=== PATIENT | female | born 1990 | race Caucasian/White ===

== ENCOUNTER → 2020-08-27 08:16 | Outpatient (BNVA) | payer MEDICAID, SELFPAY | PROVIDERS: PCP Registered Nurse; Visit Provider Physician Assistant | DX: Z76.89 Persons encountering health services in other specified circumstances (principal) ==

== ENCOUNTER → 2020-09-03 08:25 | Outpatient (BNVA) | payer MEDICAID, SELFPAY | PROVIDERS: PCP Registered Nurse; Visit Provider Dietitian, Registered | DX: Z76.89 Persons encountering health services in other specified circumstances (principal) ==

== ENCOUNTER → 2020-09-17 08:35 | Outpatient (BNVA) | payer MEDICAID, SELFPAY | PROVIDERS: PCP Registered Nurse; Visit Provider Dietitian, Registered | DX: Z76.89 Persons encountering health services in other specified circumstances (principal) ==

== ENCOUNTER 2021-01-22 17:53 | Emergency (ER) | payer MEDICAID, SELFPAY ==
[2021-01-22 18:37] VITALS: BP 103/79; PULSE 97; RESP 16; TEMP 37; O2SAT 100; BMI 45.4
[2021-01-22] MEDS: Ketorolac Tromethamine 60 MG/2 ML VIAL IM (20:17)
[2021-01-22] MEDS: Lidocaine 4 % Patch ADH..PATCH 1 PATCH TRANSDERMA (20:17)
[2021-01-22] MEDS: Cyclobenzaprine HCl 10 MG TABLET PO (20:17)
--- NOTE | 2021-01-22 21:04 | ED_ITS ---
HPI - Back Pain/Injury General Chief Complaint: Back Pain/Injury Stated Complaint: LOWER BACK PAIN Time Seen by Provider: 01/22/21 19:41 Source: patient Mode of arrival: ambulatory Limitations: no limitations History of Present Illness HPI Narrative: 22-year-old female with bloating past medical history including history of lower back pain states she stooped over to oyster picker some toys from the floor and could not get back up felt sore in the right lower back. States similar episodes in the past he is overweight. She denies any fever, abdominal pain, nausea, vomiting. No GI symptoms. States pain feels better with certain positions and hurts to move in certain positions and alleviated with certain positions. Denies any fall or any other injury. MD elicited complaint: back pain Pertinent past history: prior back pain Onset (ago): day(s) Severity: moderate Similar Symptoms Previously: Yes Quality: aching Location: lumbar spine Radiation: none Exacerbating factors: movement Relieving factors: immobilization Context: while lifting Associated symptoms: denies other symptoms Treatments prior to arrival: cold therapy and heat therapy Work related injury: No Related Data Previous Rx's Medication Instructions Recorded calcium citrate 250 mg 2 tab PO BID #120 tab 09/04/20 calcium-vitamin D3 5 mcg (200 unit) tablet cyclobenzaprine 10 mg PO TID PRN #20 tab 01/22/21 ibuprofen 800 mg PO Q8H PRN #30 tab 01/22/21 oxycodone 5 mg PO Q8H PRN 3 Days #10 tab 01/22/21 Allergies Allergy/AdvReac Type Severity Reaction Status Date / Time No Known Allergies Allergy Verified 01/22/21 18:41 Review of Systems Review of Systems: Constitutional: No Weight loss, No Fever, No Chills, No Night Sweats, No Fatigue, No Malaise ENT/Mouth: No Hearing loss, No Ear Pain, No Nasal Congestion, No Sinus Pain, No Hoarseness, No sore throat, No Rhinorrhea, No Swallowing Difficulty Eyes: No Eye Pain, No Swelling, No Redness, No Foreign Body, No Discharge, No Vision Changes Cardiovascular: No Chest Pain, No SOB, No Dyspnea on Exertion, No Orthopnea, No Edema, No Palpitations Respiratory: No Cough, No Sputum, No Wheezing, No Smoke Exposure, No Dyspnea Gastrointestinal: No Nausea, No Vomiting, No Diarrhea, No Constipation, No abdominal Pain, No Hematochezia, No Melena Genitourinary: no irregular bleeding, No Dysuria, No Urinary Frequency, No Hematuria, No Urinary Incontinence, No Urgency, No Flank Pain, No Urinary Flow Changes, No Hesitancy Musculoskeletal: No joint pain, No Myalgias, No Joint Swelling, as noted per HPI Skin: No Skin Lesions, No rash Neuro: No Weakness, No Numbness, No Paresthesias, No Loss of Consciousness, No Dizziness, No Headache Psych: No Social Issues Heme/Lymph: No Bruising, No Bleeding,No Lymphadenopathy Endocrine: No Polyuria, No Polydipsia, No Temperature Intolerance Yes all other systems are reviewed and are negative [facility] Past Medical History Medical History Intestinal malabsorption following gastrectomy Morbid obesity Surgical History History of sleeve gastrectomy Hx of section Hx of removal of cyst Family History Family History (Updated 08/23/20 @ 08:57 by Liv Mccall MA) Mother No problems noted. Father No problems noted. Brother No problems noted. Brother No problems noted. Son No problems noted. Daughter No problems noted. Social History Social History (Updated 08/23/20 @ 08:58 by Liv Mccall MA) Alcohol intake: never Smoking Status: Never smoker Smoked in Last 30 Days: No Use of substances other than those prescribed or required for medical reasons: No Any prior treatment program specific to substance use: No Advance Directives: No Patient : No Physical Exam Vital Signs: Vital Signs: Last Vital Signs Temp 98.6 F 01/22/21 18:37 Pulse 97 01/22/21 18:37 Resp 16 01/22/21 18:37 BP 103/79 01/22/21 18:37 Pulse Ox 100 01/22/21 18:37 Body Mass Index 45.4 Reviewed Const: General: cooperative and healthy appearing; No acute distress or intoxicated appearing Nutritional Appearance: average body habitus Orientation/consciousness: patient oriented x3 HENMT: Head: Yes normal to inspection Ears: hearing grossly normal bilaterally Eyes: General: appearance normal, both eyes and all related structures Visual Strickland: normal visual strickland by confrontation Neck: Neck: Yes normal visual inspection, No positive Brudzinski's sign, No positive Kernig's sign and No tender Thyroid: Thyroid normal Chest: Chest palpation & inspection: normal inspection of the chest Resp: Effort & Inspection: normal respiratory effort Auscultation: clear to auscultation bilaterally Cardio: Jugular venous distension: no JVD Rhythm: regular rhythm Heart sounds: S1 normal heart sound present and S2 normal heart sound present GI: Inspection: Yes normal to inspection Percussion: Yes normal to percussion Auscultation: normal bowel sounds : General: Yes no CVA tenderness Back/Spine/Pelvis: Back: no CVA tenderness Thoracic/Lumbar Spine: paraspinal muscle tenderness on the right (Over the paraspinous muscle region. No rash, step-off, radiation.) in the lower lumbar and No straight leg raise positive Skin: General skin exam: no rashes or lesions noted Neuro: General: patient oriented x3 Extrem: General: Yes normal to inspection Course Course Course Narrative: AP 30-year-old female presents with acute right lower back pain history obesity stooped over felt like pulling sensation the right lower back findings consistent with lumbar paraspinous muscle strain. Better after IM Toradol and lidocaine patch. No low back pain red flags. Ambulatory status with gait. No signs of GI symptoms. No loss of bowel or bladder control. No low back pain red flags. Will discharge home with close precaution return follow-up instructions. Stable for discharge. Reevaluation(s) Reevaluation #1: Mass pat reviewed without concerning pattern. On re-evaluation feels much better stable for discharge. Discharge Plan Discharge Clinical Impression: Strain of lumbar region Patient Disposition: Home, Self-Care Instructions: Low Back Strain (ED), Lower Back Exercises (ED) Additional Instructions: Warm compresses Gentle stretching Who precautions Take medication prescribed Do not drink alcohol or drive while taking the pain and muscle relaxants. Return to emergency room if any concerns or worsening symptoms Thank you Prescriptions: New cyclobenzaprine 10 mg tablet 10 mg PO TID PRN (Reason: muscle spasm) Qty: 20 RF: 0 ibuprofen 800 mg tablet 800 mg PO Q8H PRN (Reason: pain) Qty: 30 RF: 0 oxycodone 5 mg tablet 5 mg PO Q8H PRN (Reason: pain) 3 Days Qty: 10 RF: 0 No Action calcium citrate-vitamin D3 250 mg-5 mcg (200 unit) tablet 2 tab PO BID Qty: 120 RF: 11 Referrals: Physician,Unknown [Primary Care Provider] - 5 days
== END 2021-01-22 21:52 | disposition home or self-care (01) ==
PROVIDERS: Emergency Provider Internal Medicine
DX: S39.012A Strain of muscle, fascia and tendon of lower back, initial encounter (principal); X58.XXXA Exposure to other specified factors, initial encounter; Y93.9 Activity, unspecified; Y92.9 Unspecified place or not applicable; Y99.9 Unspecified external cause status
CPT/HCPCS: 96372; 99284; J1885

== ENCOUNTER 2021-12-03 15:45 | Outpatient (REF) | payer MEDICAID, SELFPAY ==
[2021-12-03 17:01] LABS: MANUAL DIFF FLAG NO
[2021-12-03 17:39] LABS: Basophils Percent Auto 0.5 % (0-2); Eosinophils Percent Auto 0.3 % (0-4); Hematocrit 38.6 % (37.0-47.0); Hemoglobin 12.4 g/dl (12.0-16.0); Imm Gran Abs Auto 0.02 X10*3/uL (0.00-0.03); Imm Gran Pct Auto 0.3 % (0.0-0.4); Lymphocytes Absolute Auto 2.2 X10*3/uL (1.2-4.9); Lymphocytes Percent Auto 34.9 % (20-40); Mean Corpuscular HGB Conc 32.1 g/dl (31.0-35.0); Mean Corpuscular Hemoglobin 27.9 pg (27.0-33.0); Mean Corpuscular Volume 86.9 fL (80.0-98.0); Monocytes Absolute Auto 0.3 X10*3/uL (0.1-1.2); Monocytes Percent Auto 4.9 % (2-11); Neutrophils Absolute Auto 3.7 x10*3/uL (2.0-8.3); Neutrophils Percent Auto 59.1 % (45-73); Platelet Count 342 X10*3/uL (160-400); Red Blood Count 4.44 X10*6/uL (4.20-5.50); Red Cell Distribution Width 13.3 % (11.0-16.0); White Blood Count 6.3 X10*3/uL (4.8-10.8)
[2021-12-03 17:48] LABS: Estimated Average Glucose 94 mg/dL; Hemoglobin A1c % 4.9 %
[2021-12-03 18:51] LABS: Anion Gap 14 (12-20); Blood Urea Nitrogen 9 mg/dL (9-16); C Reactive Protein 0.53 mg/dL (< or = 0.50); Calcium 9.6 mg/dL (8.4-10.2); Carbon Dioxide 22 mmol/L (22-29); Chloride 108 mmol/L (96-108); Cholesterol 155 mg/dL; Estimated Glomerular Filt Rate > 60; Glucose Random 78 mg/dL (60-115); HDL Cholesterol 43 mg/dL; Iron 30 mcg/dL (30-160); LDL Cholesterol Calculated 100 mg/dl; Potassium 4.1 mmol/L (3.3-5.1); Sodium 140 mmol/L (135-145); Triglycerides 64 mg/dL
[2021-12-03 18:56] LABS: Percent Iron Saturation 9 % (15-50); Total Iron Binding Capacity 334 mcg/dL (228-428); Unsaturated Iron Binding 304 ug/dL
[2021-12-03 19:09] LABS: Ferritin 21 ng/mL (10-122); Vitamin D 25-OH Total 18.9 ng/mL (>30)
[2021-12-03 19:20] LABS: Folate 9.9 ng/mL (> or = 4.0); Vitamin B12 245 pg/mL (200-900)
[2021-12-09 02:46] LABS: Zinc 61 mcg/dL (60-130)
[2021-12-11 18:37] LABS: Vitamin A 32 mcg/dL (38-98); Vitamin B1 10 nmol/L (8-30)
== END 2021-12-03 15:46 | disposition home or self-care (01) ==
LOC: HO.LAB 15:45
PROVIDERS: PCP Registered Nurse Community Health; Referring Provider Registered Nurse Community Health; Visit Provider Physician Assistant Surgical
DX: E66.01 Morbid (severe) obesity due to excess calories (principal)
CPT/HCPCS: 36415; 80048; 80061; 82306; 82607; 82728; 82746; 83036; 83540; 84425; 84443; 84590; 84630; 85025; 86140; 99212

== ENCOUNTER → 2022-01-20 15:28 | Outpatient (BNVA) | payer MEDICAID, SELFPAY | PROVIDERS: PCP Registered Nurse Community Health; Referring Provider Registered Nurse Community Health; Visit Provider Physician Assistant Surgical | DX: E66.01 Morbid (severe) obesity due to excess calories (principal); Z68.41 Body mass index [BMI] 40.0-44.9, adult; Z98.84 Bariatric surgery status | CPT/HCPCS: 99212 ==

== ENCOUNTER 2022-06-30 14:28 | Outpatient (REF) | payer MEDICAID, SELFPAY ==
[2022-06-30 14:59] LABS: HCG Quantitative < 2 mIU/mL
== END 2022-06-30 14:29 | disposition home or self-care (01) ==
LOC: HO.LAB 14:28
PROVIDERS: Visit Provider Registered Nurse
DX: Z00.00 Encounter for general adult medical examination without abnormal findings (principal)
CPT/HCPCS: 36415; 84702

== ENCOUNTER 2022-07-30 12:47 | Outpatient (REF) | payer MEDICAID, SELFPAY ==
--- NOTE | ~2022-07-30 | US_ITS ---
EXAMINATION: US PELVIS CLINICAL INFORMATION: Follow-up left ovarian cyst from 2018, irregular periods. COMPARISON: 12/24/2017 TECHNIQUE: Ultrasound of the pelvis is performed using both transabdominal and transvaginal transducers along with Doppler. Transvaginal imaging is performed due to inadequate visualization transabdominally. FINDINGS: The uterus is heterogeneous and measures 9.7 x 4.0 x 5.5 cm. No discrete fibroids identified. Endometrial thickness is 1.9 cm. Endometrium appears extremely heterogeneous. Moderate amount of free fluid in the pelvis. Nabothian cysts identified. Right ovary is unremarkable and measures 3.5 x 2.4 x 2.7 cm, volume 12.0 mL. Left ovary measures 3.0 x 2.5 x 3.5 cm, volume 13.2 mL. Left ovarian 1.7 x 1.7 x 1.6 cm complex cyst with thick irregular villalobos, possibly a corpus luteum. US/US pelvic and transvaginal IMPRESSION: 1. No discrete fibroids. 2. Extremely heterogeneous endometrium with thickness of 1.9 cm. Correlation with menstrual history recommended. 3. Moderate amount of free fluid in the pelvis. 4. Left ovarian 1.7 cm complex cyst with thick villalobos, possibly a corpus luteum.
== END 2022-07-30 12:48 | disposition home or self-care (01) ==
LOC: HO.HMGCX 12:47
PROVIDERS: PCP Registered Nurse Community Health; Visit Provider Advanced Practice Midwife
DX: N83.292 Other ovarian cyst, left side (principal); N92.0 Excessive and frequent menstruation with regular cycle
CPT/HCPCS: 76830; 76856

== ENCOUNTER 2022-09-27 20:11 | Outpatient (REF) | payer MEDICAID, SELFPAY ==
[2022-09-27 20:38] LABS: COVID-19 Test Negative (Negative); IDNOW Serial# 6674DD1D
== END 2022-09-27 20:12 | disposition home or self-care (01) ==
LOC: HO.LAB 20:11
PROVIDERS: Visit Provider Internal Medicine
DX: Z20.822 Contact with and (suspected) exposure to COVID-19 (principal)
CPT/HCPCS: 87635

== ENCOUNTER 2022-12-24 10:50 | Outpatient (REF) | payer MEDICAID, SELFPAY ==
[2022-12-24 11:29] LABS: MANUAL DIFF FLAG NO
[2022-12-24 11:31] LABS: Basophils Percent Auto 0.5 % (0-2); Eosinophils Percent Auto 0.6 % (0-4); Hematocrit 36.6 % (37.0-47.0); Hemoglobin 11.8 g/dl (12.0-16.0); Imm Gran Abs Auto 0.03 X10*3/uL (0.00-0.03); Imm Gran Pct Auto 0.5 % (0.0-0.4); Lymphocytes Absolute Auto 2.3 X10*3/uL (1.2-4.9); Lymphocytes Percent Auto 35.7 % (20-40); Mean Corpuscular HGB Conc 32.2 g/dl (31.0-35.0); Mean Corpuscular Hemoglobin 26.1 pg (27.0-33.0); Mean Platelet Volume 9.9 fL (9.4-12.3); Monocytes Absolute Auto 0.4 X10*3/uL (0.1-1.2); Monocytes Percent Auto 6.2 % (2-11); Neutrophils Absolute Auto 3.7 x10*3/uL (2.0-8.3); Neutrophils Percent Auto 56.5 % (45-73); Platelet Count 361 X10*3/uL (160-400); Red Blood Count 4.52 X10*6/uL (4.20-5.50); Red Cell Distribution Width 13.3 % (11.0-16.0); White Blood Count 6.5 X10*3/uL (4.8-10.8)
[2022-12-24 11:55] LABS: Iron 55 mcg/dL (30-160); Percent Iron Saturation 18 % (15-50); Total Iron Binding Capacity 312 mcg/dL (228-428); Unsaturated Iron Binding 257 ug/dL
[2022-12-24 12:13] LABS: Ferritin 12 ng/mL (10-122); Vitamin D 25-OH Total 13.4 ng/mL (>30)
== END 2022-12-24 10:51 | disposition home or self-care (01) ==
LOC: HO.LAB 10:50
PROVIDERS: PCP Registered Nurse; Visit Provider Registered Nurse
DX: R53.83 Other fatigue (principal)
CPT/HCPCS: 36415; 82306; 82728; 83540; 84443; 85025

== ENCOUNTER 2023-03-22 19:10 | Emergency (ER) | payer MEDICAID, SELFPAY ==
[2023-03-22 19:24] VITALS: BP 137/82; PULSE 82; RESP 16; TEMP 37.2; O2SAT 100; BMI 46.3
--- NOTE | 2023-03-22 19:28 | ED.GENADULT ---
HPI - General Adult General Chief complaint: General Medical Stated complaint: bump on back of head Time Seen by Provider: 03/23/23 00:56 Source: patient, RN notes reviewed and old records reviewed Mode of arrival: ambulatory Limitations: no limitations History of Present Illness HPI narrative: 32-year-old female presents for evaluation of a rash on her right forearm She also complains of a bump behind her right ear in the back of her head Patient reports that she frequently goes to the park. About 1 week ago she noticed a small red rash on her right forearm/wrist while washing hands. She states that it has been getting progressively more red over last few days She reports over last 2 days she noticed a small bump behind her right ear Denies any fevers or chills No other complaints or concerns Related Data Previous Rx's Medication Instructions Recorded doxycycline hyclate 100 mg tablet 100 mg PO BID #20 tabs 03/23/23 Allergies Allergy/AdvReac Type Severity Reaction Status Date / Time No Known Allergies Allergy Verified 12/03/21 15:57 Review of Systems Constitutional: Constitutional: Denies chills, Denies fever(s) and Reports headache(s) ENT: Reports headache(s) Integumentary/Breasts: Skin/Breast: Reports erythema and Reports rash Neurologic: Reports headache(s) Hematologic/Lymphatic: Hematologic/Lymphatic: Reports lymphadenopathy PMFSH Past Medical History Medical History Intestinal malabsorption following gastrectomy Morbid obesity Surgical History History of sleeve gastrectomy Hx of section Hx of removal of cyst Family History Family History Mother No problems noted. Father No problems noted. Brother No problems noted. Brother No problems noted. Son No problems noted. Daughter No problems noted. Social History Social History Alcohol intake: current Alcohol intake frequency: holidays/special occasions only Patient Tobacco Use Status: Current someday Tobacco user Smoked in Last 30 Days: No e-Cigarette/Vaping Use: Currently Using Use of substances other than those prescribed or required for medical reasons: No Advance Directives: No Advance Directives Information Provided: Yes Physical Exam ED Vital Signs: Vital Signs - 24 hr 03/22/23 19:24 03/22/23 23:51 Temperature 99.0 F 97.8 F Pulse Rate 82 74 Respiratory Rate 16 16 Blood Pressure 137/82 118/72 Pulse Oximetry 100 100 Oxygen Delivery Method Room Air Room Air BMI result Body Mass Index 46.3 Const Other: Enlarged right posterior auricular lymphadenopathy no overlying skin changes HENMT Ears: external ears normal, TM's normal bilaterally and TM normal on the right Skin Other: Small round erythematous rash that does have a slight target appearance Course Course Course Narrative: RME: 32 yold female presents to the ED for right arm bug bite with small erythema itchiness. Secondary complaint is painful lump on right side of occipial/neck. no posterior cervical spine tenderness. Medical Decision Making Medical Decision Making MDM Narrative: Patient has a small area of erythema that is likely of infectious in etiology possibly from a bug bite. It does have a slight target appearance raising concern for Lyme disease. Will send a Lyme titer and the patient be discharged with doxycycline b.i.d. times 10 days. A Lyme test was ordered. The patient has no evidence of otitis media, otitis externa or mastoiditis Differential Diagnosis Cellulitis Lymphadenopathy Lyme disease Otitis media Otitis externa Lab Data Labs: Lab Results 03/22/23 Range/Units 23:56 Urine Test NEGATIVE (NEGATIVE) Discharge Plan Discharge Clinical Impression: Cellulitis Patient Disposition: Home, Self-Care Instructions: Cellulitis (ED) Additional Instructions: You appear to have an early cellulitis. It is not entirely clear if it is actually Lyme disease or not. And Lyme disease test was ordered but will not result today. Take doxycycline twice daily for 10 days. Return for new or worsening symptoms Prescriptions: New doxycycline hyclate 100 mg tablet 100 mg PO BID Qty: 20 0RF
[2023-03-22 23:51] VITALS: BP 118/72; PULSE 74; RESP 16; TEMP 36.6; O2SAT 100
--- NOTE | 2023-03-22 23:58 | MHC.EDTECH ---
THIS PCT ASSUMED CARE OF PT AT 2315 ,VITALS SIGN TAKEN ,PT URINE SAMPLE COLLECTED AND SENT TO LAB .
[2023-03-23 01:25] VITALS: BP 126/74; PULSE 72; RESP 16; TEMP 37.1; O2SAT 97
== END 2023-03-23 01:26 | disposition home or self-care (01) ==
PROVIDERS: Emergency Provider Emergency Medicine
DX: L03.113 Cellulitis of right upper limb (principal); R21 Rash and other nonspecific skin eruption; R22.1 Localized swelling, mass and lump, neck
CPT/HCPCS: 36415; 81025; 86617; 86618; 99283; 99284

== ENCOUNTER 2023-04-09 12:17 | Outpatient (REF) | payer MEDICAID, SELFPAY ==
[2023-04-09 13:55] LABS: MANUAL DIFF FLAG NO
[2023-04-09 14:03] LABS: Basophils Percent Auto 0.3 % (0-2); Eosinophils Percent Auto 0.2 % (0-4); Hematocrit 37.6 % (37.0-47.0); Imm Gran Abs Auto 0.02 X10*3/uL (0.00-0.03); Imm Gran Pct Auto 0.3 % (0.0-0.4); Lymphocytes Absolute Auto 1.9 X10*3/uL (1.2-4.9); Lymphocytes Percent Auto 31.4 % (20-40); Mean Corpuscular HGB Conc 31.9 g/dl (31.0-35.0); Mean Corpuscular Hemoglobin 26.6 pg (27.0-33.0); Mean Corpuscular Volume 83.4 fL (80.0-98.0); Mean Platelet Volume 10.8 fL (9.4-12.3); Monocytes Absolute Auto 0.5 X10*3/uL (0.1-1.2); Monocytes Percent Auto 7.5 % (2-11); Neutrophils Absolute Auto 3.7 x10*3/uL (2.0-8.3); Neutrophils Percent Auto 60.3 % (45-73); Platelet Count 332 X10*3/uL (160-400); Red Blood Count 4.51 X10*6/uL (4.20-5.50); Red Cell Distribution Width 13.4 % (11.0-16.0); White Blood Count 6.1 X10*3/uL (4.8-10.8)
[2023-04-09 14:53] LABS: Iron 58 mcg/dL (30-160); Percent Iron Saturation 19 % (15-50); Total Iron Binding Capacity 308 mcg/dL (228-428); Unsaturated Iron Binding 250 ug/dL
[2023-04-09 14:54] LABS: Ferritin 19 ng/mL (10-122)
== END 2023-04-09 12:18 | disposition home or self-care (01) ==
LOC: HO.LAB 12:17
PROVIDERS: Visit Provider Registered Nurse
DX: E61.1 Iron deficiency (principal)
CPT/HCPCS: 36415; 82728; 83540; 85025

== ENCOUNTER 2023-08-08 15:10 | Emergency (ER) | payer OTHER, SELFPAY ==
--- NOTE | ~2023-08-08 | XR_ITS ---
EXAMINATION: XR LUMBOSACRAL SPINE CLINICAL INFORMATION: Back pain COMPARISON: None available. TECHNIQUE: Three views of the lumbosacral spine. FINDINGS: The vertebral bodies and posterior elements are normal. The disc spaces are preserved and the vertebral alignment is normal. The paraspinal soft tissues are normal. XR/XR lumbar spine 2-3V IMPRESSION: No significant osseous changes to explain patient's pain symptoms.
[2023-08-08 15:50] VITALS: BP 146/81; PULSE 100; RESP 18; TEMP 36.7; O2SAT 98; BMI 45.2
--- NOTE | 2023-08-08 15:56 | ED.GENADULT ---
HPI - General Adult General Chief complaint: Back Pain/Injury Stated complaint: R lower back pain Time Seen by Provider: 08/08/23 19:43 Source: patient Mode of arrival: ambulatory Limitations: no limitations History of Present Illness HPI narrative: 33 yold female presents to the ED for chronic low back pain exacerbation since this morning. patient states pain is worse on movement. patient denies any urinary/bowel incontinience, abdominal pain, nausea, vomitting, dysuira, hematuira, numbness/tingling of lower extremiteis, or any recent trauam. Related Data Previous Rx's Medication Instructions Recorded doxycycline hyclate 100 mg tablet 100 mg PO BID #20 tabs 03/23/23 cyclobenzaprine 10 mg tablet 10 mg PO TID PRN muscle spasm 5 08/08/23 days #15 tabs ketorolac 10 mg tablet 10 mg PO QID PRN pain 5 days #20 08/08/23 tabs Allergies Allergy/AdvReac Type Severity Reaction Status Date / Time No Known Allergies Allergy Verified 08/08/23 15:50 Review of Systems Review of Systems: low back pain worse no movement. Yes all other systems are reviewed and are negative [facility] Past Medical History Medical History Intestinal malabsorption following gastrectomy Morbid obesity Surgical History History of sleeve gastrectomy Hx of section Hx of removal of cyst Family History Family History Mother No problems noted. Father No problems noted. Brother No problems noted. Brother No problems noted. Son No problems noted. Daughter No problems noted. Social History Social History Alcohol intake: current Alcohol intake frequency: holidays/special occasions only Patient Tobacco Use Status: Current someday Tobacco user e-Cigarette/Vaping Use: Currently Using Advance Directives: No Advance Directives Information Provided: No Physical Exam ED Vital Signs: Vital Signs - 24 hr 08/08/23 15:50 Temperature 98.0 F Pulse Rate 100 Respiratory Rate 18 Blood Pressure 146/81 H Pulse Oximetry 98 Oxygen Delivery Method Room Air BMI result Body Mass Index 45.2 Const General: cooperative, healthy appearing, comfortable, no acute distress, well developed, alert and awake Orientation/consciousness: oriented to person, oriented to place, oriented to time and patient oriented x3 HENVA Head: Yes normal to inspection, Yes No palpable skull fracture present, Yes normocephalic and Yes atraumatic Ears: hearing grossly normal bilaterally, external ears normal, TM's normal bilaterally, TM normal on the right, TM normal on the left and EAC's normal Throat: Yes posterior oropharynx normal, Yes tonsils normal and Yes uvula midline Eyes General: appearance normal, both eyes and all related structures Neck Neck: Yes normal visual inspection, Yes full ROM, Yes no lymphadenopathy, Yes no meningeal signs, Yes trachea midline, Yes supple, No anterior neck swelling and No tender Chest Chest palpation & inspection: normal inspection of the chest and normal palpation of entire chest wall Resp Effort & Inspection: normal respiratory effort and able to speak in complete sentences Auscultation: clear to auscultation bilaterally Cardio Jugular venous distension: no JVD Heart sounds: S1 normal heart sound present and S2 normal heart sound present GI Inspection: Yes normal to inspection Palpation (GI): Soft to palpation, not firm, nontender, no guarding and not rigid General: Yes no CVA tenderness Back/Spine/Pelvis Back: no CVA tenderness and back tenderness (lumbar spine tenderness) Skin General skin exam: no rashes or lesions noted, elasticity normal and turgor normal Neuro General: oriented to person, oriented to place, oriented to time, patient oriented x3, gait normal, tone normal, moves all extremities, Normal light touch and pain sensation, no meningeal signs and no focal motor deficits Extrem General: Yes normal to inspection, Yes full ROM and Yes capillary refill normal Psych Appearance: grossly normal, well kempt and not disheveled Course Course Course Narrative: RME: 33 yold female presents to the ED for lower back that is worse movement. Patient states no symptoms or abdominal pain. xray and UA uCG ordered Medications Administered Discontinued Medications Generic Name Dose Route Start Last Admin Trade Name Freq PRN Reason Stop Dose Admin Cyclobenzaprine HCl 10 mg 08/08/23 19:50 08/08/23 20:12 Cyclobenzaprine Hcl 10 Mg Tablet PO 08/08/23 19:51 10 mg ONCE ONE Administration Ketorolac Tromethamine 30 mg 08/08/23 19:50 08/08/23 20:12 Ketorolac Tromethamine 30 Mg/Ml Vial IM 08/08/23 19:51 30 mg ONCE ONE Administration Medical Decision Making Medical Decision Making [facility] Narrative: 33 yold female presents to the ED chronic low back pain exacerbation that is worse on movement and radating down legs. patient deniesny any urinary/owel incontinecen, IV drug use, pmh of HIV/HEpatitis, recent trauma, abdoominal pain, nuasea, vomitting, dysuria, hematuria, flank pain, or weakness in extremiteis, UA and xray normal. Sciatica diagnosis. not suspecting caudina equina or epidural absscess. Differential Diagnosis Differential Diagnoses: The differential diagnosis associated with the presentation includes (uti, spine fracture, kidney stones, pyelonephritis, lumbar radicoplathy, scaiatica) Admission/Observation Consideration of admission/observation: Escalation of care including admission/observation considered Lab Data Labs: Lab Results 08/08/23 Range/Units 16:25 Urine Color Yellow Urine Appearance Clear Urine pH 6.0 (5.0-9.0) Ur Specific [place] 1.020 (1.005-1.025) Urine Protein Negative (Neg-Trace) mg/dL Urine Glucose (UA) Negative (Negative) mg/dL Urine Ketones Negative (Negative) mg/dL Urine Blood Negative (Negative) Urine Nitrite Negative (Negative) Ur Leukocyte Esterase Trace H (Negative) Urine RBC 0-2 (0-2) /HPF Urine WBC 0-5 (0-5) /HPF Ur Squamous Epith Cells 11-20 (0-2) /HPF Urine Bacteria 4+ (None Seen) Hyaline Casts 0-2 (0-2) /LPF Urine Test NEGATIVE (NEGATIVE) Independent Interpretation I performed an independent interpretation of an: Plain X-Ray Radiology Impression Discussion of test interpretation with radiology: I have reviewed the radiologist's reading. External Record Review External record reviewed: Other (Prior ED visit) Prescription Management I considered prescription management with: Pain Medication Discharge Plan Discharge Clinical Impression: Sciatica Patient Disposition: Home, Self-Care Instructions: Sciatica (ED), Acute Low Back Pain (ED) Additional Instructions: Return to the ED for any worsening back pain, urinary/bowel incontinence, abdominal pain, nausea, vomiting, flank pain, fever, chills, numbness/tingling/paralysis of lower extremities, or any other concerning symptoms. Pleaes follow up with PCP Prescriptions: New cyclobenzaprine 10 mg tablet 10 mg PO TID PRN (Reason: muscle spasm) 5 Days Qty: 15 0RF Rx Instructions: side effect is drowsiness. Do not take not at work or while driving. ketorolac 10 mg tablet 10 mg PO QID PRN (Reason: pain) 5 Days Qty: 20 0RF Rx Instructions: received toradol 30mg IM at home No Action doxycycline hyclate 100 mg tablet 100 mg PO BID Qty: 20 0RF Stand Alone Forms: Work/School Release Interventions: ED Discharge Assessment Last Done: 08/08/23 21:32 Discharge Date/Time: 08/08/23 21:33 Print Language: Kyrgyz
[2023-08-08 16:49] LABS: Appearance Urine Clear; Color Urine Yellow; Glucose Urine UA Negative (Negative); Leukocyte Esterase Urine Trace (Negative); Nitrite Urine Negative (Negative); UMIC TRIGGER UACC YES; Urine Blood Negative (Negative); Urine Ketones Negative (Negative); Urine Protein Negative (Neg-Trace)
[2023-08-08 16:51] LABS: Bacteria Urine 4+ (None Seen); Hyaline Casts Urine 0-2 /LPF (0-2); RBC Urine 0-2 /HPF (0-2); WBC Urine 0-5 /HPF (0-5)
[2023-08-08 16:54] LABS: UPreg QC Valid YES; Urine Pregnancy NEGATIVE (NEGATIVE)
[2023-08-08] MEDS: Cyclobenzaprine HCl 10 MG TABLET PO (20:12)
[2023-08-08] MEDS: Ketorolac Tromethamine 30 MG/ML VIAL IM (20:12)
== END 2023-08-08 21:33 | disposition home or self-care (01) ==
PROVIDERS: Physician Assistant; Emergency Provider Student in an Organized Health Care Education/Training Program
DX: M54.41 Lumbago with sciatica, right side (principal); M79.605 Pain in left leg; M79.604 Pain in right leg; F17.200 Nicotine dependence, unspecified, uncomplicated; Z71.6 Tobacco abuse counseling; Z79.899 Other long term (current) drug therapy
CPT/HCPCS: 72100; 81001; 81025; 96372; 99283; 99284; J1885

== ENCOUNTER 2023-08-11 15:16 | Outpatient (REF) | payer OTHER, SELFPAY ==
[2023-08-11 17:44] LABS: Anion Gap 9 (12-20); Blood Urea Nitrogen 12 mg/dL (9-16); Calcium 8.8 mg/dL (8.4-10.2); Carbon Dioxide 26 mmol/L (22-29); Chloride 107 mmol/L (96-108); Estimated Glomerular Filt Rate > 60; Glucose Random 82 mg/dL (60-115); Sodium 138 mmol/L (135-145)
== END 2023-08-11 15:17 | disposition home or self-care (01) ==
LOC: HO.CHCLDS 15:16
PROVIDERS: Visit Provider Internal Medicine
DX: M54.50 Low back pain, unspecified (principal); M54.2 Cervicalgia; G89.29 Other chronic pain
CPT/HCPCS: 36415; 80048

== ENCOUNTER 2023-10-07 14:00 | Outpatient (RCR) | payer OTHER, SELFPAY | END 2023-10-19 11:00 | disposition home or self-care (01) | LOC: HO.PT 14:00 | PROVIDERS: PCP Registered Nurse; Visit Provider Internal Medicine | DX: G89.29 Other chronic pain (principal); M54.50 Low back pain, unspecified | CPT/HCPCS: 97110; 97112; 97161 ==

== ENCOUNTER 2024-01-06 08:41 | Outpatient (REF) | payer OTHER, SELFPAY ==
[2024-01-06 10:02] LABS: MANUAL DIFF FLAG NO
[2024-01-06 10:07] LABS: Basophils Percent Auto 0.6 % (0-2); Eosinophils Percent Auto 0.3 % (0-4); Hematocrit 39.5 % (37.0-47.0); Hemoglobin 12.8 g/dl (12.0-16.0); Imm Gran Abs Auto 0.03 X10*3/uL (0.00-0.03); Imm Gran Pct Auto 0.4 % (0.0-0.4); Lymphocytes Absolute Auto 2.1 X10*3/uL (1.2-4.9); Lymphocytes Percent Auto 30.6 % (20-40); Mean Corpuscular HGB Conc 32.4 g/dl (31.0-35.0); Mean Corpuscular Hemoglobin 26.8 pg (27.0-33.0); Mean Corpuscular Volume 82.8 fL (80.0-98.0); Mean Platelet Volume 10.5 fL (9.4-12.3); Monocytes Absolute Auto 0.5 X10*3/uL (0.1-1.2); Monocytes Percent Auto 6.8 % (2-11); Neutrophils Absolute Auto 4.3 x10*3/uL (2.0-8.3); Neutrophils Percent Auto 61.3 % (45-73); Platelet Count 395 X10*3/uL (160-400); Red Blood Count 4.77 X10*6/uL (4.20-5.50); Red Cell Distribution Width 13.2 % (11.0-16.0); White Blood Count 6.9 X10*3/uL (4.8-10.8)
[2024-01-06 10:11] LABS: Appearance Urine Clear; Color Urine Dark Yellow; Glucose Urine UA Negative (Negative); Leukocyte Esterase Urine Negative (Negative); Nitrite Urine Negative (Negative); PH 5.5 (5.0-9.0); Specific Gravity - Urine 1.025 (1.005-1.025); Urine Blood Negative (Negative); Urine Ketones Trace mg/dL (Negative); Urine Protein Negative (Neg-Trace)
[2024-01-06 10:14] LABS: Bacteria Urine Trace (None Seen); Hyaline Casts Urine 0-2 /LPF (0-2); RBC Urine 0-2 /HPF (0-2); Squamous Epithelial Cell Urine 0-2 /HPF (0-2); WBC Urine 0-5 /HPF (0-5)
[2024-01-06 10:31] LABS: Iron 35 mcg/dL (30-160); Percent Iron Saturation 10 % (15-50); Total Iron Binding Capacity 359 mcg/dL (228-428); Unsaturated Iron Binding 324 ug/dL
[2024-01-06 10:45] LABS: Ferritin 10 ng/mL (10-122); Vitamin D 25-OH Total 16.1 ng/mL (>30)
[2024-01-06 17:54] LABS: Folate 6.8 ng/mL (> or = 4.0); Vitamin B12 279 pg/mL (200-900)
== END 2024-01-06 08:42 | disposition home or self-care (01) ==
LOC: HO.LAB 08:41
PROVIDERS: PCP Registered Nurse; Visit Provider Registered Nurse
DX: E61.1 Iron deficiency (principal); E55.9 Vitamin D deficiency, unspecified; R10.9 Unspecified abdominal pain; Z98.84 Bariatric surgery status
CPT/HCPCS: 36415; 81001; 82306; 82607; 82728; 82746; 83540; 85025

== ENCOUNTER 2024-01-12 18:18 | Outpatient (REF) | payer OTHER, SELFPAY | END 2024-01-12 18:19 | disposition home or self-care (01) | LOC: HO.HHCLNP 18:18 | PROVIDERS: Visit Provider Registered Nurse | DX: K13.70 Unspecified lesions of oral mucosa (principal) | CPT/HCPCS: 87255 ==

== ENCOUNTER 2024-07-12 09:56 | Outpatient (REF) | payer OTHER, SELFPAY ==
[2024-07-12 10:50] LABS: MANUAL DIFF FLAG NO
[2024-07-12 11:03] LABS: Basophils Percent Auto 0.5 % (0-2); Eosinophils Percent Auto 0.3 % (0-4); Hematocrit 37.9 % (37.0-47.0); Hemoglobin 12.6 g/dl (12.0-16.0); Imm Gran Abs Auto 0.02 X10*3/uL (0.00-0.03); Imm Gran Pct Auto 0.3 % (0.0-0.4); Lymphocytes Percent Auto 33.8 % (20-40); Mean Corpuscular HGB Conc 33.2 g/dl (31.0-35.0); Mean Corpuscular Hemoglobin 27.9 pg (27.0-33.0); Mean Platelet Volume 10.9 fL (9.4-12.3); Monocytes Absolute Auto 0.3 X10*3/uL (0.1-1.2); Monocytes Percent Auto 5.8 % (2-11); Neutrophils Absolute Auto 3.5 x10*3/uL (2.0-8.3); Neutrophils Percent Auto 59.3 % (45-73); Platelet Count 314 X10*3/uL (160-400); Red Blood Count 4.51 X10*6/uL (4.20-5.50); Red Cell Distribution Width 13.1 % (11.0-16.0); White Blood Count 5.9 X10*3/uL (4.8-10.8)
[2024-07-12 11:59] LABS: Iron 62 mcg/dL (30-160); Percent Iron Saturation 20 % (15-50); Total Iron Binding Capacity 309 mcg/dL (228-428); Unsaturated Iron Binding 247 ug/dL
[2024-07-12 12:14] LABS: Folate 10.4 ng/mL (> or = 4.0); Vitamin B12 194 pg/mL (200-900)
[2024-07-12 12:16] LABS: Ferritin 15 ng/mL (10-122); Vitamin D 25-OH Total 25.8 ng/mL (>30)
== END 2024-07-12 09:57 | disposition home or self-care (01) ==
LOC: HO.LAB 09:56
PROVIDERS: PCP Registered Nurse; Visit Provider Registered Nurse
DX: E55.9 Vitamin D deficiency, unspecified (principal); E61.1 Iron deficiency; R53.83 Other fatigue
CPT/HCPCS: 36415; 82306; 82607; 82728; 82746; 83540; 83735; 85025

== ENCOUNTER 2024-10-18 16:45 | Outpatient (REF) | payer OTHER, SELFPAY ==
--- OUTSIDE RECORDS SUMMARY | 2024-10-18 17:54 | XMS_ITS | Clinical Summary ---
Author Organization [employer] Address [address] [facility] [address] [place] [address] Care Team Providers Care Director Of Business Development Name Role Phone Fely Bey IZZY Primary Care Provider [phone] Allergies No known active allergies Medications cholecalciferol (Vitamin D3) 25 MCG (1000 UT) tabletIndication s:Vitamin D insufficiency Take 1 tablet (25 mcg) by mouth Once daily. 90 tablet 3 024 Active cyanocobalamin (Vitamin B-12) 1000 MCG tabletIndication s:Vitamin B12 deficiency Take 1 tablet (1,000 mcg) by mouth Once per day. 90 tablet 1 024 2024 Active Chelsea 30 MG tablet TAKE 1 TABLET SOON POSSIBLE WITHIN 5 DAYS AFTER UNPROTECTED SEX OR IF YOU HAD A CONTROL FAILURE. MAY BE TAKEN WITH OR WITHOUT FOOD. 1 tablet 3 025 Active D-MANNOSE PO Take by mouth. Over the counter supplement: O-POSITIVE. Contains Vit C, D-mannose, and Cranberry extract Active celecoxib (CeleBREX) 200 MG capsuleIndicatio ns:Left lower quadrant abdominal pain Take 1 capsule (200 mg) by mouth 2 times daily. 20 capsule 025 2024 Active Semaglutide-Weig ht Management (Wegovy) 1.7 MG/0.75ML solution auto-injectorInd ications:Class 3 severe obesity without serious comorbidity with body mass index (BMI) of 40.0 to 44.9 in adult, unspecified obesity type (CMS/HCC) Inject 1.7 mg subcutaneously weekly 3 mL 3 025 Active fluconazole (Diflucan) 150 MG tabletIndication s:Vaginal itching Take 1 tablet (150 mg) by mouth 1 (one) time for 1 dose. Repeat in 72 hours if symptoms persist. 2 tablet 025 2024 Active etonogestrel-eth inyl estradiol (Nuvaring) 0.12-0.015 MG/24HR vaginal ring Insert 1 Ring into the vagina. 022 2024 Discontinued(T herapy completed) Chelsea 30 MG tablet TAKE 1 TABLET SOON POSSIBLE WITHIN 5 DAYS AFTER UNPROTECTED SEX OR IF YOU HAD A CONTROL FAILURE. MAY BE TAKEN WITH OR WITHOUT FOOD. 022 2024 Discontinued(R eorder (will not trigger notification to Pharmacy)) ferrous gluconate (Fergon) 324 (38 Fe) MG tablet Take 1 pill every Wednesday, Wednesday, and Wednesday. Take with a full glass of water or Vit C containing juice, and ideally 1 hour before a meal or 2 hours after a meal 36 tablet 023 2024 Discontinued(T herapy completed) Multiple Vitamin (multivitamin) tablet Take 1 tablet by mouth at bedtime. Separate from Iron tablets by at least 2 hours. 90 tablet 3 023 2024 Discontinued(T herapy completed) ulipristal (Chelsea) 30 mg tablet Take one tablet by mouth up to five days after sex. Do not use more than once per menstrual cycle. If repeat dose is needed in same cycle, please contact prescriber. 1 tablet 11 024 2024 Discontinued(T herapy completed) Semaglutide-Weig ht Management (Wegovy) 1.7 MG/0.75ML solution auto-injectorInd ications:Class 3 severe obesity without serious comorbidity with body mass index (BMI) of 40.0 to 44.9 in adult, unspecified obesity type (CMS/HCC) Inject 1.7 mg subcutaneously weekly 3 mL 3 024 2024 Discontinued(R eorder (will not trigger notification to Pharmacy)) celecoxib (CeleBREX) 200 MG capsuleIndicatio ns:Left lower quadrant abdominal pain Take 1 capsule (200 mg) by mouth 2 times daily. 20 capsule 025 2024 Discontinued(R eorder (will not trigger notification to Pharmacy)) Active Problems Problem Noted Date Diagnosed Date Chest wall pain 10/02/2024 Left upper quadrant abdominal pain 10/02/2024 Left lower quadrant abdominal pain 10/02/2024 Joint pain in both hands 09/27/2024 Assessment & Plan (09/27/2024 3:43 PM EST): -Plan: labs for eval of autoimmune cause of symptoms -XR pending -F/up pending results, sooner as needed Healthcare maintenance 09/26/2024 Overview (09/26/2024): Pap: NILM, HPV neg Sep 2020 Assessment & Plan (09/27/2024 3:46 PM EST): -Cardiopulmonary exam WNL -Encouraged healthy lifestyle habits including routine physical exercise and diet rich in fruits and vegetables Vitamin D insufficiency 01/13/2024 Overview (09/27/2024): Lab Results Component Value Date [id number] 25.8 (L) 07/12/2024 [id number] 16.1 (L) 01/06/2024 [id number] 13.4 12/24/2022 Continues with Vit D 1000 units daily Iron deficiency 01/13/2024 Overview (01/13/2024): Hx of iron deficiency with intermittent anemia dating back to at least 2012, possibly earlier H/H improves s/p tx with iron supplements, however trend shows decline when off supplementation. Unclear origin of iron deficiency Assessment & Plan (01/13/2024 5:29 PM EDT): Discussed results and previous trends with pt. Plan for iron supplementation and repeat labs in 3-6 months. Discussed consideration of Heme/Onc referral to further eval possible origin of intermittent LEIDY. ED/urgent care precautions. Hx of gastric sleeve. Obesity 01/16/2014 Assessment & Plan (09/27/2024 3:37 PM EST): Lab Results Component Value Date TSH 1.50 12/24/2022 -Nutrition goal: transition from soda to carbonated water - Semaglutide start: March 2024 - Has lost 32 lbs (12% initial body weight) over the past 6 months. Good therapeutic response - Continues with semaglutide 1.7mg weekly Assessment & Plan (07/12/2024 9:44 AM EDT): Lab Results Component Value Date TSH 1.50 12/24/2022 -Nutrition goal: transition from soda to carbonated water -Exercise goal: improve desire/energy to exercise, will check labs to r/o deficiency - Semaglutide start: March 2024 - Approx 3 months w/ medication, 6.4% weight loss from initial BW. Good therapeutic response. -Shared decision making to increase to semaglutide 1.7mg weekly, will let us know if experiences SE and would like to return to 1mg dose. Med counseling reviewed. Assessment & Plan (04/24/2024 9:00 AM EDT): Lab Results Component Value Date TSH 1.50 12/24/2022 -Done well on first month of medication, has lost 5 lbs. Will plan to increase dose to 0.5mg subcutaneous weekly. Plan to increase to 1 mg subcutaneous weekly in May unless she calls in reporting symptoms. -Encouraged healthy nutrition and physical activity Assessment & Plan (03/15/2024 11:09 AM EDT): -Discussed lifestyle interventions and multitude of factors (genetic, environmental, hormonal) that contribute to weight. Lab Results Component Value Date TSH 1.50 12/24/2022 -Encouraged to continue with healthy nutrition and physical activity -Discussed consideration of pharmacologic therapy, shared decision making to proceed with PA for Wegovy. Reviewed med use, safety, and SE. -Plan to follow up for teaching pending approval of medication Assessment & Plan (01/06/2023 11:11 PM EDT): -Discussed lifestyle interventions and multitude of factors (genetic, environmental, hormonal) that contribute to weight. More important is healthy behavioral habits. Encounters Date Type Department Care Team Description 10/18/2024 1:00 PM EST Office Visit [address] [address] Fely Bey FNP Urinary symptom or sign (Primary Dx); Genital lesion, female; Vaginal itching 10/18/2024 Orders Only [facility] [address] [place] [address] Fely Bey FNP 10/18/2024 Travel 10/18/[address] [address] Columba Valencia [place] Chart Prep 10/13/2024 Refill [facility] [address], [place] [phone] Fely Bey FNP Vitamin B12 deficiency 10/11/2024 Orders Only [facility] [address] [place] [address] Fely Bey SUPERVISORY LIFEGUARD Class 3 severe obesity without serious comorbidity with body mass index (BMI) of 40.0 to 44.9 in adult, unspecified obesity type (CMS/HCC) 10/05/2024 Refill [facility] [address] [place] [id number] Fely Bey FNP Class 3 severe obesity without serious comorbidity with body mass index (BMI) of 40.0 to 44.9 in adult, unspecified obesity type (CMS/HCC) 10/02/2024 5:20 PM EST Office Visit [facility] [address] [place] [phone] Jessica Hathaway MD Left upper quadrant abdominal pain (Primary Dx); Left lower quadrant abdominal pain 10/02/2024 Travel 09/27/2024 9:15 AM EST Office Visit [address] [address] Fely Bey FNP Class 3 severe obesity due to excess calories without serious comorbidity with body mass index (BMI) of 45.0 to 49.9 in adult (CMS/HCC) (Primary Dx); Vitamin D insufficiency; Healthcare maintenance; Joint pain in both hands; Dietary counseling; Exercise counseling 09/27/2024 Travel 09/21/2024 Telephone [facility] [address] [place] [address] Columba Valencia [place] Chart Prep 09/15/2024 Patient Outreach [facility] [address] [place] [address] Fely Bey FNP Pre-visit Planning (SDOH screening was completed on 04/24/2024) 08/10/2024 Refill [facility] [address] [place], [place] [phone] Fely Bey FNP Class 3 severe obesity due to excess calories without serious comorbidity with body mass index (BMI) of 45.0 to 49.9 in adult ([facility]) 07/31/2024 Orders Only [facility] [address] [place] [address] Fely Bey FNP 07/31/2024 Orders Only [facility] [address] [place] [address] Fely Bey FNP 07/20/2024 Telephone [facility] [address] [place] [address] Fely Bey FNP November 07/20/2024 Travel from Last 3 Months Immunizations Name Administration Dates Next Due HPV, Quadrivalent 09/23/2009,07/18/2008,06/28/20 07 Hep A, Adult 05/04/2019,04/07/2017 Hep B, Adolescent or Pediatric 04/20/1997,1996,06/21/1995 Hep B, adult 04/07/2017 Hib (HbOC) 07/21/1993,199 3,1992,06/20 IPV 09/20/1996,199 4,1992,06/20 Influenza Injectable Quadriv alant Preservative Free IIV4 MDCK 06/28/2018 Influenza injectable quadriv alent preservative free 10/24/2013 Influenza, IIV3, injectable 08/14/2014, 0 Influenza, Split (incl. becca fied surface antigen) 10/31/2012 MMR 09/20/1996,07/21/1993 Meningococcal MCV4P ACYW-135 05/04/2019,06/28/20 07 TD (adult), 2 Lf tetanus tox oid, preservative free, adsorbed 07/08/2004 Tdap 10/31/2012 Family History Medical History Relation Name Comments Hyperlipidemia Father Cancer Maternal Grandfather Anxiety disorder Mother Depression Mother white coat hypertension Mother HIV Paternal Grandmother Relation Name Status Comments Father Maternal Grandfather Mother Paternal Grandmother Social History Tobacco Use Types Packs/Day Years Used Date Smoking Tobacco: Unknown Smokeless Tobacco: Never Tobacco Cessation:Counseling Given: Not Answered Alcohol Use Standard Drinks/Week Comments Yes 0 (1 standard drink = 0.6 oz pur e alcohol) Sometimes Depression Answer Date Recorded Patient Health Questionnaire-9 Score 5 09/27/2024 Patient Health Questionnaire-9 Score 5 09/27/2024 Last PHQ-9: Questionnaire Data Not on file 0 09/27/2024 Housing Stability Answer Date Recorded What is your housing situation today? I have felicia cyr 03/15/[address] you li ve. Do you have problems with any of the following? None of the above 03/15/2024 Food Insecurity Answer Date Recorded Within the past 12 months, y ou worried that your food would run out before you got money to buy more: Never True 04/24/2024 Within the past 12 months,th e food you bought just didn't last and you didn't have enough money to get more: Never True 01/2024 Transportation Answer Date Recorded In the past 12 months, has l ack of transportation kept you from medical appts, meetings, work or from getting things needed for daily living? No 03/15/2024 Utilities Answer Date Recorded In the past 12 months, has t he electric, gas, oil or water company threatened to shut off services in your home? No 03/15/2024 Depression Answer Date Recorded Patient Health Questionnaire-2 Score 2 09/27/2024 Internet Access Answer Date Recorded Internet Access Q1 Yes 05/20/2024 Internet Access Q2 Not on file 05/20/2024 Comments Unknown Sex and Gender Information Value Date Recorded Sex Assigned at Female 07/20/2022 10:15 AM EDT Legal Sex Female 10:15 AM EDT Gender Identity Female 07/20/2022 10:15 AM EDT Sexual Orientation Choose not to disclose 2021 10:15 AM EDT Last Filed Vital Signs Vital Sign Reading Time Taken Comments Blood Pressure 112/76 10/18/2024 1:12 PM EST Pulse 80 10/18/2024 1:12 PM EST Temperature 36 ??C (96.8 ??F) 10/18/2024 1:12 PM EST Respiratory Rate 17 10/18/2024 1:12 PM EST Oxygen Saturation 97% 10/18/2024 1:12 PM EST Inhaled Oxygen Concentration - - Weight 104 kg (229 lb 8 oz) 10/18/2024 1:[address] Height 161 cm (5' 3.39 ) 10/18/2024 1:12 PM EST Body Mass Index 40.16 10/18/2024 1:12 PM EST Plan of Treatment Health Maintenance Due Date Last Done Comments Pap Smear 09/24/2023 09/24/2020 DTaP/Tdap/Td Vaccines (6 - Td or Tdap) 03/15/2025 10/31/2012, 07/08/2004, 09/20/1996, Additional history exists Postponed from 10/31/2022 (Patient Refused) Influenza Vaccine (#1) 2025 8, 08/14/2014, 10/24/2013, Additional history exists Postponed from 05/21/2024 (Patient Refused) SDOH Screening 04/24/2025 04/24/2024 COVID-19 Vaccine ( season) 2025 04/02/2022, 03/12/2022 Postponed from 05/21/2024 (Patient Refused) Cervical Cancer Screening 09/24/2025 HPV/Cotest 09/24/2025 09/24/2020 Alcohol/Substance Use Screening 09/27/2025 09/27/2024 Depression Screening 09/27/2025 09/27/2024, 09/27/19 Family Planning (PISQ) 09/27/2025 09/27/2024 Tobacco Screening 10/18/2025 10/18/2024 Lipid Panel 08/08/2026 08/08/2021, 07/10/2020 Zoster Vaccines (1 of 2) 2042 RSV Patients and Patients Aged 60 years or older (1 - 1-dose 75+ series) 2067 HIB Vaccines Completed 07/21/1993, 0 09/1992, 1992, Additional history exists IPV Vaccines Completed 09/20/1996, 09/1993, 1992, Additional history exists HPV Vaccines Completed 09/23/2009, 06/21, 06/28/2007 Hepatitis B Vaccines Completed 04/07/2017, 04/20/1997, 09/20/1996, Additional history exists Hepatitis A Vaccines Aged Out 05/04/2019, 04/07/20 17 No longer eligible based on patient's age to complete this topic Meningococcal Vaccine Aged Out 05/04/2019, 007 No longer eligible based on patient's age to complete this topic Hepatitis C Screening Completed 06/01/2022 , 08/08/2021, 07/10/2020 HIV Screening Completed 07/20/2022, 05/21, 08/08/2021 Pneumococcal Vaccine: Pediatrics (0 to 5 Years) and At-Risk Patients (6 to 49) Years) Aged Out No longer eligible based on patient's age to complete this topic RSV under 20 months Aged Out No longe r eligible based on patient's age to complete this topic Rotavirus Vaccines Aged Out No longer eligible based on patient's age to complete this topic Procedures Procedure Name Priority Date/Time Associated Diagnosis Comments POCT URINALYSIS DIPSTICK Routine 10/18/2024 2:32 PM EST Urinary symptom or sign POCT , URINE Routine 10/18/2024 2:32 PM EST Urinary symptom or sign CANCELLED URINE Routine 10/18/2024 1:59 PM EST HIV 1/2 ANTIGEN/ANTIBODY, FOURTH GENERATION W/RFL Routine 07/20/2022 11:52 AM EDT ZZZ HISTORICAL HEPATITIS C AB W/REFL TO HCV RNA, QN, PCR Routine 06/01/2022 10:49 AM EDT LIPID PANEL, STANDARD Routine 08/08/2021 9:18 AM EST HPV MRNA E6/E7 Routine 09/24/2020 12:00 AM EST THINPREP IMAGING SYSTEM PAP Routine 09/24/2020 12:00 AM EST from Last 3 Months or Most Recently Relevant to Health Maintenance Results * POCT Urine (10/18/2024 2:32 PM EST) Preg Test, Ur Negative Negative, Indeterminate, None Detected, Invalid, Specimen unsatisfactory for evaluation, Weakly Positive QC Media Lot # [id number] Lot# Expiration Date , Urine 10/18/2024 2:32 PM EST Fely [employer] [facility] POINT OF CARE TEST ENTER/EDIT ORDERABLES Edited Result - Final * POCT Urinalysis (10/18/2024 2:32 PM EST) Color, UA Light Yellow Clarity, UA Cloudy Glucose, UA Negative Bilirubin, UA Trace Comment:small Ketones, UA Negative Spec Grav, UA 1.030 Blood, UA Negative Negative, None Detected pH, UA 6.0 Protein, UA Trace Comment:30mg/dL Urobilinogen, UA 0.2 Leukocytes, UA Negative Negative, Rare, Trace Nitrite, UA Negative Negative, None Detected Appearance, UA cloudy QC Media Lot # [id number] Lot# Expiration Date ,025 Urine 10/18/2024 2:32 PM EST Flomio [facility] POINT OF CARE TEST ENTER/EDIT ORDERABLES Final Result * Cancelled Urine (10/18/2024 1:59 PM EST) Cancelled Urine SEE NOTE [facility] Comment:THE FOLLOWING TESTS WERE CANCELLED: UACC W MICROSREASON: UNLABELED SPECIMAN RECIEVED 10/18/2024 1:59 PM EST 10/18/2024 4:51 PM EST Fely Bey SUPERVISORY LIFEGUARD HISTORICAL/NON ORDERABLE LABS Final Result [facility] [address] [place] [address] [phone] * HIV 1/2 ANTIGEN/ANTIBODY,FOURTH GENERATION W/RFL (07/20/2022 11:52 AM EDT) HIV-1/2 ANTIGEN AND ANTIBODIES, 4TH GENERATION W/ REFLEX NON-REACT MARYLU NON-REACT [facility] Comment: HIV-1 antigen and HIV-1/HIV-2 antibodies were not detected. There is no laboratory evidence of HIV infection. ?? PLEASE NOTE: This information has been disclosed to you from records whose confidentiality may be protected by state law. ??If your state requires such protection, then the state law prohibits you from making any further disclosure of the information without the specific written consent of the person to whom it pertains, or as otherwise permitted by law. A general authorization for the release of medical or other information is NOT sufficient for this purpose. ? For additional information please refer to http://education.siXis/faq/TWT564 (This link is being provided for informational/ educational purposes only.) ? The performance of this assay has not been clinically validated in patients less than 2 years old. ?? 07/20/2022 11:5 2 AM EDT Yaritza Aranda CNM LAB BLOOD ORDERABLES Courtney l Result [facility]GACY LAB[facility] * HEPATITIS C AB W/REFL TO HCV RNA, QN, PCR (06/01/2022 10:49 AM EDT) HEPATITIS C ANTIBODY NON-REACT MARYLU NON-REACT MARYLU [facility] INDEX 0.08 <1.00 [facility] Comment: ?? HCV antibody was non-reactive. There is no laboratory ?? evidence of HCV infection. ?? In most cases, no further action is required. However, if recent HCV exposure is suspected, a test for HCV RNA (test code 93573) is suggested. ?? For additional information please refer to http://[employer].siXis/faq/QJW74g4 (This link is being provided for informational/ educational purposes only.) ?? 06/01/2022 10:4 9 AM EDT us Milla Castillo NP HISTORICAL/NON ORDERABLE LABS Final Result [facility] [address] * (ABNORMAL) LIPID PANEL, STANDARD (08/08/2021 9:18 AM EST) Chol/HDLC Ratio 3.7 <5.0 (calc) [facility] Cholesterol, Total 159 <200 mg/dL [facility] HDL Cholesterol 43(L) > OR = 50 mg/dL [facility] LDL Cholesterol 99 mg/dL (calc) [facility] Comment: Reference range: <100 ?? Desirable range <100 mg/dL for primary prevention; ?? <70 mg/dL for patients with CHD or diabetic patients ?? with > or = 2 CHD risk factors. ?? LDL-C is now calculated using the Negro ?? calculation, which is a validated novel method providing ?? better accuracy than the Friedewald equation in the ?? estimation of LDL-C. ?? Cristobal SEAMAN et al. DIONNE. 2013;310(19): 8172-4898 ?? (http://education.Zumbox/faq/OVO472) Non-HDL Cholesterol 116 <130 mg/dL (calc) [facility] Comment: For patients with diabetes plus 1 major ASCVD risk ?? factor, treating to a non-HDL-C goal of <100 mg/dL ?? (LDL-C of <70 mg/dL) is considered a therapeutic ?? option. Triglycerides 78 <150 mg/dL [facility] 08/08/2021 9:18 AM EST us Milla Davisthom BASIC SCIENCES PROFESSOR LAB BLOOD ORDERABLES Final Res ult Performing Organization Address [facility] de Phone Number [facility] [address] * THINPREP TIS PAP (09/24/2020 12:00 AM EST) Clinical Information: None given [facility] COMMENT SEE COMMENT [facility] Comment: EXPLANATORY NOTE: ? The Pap is a screening test for cervical cancer. It is ?? not a diagnostic test and is subject to false negative ?? and false positive results. It is most reliable when a ?? satisfactory sample, regularly obtained, is submitted ?? with relevant clinical findings and history, and when ?? the Pap result is evaluated along with historic and ?? current clinical information. ?? COMMENT: This Pap test has been evaluated with computer assisted technology. [facility] Clear Coat Sprayer : SEE COMMENT [facility] Comment: SXA, CT(ASCP) CT screening location: [address] ??[id number] Interpretation/R esult: Negative for intraepithelial lesion or malignancy. [facility] LMP: NONE GIVEN [facility] Prev. BX: NONE GIVEN [facility] Prev. PAP: NONE GIVEN [facility] SOURCE: None given [facility] Statement Of Adequacy: SEE COMMENT [facility] Comment: Satisfactory for evaluation. Endocervical/transformation zone component absent. Age and/or menstrual status not provided 09/24/2020 us Historical Provider MD LAB PATHOLOGY ORDERABLES Final Result Performing Organization Address [facility] de Phone Number [facility] [address] [place] [address], * HPV mRNA E6/E7 (09/24/2020 12:00 AM EST) HPV nRNA E6/E7 Not Detected Not Detected [facility] Comment: This test was performed using the APTIMA HPV Assay ([employer] This assay detects E6/E7 viral messenger RNA (mRNA) from 14 high-risk HPV types (16,18,31,33,35,39,45,51,52,56,58,59,66,68). ?? The analytical performance characteristics of this assay have been determined by [employer]. The modifications have not been cleared or approved by the FDA. This assay has been validated pursuant to the CLIA regulations and is used for clinical purposes. 09/24/2020 us Historical Provider LAB BLOOD ORDERABLES Courtney reed Result [facility] [address] from Last 3 Months or Most Recently Relevant to Health Maintenance Insurance [facility] Care Teams Director Of Business Development Relationship Specialty Start Date End Date Fely Bey FNP [address] [place] [phone] PCP - General Family Medicine 05/20/22
--- OUTSIDE RECORDS SUMMARY | 2024-10-18 17:54 | XMS_ITS | Encounter Summary ---
Author Organization [employer] Address [address] [facility] 7 [place] [address] Care Team Providers Care Soft Metals Engraver Hand Name Role Phone Fely Bey Primary Care Provider [phone] Encounter Details Date Type Department Care Team ([facility] st Contact Info) Description 07/31/2024 Orders Only [facility] [address], [place] [phone] Fely Bey FNP [address] [place], [place] [phone] Social History Tobacco Use Types Packs/Day Years Used Date Smoking Tobacco: Every Day Cigarettes Smokeless Tobacco: Never Alcohol Use Standard Drinks/Week Comments Yes 0 (1 standard drink = 0.6 oz pur e alcohol) Sometimes Depression Answer Date Recorded Patient Health Questionnaire-9 Score 12 03/15/2024 Patient Health Questionnaire-9 Score 12 03/15/2024 Last PHQ-9: Questionnaire Data Not on file 0 03/15/2024 Housing Stability Answer Date Recorded What is [...] Answer Date Recorded Patient Health Questionnaire-2 Score 4 03/15/2024 Internet Access Answer Date Recorded Internet Access Q1 Yes 05/20/2024 Internet Access Q2 Not on file 05/20/2024 Comments Unknown Sex and Gender Information Value Date Recorded Sex Assigned at Female 07/20/2022 10:15 AM EDT Legal Sex Female 10:15 AM EDT Gender Identity Female 07/20/2022 10:15 AM EDT Sexual Orientation Choose not to disclose 2021 10:15 AM EDT documented as of this encounter Plan of Treatment Not on file documented as of this encounter Visit Diagnoses Not on filedocumented in this encounter Additional Health Concerns Assessment Noted Time PHQ-9 Depression Total Score: 12 024 10:15 AM EDT documented as of this encounter Care Teams Soft Metals Engraver Hand Relationship Specialty Start Date End Date Fely Bey FNP [address] [place] [phone] PCP - General Family Medicine 05/20/22 documented as of this encounter
--- OUTSIDE RECORDS SUMMARY | 2024-10-18 17:54 | XMS_ITS | Encounter Summary ---
Author Organization [employer] Address 75 [facility] 7 [place] [address] Care Team Providers Care Director Of Managed Services Name Role Phone Fely Bey Primary Care Provider [phone] Reason for Visit * Reason Comments Med Refill Encounter Details Date Type Department Care Team ([facility] st Contact Info) Description 10/13/2024 Refill [facility] CHC MED & PEDS [address] [place], [place] [phone] Feyl Bey FNP [address] [place], [place] [phone] Vitamin B12 deficiency Social History Tobacco Use Types Packs/Day Years Used Date Smoking Tobacco: Unknown Smokeless Tobacco: Never Alcohol Use Standard Drinks/Week [...] AM EDT documented as of this encounter Miscellaneous Notes * Telephone Encounter - Genesis Madison LPN - 10/17/2024 8:33 AM EST Good morning Fely , I received a message from you regarding PA ,However the message doesn't statewhich medication? Pa generated for MyTinks sent to [facility] , Pending . documented in this encounter Plan of Treatment Not on file documented as of this encounter Visit Diagnoses Diagnosis Vitamin B12 deficiency Other B-complex deficiencies documented in this encounter Additional Health Concerns Assessment Noted Time PHQ-9 Depression Total Score: 5 09/27/19 25 3:46 PM EST documented as of this encounter Care Teams Director Of Managed Services Relationship Specialty Start Date End Date Fely Bey FNP [address] [place] [address] PCP - General Family Medicine 05/20/22 documented as of this encounter
--- OUTSIDE RECORDS SUMMARY | 2024-10-18 17:54 | XMS_ITS | Encounter Summary ---
Author Organization [employer] Address 75 [facility] 7 [place] [address] Care Team Providers Care Pierce And Shave Press Operator Name Role Phone Fely Bey Primary Care Provider [phone] Reason for Visit * Reason Comments Establish Care Encounter Details Date Type Department Care Team ([facility] st Contact Info) Description 09/27/2024 9:15 AM EST Office Visit [facility] MEDICINE [address] [place] [address] Fely Bey FNP 505 [place], [place] [phone] Class 3 severe obesity due to excess calories without serious comorbidity with body mass index (BMI) of 45.0 to 49.9 in adult (CMS/HCC) (Primary Dx); Vitamin D insufficiency; Healthcare maintenance; Joint pain in both hands; Dietary counseling; Exercise counseling Social History Tobacco Use Types Packs/Day Years [...] AM EDT documented as of this encounter Last Filed Vital Signs Vital Sign Reading Time Taken Comments Blood Pressure 113/70 09/27/2024 9:16 AM EST Pulse 79 09/27/2024 9:16 AM EST Temperature 36.1 ??C (97 ??F) 09/27/2024 9:16 AM EST Respiratory Rate 20 09/27/2024 9:16 AM EST Oxygen Saturation 98% 09/27/2024 9:16 AM EST Inhaled Oxygen Concentration - - Weight 105 kg (231 lb 12.8 oz) 09/27/2024 9:16 A M EST Height 161 cm (5' 3.39 ) 09/27/2024 9:16 AM EST Body Mass Index 40.56 09/27/2024 9:16 AM EST documented in this encounter Progress Notes * Fely Bey, IZZY - 09/27/2024 9:15 AM EST Subjective: Joyce Adam is a 34 y.o. female who presents to the office for a transfer patient visit. Interim history: [facility] PCP visit: 07/12/24 Labs demonstrated Vit D insufficiency and low Vit B12. Started on supplementation. Hx of gastric sleeve. Weight management: continues with semaglutide 1.7mg subcutaneous weekly Current concerns: Joint pains in bilateral hands and fingers associated with redness, swelling, and tenderness. Currently asymptomatic. Worsens in the winter/cold. XR of wrists ordered February 2024, pending. Interested in eval for RF. 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 Occasional marijuana smoking and social alcohol use. No cigarette smoking, opioid use, or other substance use. Sexual activity: not currently. Hx AMAB partners. Using male condoms PRN. May consider BTL in future. Mental health: good overall, denies SI/HI/thoughts of self harm No Known Allergies Review of Systems Constitutional: Negative for chills and fever. HENT: Negative for congestion. Respiratory: Negative for cough and wheezing. Cardiovascular: Negative for chest pain and palpitations. Gastrointestinal: Negative for diarrhea, nausea and vomiting. Musculoskeletal: Positive for arthralgias and joint swelling. Psychiatric/Behavioral: Negative for suicidal ideas. Visit Vitals BP 113/70 (BP Location: Left arm, Patient Position: Sitting, BP Cuff Size: Large adult) Pulse 79 Temp 97 ??F (36.1 ??C) (Temporal) Resp 20 Ht 5' 3.39 (1.61 m) Wt 231 lb 12.8 oz (105 kg) SpO2 98% BMI 40.56 kg/m?? Smoking Status Unknown BSA 2.17 m?? Physical Exam Constitutional: Appearance: Normal appearance. HENT: Head: Atraumatic. Right Ear: External ear normal. Left Ear: External ear normal. Cardiovascular: Rate and Rhythm: Normal rate and regular rhythm. Pulmonary: Effort: Pulmonary effort is normal. Breath sounds: Normal breath sounds. Neurological: Mental Status: She is alert and oriented to person, place, and time. Psychiatric: Mood and Affect: Mood normal. Behavior: Behavior normal. Problem List Items Addressed This Visit Musculoskeletal Joint pain in both hands Current Assessment & Plan -Plan: labs for eval of autoimmune cause of symptoms -XR pending -F/up pending results, sooner as needed Relevant Orders JOSE Screen,IFA, with Reflex to Titer and Pattern Rheumatoid Factor Sed Rate by Modified Westergren C-reactive Protein Endocrine/Metabolic Obesity - Primary Current Assessment & Plan Lab Results Component Value Date TSH 1.50 12/24/2022 -Nutrition goal: transition from soda to carbonated water - Semaglutide start: March 2024 - Has lost 32 lbs (12% initial body weight) over the past 6 months. Good therapeutic response - Continues with semaglutide 1.7mg weekly Vitamin D insufficiency Overview Lab Results Component Value Date [id number] 25.8 (L) 07/12/2024 [id number] 16.1 (L) 01/06/2024 [id number] 13.4 12/24/2022 Continues with Vit D 1000 units daily Relevant Orders Vitamin D, 25-Hydroxy, Total, Immunoassay Other Healthcare maintenance Overview Pap: NILM, HPV neg Sep 2020 Current Assessment & Plan -Cardiopulmonary exam WNL -Encouraged healthy lifestyle habits including routine physical exercise and diet rich in fruits and vegetables Relevant Orders Vitamin B12/Folate, Serum Panel Other Visit Diagnoses Dietary counseling Exercise counseling Follow up: 3 months, sooner as needed Current Outpatient Medications Medication Sig Dispense Refill cholecalciferol (Vitamin D3) 25 MCG (1000 UT) tablet Take 1 tablet (25 mcg) by mouth Once daily. 90tablet 3 cyanocobalamin (Vitamin B-12) 1000 MCG tablet Take 1 tablet (1,000 mcg) by mouth Once per day. 90 tablet 1 D-MANNOSE PO Take by mouth. Over the counter supplement: O-POSITIVE. Contains Vit C, D-mannose, andCranberry extract Chelsea 30 MG tablet TAKE 1 TABLET SOON POSSIBLE WITHIN 5 DAYS AFTER UNPROTECTED SEX OR IF YOU HAD A CONTROL FAILURE. MAY BE TAKEN WITH OR WITHOUT FOOD. 1 tablet 3 Semaglutide-Weight Management (Wegovy) 1.7 MG/0.75ML solution auto-injector Inject 1.7 mg subcutaneously weekly 3 mL 3 No current facility-administered medications for this visit. Immunization History Administered Date(s) Administered HPV, Quadrivalent 06/28/2007, 07/18/2008, 09/23/2009 Hep A, Adult 04/07/2017, 05/04/2019 Hep B, Adolescent or Pediatric 06/21/1995, 09/20/1996, 04/20/1997 Hep B, adult 04/07/2017 Hib (HbOC) 1992, 1992, 1992, 07/21/1993 IPV 1992, 1992, 12/19/1993, 09/20/1996 Influenza Injectable Quadrivalant Preservative Free IIV4 MDCK 06/28/2018 Influenza injectable quadrivalent preservative free 10/24/2013 Influenza, IIV3, injectable 09/23/2009, 08/14/2014 Influenza, Split (incl. purified surface antigen) 10/31/2012 MMR 07/21/1993, 09/20/1996 Meningococcal MCV4P ACYW-135 06/28/2007, 05/04/2019 Pfizer Covid-19 Vaccine 12+ alfredito-sucrose (Macias Cap) 03/12/2022, 04/02/2022 TD (adult), 2 Lf tetanus toxoid, preservative free, adsorbed 07/08/2004 Tdap 10/31/2012 documented in this encounter Miscellaneous Notes * Assessment & Plan Note - IZZY Samaniego - 09/27/2024 3:45 PM ESTAssociated Problem(s): Healthcare maintenance -Cardiopulmonary exam WNL -Encouraged healthy lifestyle habits including routine physical exercise and diet rich in fruits and vegetables * Assessment & Plan Note - IZZY Samaniego - 09/27/2024 3:43 PM ESTAssociated Problem(s): Joint pain in both hands -Plan: labs for eval of autoimmune cause of symptoms -XR pending -F/up pending results, sooner as needed * Assessment & Plan Note - IZZY Smaaniego - 09/26/2024 8:54 PM ESTAssociated Problem(s): Obesity Lab Results Component Value Date TSH 1.50 12/24/2022 -Nutrition goal: transition from soda to carbonated water - Semaglutide start: March 2024 - Has lost 32 lbs (12% initial body weight) over the past 6 months. Good therapeutic response - Continues with semaglutide 1.7mg weekly documented in this encounter Plan of Treatment Scheduled Orders Name Type Priority Associated Diagnoses Orde r Schedule Vitamin D, 25-Hydroxy, Total, Immunoassay Lab Routine Vitamin D insufficiency Expected: 09/27/2024 (Approximate), Expires: 09/27/2025 Vitamin B12/Folate, Serum Panel Lab Routine Healthcare maintenance Expected: 09/27/2024, Expires: 09/27/2025 JOSE Screen,IFA, with Reflex to Titer and Pattern Lab Routine Joint pain in both hands Expected: 09/27/2024 (Approximate), Expires: 09/27/2025 Rheumatoid Factor Lab Routine Joint pain in both hands Expected: 09/27/2024, Expires: 09/27/2025 Sed Rate by Modified Westergren Lab Routine Joint pain in both hands Expected: 09/27/2024, Expires: 09/27/2025 C-reactive Protein Lab Routine Joint pain in both hands Expected: 09/27/2024 (Approximate), Expires: 09/27/2025 documented as of this encounter Visit Diagnoses Diagnosis Class 3 severe obesity due to excess calories without serious comorbidity with body mass index (BMI) of 45.0 to 49.9 in adult ([facility])- Primary Vitamin D insufficiency Healthcare maintenance Joint pain in both hands Dietary counseling Dietary surveillance and counseling Exercise counseling documented in this encounter Additional Health Concerns Assessment Noted Time PHQ-9 Depression Total Score: 5 09/27/19 25 3:46 PM EST documented as of this encounter Care Teams Pierce And Shave Press Operator Relationship Specialty Start Date End Date Fely Bey FNP [address] [place] [address] PCP - General Family Medicine 05/20/22 documented as of this encounter
--- OUTSIDE RECORDS SUMMARY | 2024-10-18 17:54 | XMS_ITS | Encounter Summary ---
Author Organization [employer] Address 75 [facility] 7 [place] [address] Care Team Providers Care Service Center Manager Name Role Phone Fely Bey IZZY Primary Care Provider [phone] Reason for Visit * Reason Onset Date Comments Chart Prep 10/18/2024 Encounter Details Date Type Department Care Team ([facility] st Contact Info) Description 10/18/2024 Telephone [facility] MEDICINE [address] [place] [address] Columba Valencia MA Chart Prep Social History Tobacco Use Types Packs/Day Years [...] is your housing situation today? I have feliciahowie cyr 03/15/[address] you [...] encounter Miscellaneous Notes * Telephone Encounter - Columba Wiley MA - 10/18/2024 11:54 AM EST Chart Prep Labs: not done Images: not done Vaccines due: no updates Referrals: '' scheduled 11/08/2024 at 9:30 am.'' Screenings: n/a Overdue care gaps: n/a documented in this encounter Plan of Treatment Not on file documented as of this encounter Visit Diagnoses Not on filedocumented in this encounter Additional Health Concerns Assessment Noted Time PHQ-9 Depression Total Score: 5 09/27/19 25 3:46 PM EST documented as of this encounter Care Teams Service Center Manager Relationship Specialty Start Date End Date Fely Bey FNP [address] [place] [address] PCP - General Family Medicine 05/20/22 documented as of this encounter
--- OUTSIDE RECORDS SUMMARY | 2024-10-18 17:54 | XMS_ITS | Encounter Summary ---
Author Organization [employer] Address 75 [facility] 7 [place] [address] Care Team Providers Care Die Casting Machine Operator Name Role Phone Fely Bey Primary Care Provider [phone] Encounter Details Date Type Department Care Team ([facility] st Contact Info) Description 10/11/2024 Orders Only [facility] CHC MED & PEDS [address] [place], [place] [phone] Fely Bey FNP [address] [place], [place] [phone] Class 3 severe obesity without serious comorbidity with body mass index (BMI) of 40.0 to 44.9 in adult, unspecified obesity type (CMS/HCC) Social History Tobacco Use Types Packs/Day Years [...] Visit Diagnoses Diagnosis Class 3 severe obesity without serious comorbidity with body mass index (BMI) of 40.0 to 44.9 in adult, unspecified obesity type (CMS/HCC) documented in this encounter Additional Health Concerns Assessment Noted Time PHQ-9 Depression Total Score: 5 09/27/19 25 3:46 PM EST documented as of this encounter Care Teams Die Casting Machine Operator Relationship Specialty Start Date End Date Fely Bey FNP [address] [place] [address] PCP - General Family Medicine 05/20/22 documented as of this encounter
--- OUTSIDE RECORDS SUMMARY | 2024-10-18 17:54 | XMS_ITS | Encounter Summary ---
Author Organization [employer] Address 75 [facility] 7 [place] [address] Care Team Providers Care Engraver Letter Name Role Phone Fely Bey Primary Care Provider [phone] Reason for Visit * Reason Comments Med Refill Encounter Details Date Type Department Care Team (Late st Contact Info) Description 04/14/2023 Refill [facility] MEDICINE [address] [place] [address] Fely Bey FNP 505 [place], [place] [phone] Social History Tobacco Use Types Packs/Day Years Used Date Smoking Tobacco: Every Day Cigarettes Smokeless Tobacco: Never Alcohol Use Standard Drinks/Week Comments Yes 0 (1 standard drink = 0.6 oz pur e alcohol) Sometimes Comments Unknown Sex and Gender Information Value [...] Diagnoses Not on filedocumented in this encounter Care Teams Engraver Letter Relationship Specialty Start Date End Date Fely Bey FNP [address] [place] [address] PCP - General Family Medicine 05/20/22 documented as of this encounter
--- OUTSIDE RECORDS SUMMARY | 2024-10-18 17:54 | XMS_ITS | Encounter Summary ---
Author Organization [employer] Address [address] [facility] 7 [place] [address] Care Team Providers Care Director Safety Council Name Role Phone Fely Bey Primary Care Provider [phone] Reason for Visit * Reason Onset Date Comments Med Refill 05/23/2024 Encounter Details Date Type Department Care Team (Late st Contact Info) Description 05/23/2024 Refill [facility] MED & PEDS [address] [place], [place] [phone] Fely Bey FNP [address] [place], [place] [phone] Class 3 severe obesity without serious comorbidity with body mass index (BMI) of 45.0 to 49.9 in adult, unspecified obesity type (CMS/HCC) Social [...] index (BMI) of 45.0 to 49.9 in adult, unspecified obesity type (CMS/HCC) documented in this encounter Additional Health Concerns Assessment Noted Time PHQ-9 Depression Total Score: 12 024 10:15 AM EDT documented as of this encounter Care Teams Director Safety Council Relationship Specialty Start Date End Date Fely Bey FNP [address] [place] [id number] PCP - General Family Medicine 05/20/22 documented as of this encounter
--- OUTSIDE RECORDS SUMMARY | 2024-10-18 17:54 | XMS_ITS | Encounter Summary ---
Author Organization [employer] Address 75 [facility] 7 [place] [address] Care Team Providers Care Rn Transition Name Role Phone Fely Bey Primary Care Provider [phone] Reason for Visit * Reason Onset Date Comments Med Refill 10/05/2024 Encounter Details Date Type Department Care Team (Late st Contact Info) Description 10/05/2024 Refill [facility] MEDICINE [address] [place] [address] Fely Bey FNP [address] [place], [place] [phone] Class 3 severe obesity without serious comorbidity [...] documented as of this encounter Care Teams Rn Transition Relationship Specialty Start Date End Date Fely Bey FNP [address] [place] [id number] PCP - General Family Medicine 05/20/22 documented as of this encounter
--- OUTSIDE RECORDS SUMMARY | 2024-10-18 17:54 | XMS_ITS | Encounter Summary ---
Author Organization [employer] Address 75 [facility] 7t [place] [address] Care Team Providers Care Production Supply Equipment Tender Name Role Phone Fely Bey TRAUMA MANAGER Primary Care Provider [phone] Encounter Details Date Type Department Care Team (Latest Contact Info) Description 10/02/2024 Travel Social History Tobacco Use Types Packs/Day Years [...] documented as of this encounter Care Teams Production Supply Equipment Tender Relationship Specialty Start Date End Date Fely Bey FNP [address] [place] [address] PCP - General Family Medicine 05/20/22 documented as of this encounter
--- OUTSIDE RECORDS SUMMARY | 2024-10-18 17:54 | XMS_ITS | Encounter Summary ---
Author Organization [employer] Address 75 [facility] 7 [place] [address] Care Team Providers Care Cma Name Role Phone Fely Bey Primary Care Provider [phone] Reason for Visit * Reason Comments Med Refill Encounter Details Date Type Department Care Team (Late st Contact Info) Description 07/17/[address] [facility] MEDICINE [address] [place] [address] Fely Bey FNP 505 [place], [place] [phone] Class 3 severe obesity due to excess calories without serious comorbidity with body mass index (BMI) of 45.0 to 49.9 in adult (CMS/HCC) Social History Tobacco Use Types Packs/Day [...] of 45.0 to 49.9 in adult (CMS/HCC) documented in this encounter Additional Health Concerns Assessment Noted Time PHQ-9 Depression Total Score: 12 024 10:15 AM EDT documented as of this encounter Care Teams Cma Relationship Specialty Start Date End Date Fely Bey FNP [address] [place] [phone] PCP - General Family Medicine 05/20/22 documented as of this encounter
--- OUTSIDE RECORDS SUMMARY | 2024-10-18 17:54 | XMS_ITS | Encounter Summary ---
Author Organization [employer] Address 75 [facility] 7 [place] [address] Care Team Providers Care Manager Government Name Role Phone Fely Bey Primary Care Provider [phone] Reason for Visit * Reason Onset Date Comments ER Follow-up 08/10/2023 Encounter Details Date Type Department Care Team (Late st Contact Info) Description 08/10/2023 Telephone [facility] MEDICINE [address] [place] [address] Fely Bey FNP [address] [place], [place] [phone] ER Follow-up Social History Tobacco Use Types Packs/Day Years Used Date Smoking Tobacco: Every Day Cigarettes Smokeless Tobacco: Never Alcohol Use Standard Drinks/Week Comments Yes 0 (1 standard drink = 0.6 oz pur e alcohol) Sometimes Housing Stability Answer Date Recorded What is your housing situation today? I have felicia cyr 07/11/[address] you li ve. Do you have problems with any of the following? None of the above 07/11/2023 Food Insecurity Answer Date Recorded Within the past 12 months, y ou worried that your food would run out before you got money to buy more: Never True 07/11/2023 Within the past 12 months,th e food you bought just didn't last and you didn't have enough money to get more: Never True Transportation Answer Date Recorded In the past 12 months, has l ack of transportation kept you from medical appts, meetings, work or from getting things needed for daily living? No 07/11/2023 Utilities Answer Date Recorded In the past 12 months, has t he electric, gas, oil or water company threatened to shut off services in your home? No 07/11/2023 Comments Unknown Sex and Gender Information Value Date Recorded Sex Assigned at Female 07/20/2022 10:15 AM EDT Legal Sex Female 10:15 AM EDT Gender Identity Female 07/20/2022 10:15 AM EDT Sexual Orientation Choose not to disclose 2021 10:15 AM EDT documented as of this encounter Miscellaneous Notes * Telephone Encounter - Gabrielle Perez RN - 08/10/2023 3:25 PM EST Returned call to pt regarding message below. Pt states going to [facility] ED on 08/08/23 for R sided lower back pain. Pt states pain is worse on movement and pain is severe. Pt states pain runs down her R leg and now has affected the R side of her neck and limits movement d/t pain. UA/XR normal and pt states was given IM toradol at the ed and discharged with flexeril, ketorolac tabs and advised to f/u with PCP. Pt states meds have helped some but pain is still there, just less intense. Pt was discharged with sciatica from ED. Pt states this pain started after the of her child in 2013 and has been triggered about 4 times since then prompting her to go to ED. Pt agrees to [facility] appt tomorrow with provider to discuss further POC. ED notes printed and sent to scan. * Telephone Encounter - Christo López - 08/10/2023 8:25 AM EST Tc from patient requesting a ER follow up appt was in the ER at [facility] on 08/08 for lower back pain. If possible to contact patient after 2 pm after work. documented in this encounter Plan of Treatment Not on file documented as of this encounter Visit Diagnoses Not on filedocumented in this encounter Care Teams Manager Government Relationship Specialty Start Date End Date Fely Bey FNP [address] [place] [address] PCP - General Family Medicine 05/20/22 documented as of this encounter
--- OUTSIDE RECORDS SUMMARY | 2024-10-18 17:54 | XMS_ITS | Encounter Summary ---
Author Organization [employer] Address 75 [facility] 7t [place] [address] Care Team Providers Care Senior Accounts Payable Specialist Name Role Phone Fely Bey SECURITY SPECIALIST Primary Care Provider [phone] Encounter Details Date Type Department Care Team (Latest Contact Info) Description 10/18/2024 Travel Social History Tobacco Use Types Packs/Day [...] documented as of this encounter Care Teams Senior Accounts Payable Specialist Relationship Specialty Start Date End Date Fely Bey FNP [address] [place] [phone] PCP - General Family Medicine 05/20/22 documented as of this encounter
--- OUTSIDE RECORDS SUMMARY | 2024-10-18 17:54 | XMS_ITS | Encounter Summary ---
Author Organization [employer] Address [address] [facility] 7t [place] [address] Care Team Providers Care Mud Temperer Name Role Phone Fely Bey Primary Care Provider [phone] Encounter Details Date Type Department Care Team (Late st Contact Info) Description 06/28/2024 Orders Only [facility] MEDICINE [address] [place] [address] Fely Bey FNP [address] [place] [address] Class 3 severe obesity due to excess [...] documented as of this encounter Care Teams Mud Temperer Relationship Specialty Start Date End Date Fely Bey FNP [address] [place] [id number] PCP - General Family Medicine 05/20/22 documented as of this encounter
--- OUTSIDE RECORDS SUMMARY | 2024-10-18 17:54 | XMS_ITS | Encounter Summary ---
Author Organization [employer] Address 75 [facility] 7 [place] [address] Care Team Providers Care Care Companion Name Role Phone Fely Bey Primary Care Provider [phone] Encounter Details Date Type Department Care Team ([facility] st Contact Info) Description 10/18/2024 1:00 PM EST Office Visit [facility] [address] [place] [address] Fely Bey FNP [address] [place], [place] [phone] Urinary symptom or sign (Primary Dx); Genital lesion, female; Vaginal itching Social History Tobacco Use Types Packs/Day Years [...] Mass Index 40.16 10/18/2024 1:12 PM EST documented in this encounter Progress Notes * Fely Bey, [employer] ARCHITECT - 10/18/2024 1:00 PM EST Subjective: Joyce Adam is a 34 y.o. female who presents to the office for a sick visit. HPI: Genital sore: reports small, red bumps that began in vulvar region approx 1-2 weeks ago. Burn/painful upon palpation. No discharge or pus from area. Sexually active with one male partner. Not always consistent with condoms. Also experiencing urinary symptoms including burning when urine touches skin. Intermittent urine malodor. (+) vaginal itching. Denies discharge or dyspareunia. 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 Family: two children Substance use: (+) Hookah, decreased to once weekly. Occasional marijuana smoking and social alcohol use. No cigarette smoking, opioid use, or other substance use. Sexual activity: male partner. Using male condoms PRN. May consider BTL in future. Mental health: good overall, denies SI/HI/thoughts of self harm No Known Allergies Review of Systems Constitutional: Negative for chills and fever. Cardiovascular: Negative for chest pain and palpitations. Genitourinary: Positive for dysuria and genital sores. Negative for flank pain, urgency, vaginal bleeding, vaginal discharge and vaginal pain. Visit Vitals BP 112/76 (BP Location: Left arm, Patient Position: Sitting, BP Cuff Size: Large adult) Pulse 80 Temp 96.8 ??F (36 ??C) (Temporal) Resp 17 Ht 5' 3.39 (1.61 m) Wt 229 lb 8 oz (104 kg) LMP 08/22/2024 (Within Days) SpO2 97% BMI 40.16 kg/m?? Smoking Status Unknown BSA 2.16 m?? Physical Exam Field Evidence Technician present: Declined supervising chef. Constitutional: Appearance: Normal appearance. HENT: Head: Atraumatic. Right Ear: External ear normal. Left Ear: External ear normal. Pulmonary: Effort: Pulmonary effort is normal. Genitourinary: Labia: Right: Lesion present. Left: Lesion present. Comments: Four to five 1-2mm erythematous papules on labia majora. Mild discomfort to palpation. (+) white vaginal discharge. Neurological: Mental Status: She is alert and oriented to person, place, and time. Psychiatric: Mood and Affect: Mood normal. Behavior: Behavior normal. Problem List Items Addressed This Visit Visit Diagnoses Urinary symptom or sign - Primary - UA in office concentrated, not consistent with infection - UA w/ reflex UC sent to lab for determination of possible cystitis. Plan to send message with results Relevant Orders POCT Urine (Completed) POCT Urinalysis (Completed) Urinalysis, Complete, with Reflex to Culture Genital lesion, female - Empiric tx for vulvovaginal candidiasis due to clinical presentation - Testing for BV/yeast/trich/CT/NG completed - HSV culture of lesions completed Relevant Orders Chlamydia/N. Gonorrhoeae RNA, TMA, Urogenitial Bacterial Vaginosis Herpes Simplex Virus Culture with Reflex Typing Vaginal itching Relevant Medications fluconazole (Diflucan) 150 MG tablet Follow up: per recall, sooner as needed Current Outpatient Medications Medication Sig Dispense Refill celecoxib (CeleBREX) 200 MG capsule Take 1 capsule (200 mg) by mouth 2 times daily. 20 capsule 0 cholecalciferol (Vitamin D3) 25 MCG (1000 UT) [...] WITH OR WITHOUT FOOD. 1 tablet 3 fluconazole (Diflucan) 150 MG tablet Take 1 tablet (150 mg) by mouth 1 (one) time for 1 dose. Repeat in 72 hours if symptoms persist. 2 tablet 0 Semaglutide-Weight Management (Wegovy) 1.7 MG/0.75ML solution auto-injector [...] 07/08/2004 Tdap 10/31/2012 documented in this encounter Plan of Treatment Scheduled Orders Name Type Priority Associated Diagnoses Orde r Schedule Chlamydia/N. Gonorrhoeae RNA, TMA, Urogenitial Microbiology Routine Genital lesion, female Ordered: 10/18/2024 Bacterial Vaginosis Microbiology Routine Genital lesion, female Ordered: 10/18/2024 Herpes Simplex Virus Culture with Reflex Typing Microbiology Routine Genital lesion, female Ordered: 10/18/2024 Urinalysis, Complete, with Reflex to Culture Lab Routine Urinary symptom or sign Expected: 10/18/2024 (Approximate), Expires: 10/18/2025 documented as of this encounter Procedures Procedure Name Priority Date/Time Associated Diagnosis Comments POCT , URINE Routine 10/18/2024 2:32 PM EST Urinary symptom or sign POCT URINALYSIS DIPSTICK Routine 10/18/2024 2:32 PM EST Urinary symptom or sign documented in this encounter Results * POCT Urinalysis (10/18/2024 2:32 PM EST) [...] Media Lot # [id number] Lot# Expiration Date [id number] Urine 10/18/2024 2:32 PM EST us Fely MAGANA POINT OF CARE TEST ENTER/EDIT ORDERABLES Final Result * POCT Urine (10/18/2024 2:32 PM EST) Preg Test, Ur Negative Negative, Indeterminate, None Detected, Invalid, Specimen unsatisfactory for evaluation, Weakly Positive QC Media Lot # [id number] Lot# Expiration Date [id number] Urine 10/18/2024 2:32 PM EST us Fely MAGANA POINT OF CARE TEST ENTER/EDIT ORDERABLES Edited Result - Final documented in this encounter Visit Diagnoses Diagnosis Urinary symptom or sign- Primary Genital lesion, female Other specified disorders of female genital organs Vaginal itching Pruritus of genital organs documented in this encounter Additional Health Concerns Assessment Noted Time PHQ-9 Depression Total Score: 5 09/27/19 25 3:46 PM EST documented as of this encounter Care Teams Care Companion Relationship Specialty Start Date End Date Fely Bey FNP [address] [place] [address] PCP - General Family Medicine 05/20/22 documented as of this encounter
--- OUTSIDE RECORDS SUMMARY | 2024-10-18 17:54 | XMS_ITS | Encounter Summary ---
Author Organization [employer] Address 75 [facility] 7 [place] [address] Care Team Providers Care Repair Coil Winder Name Role Phone Fely Bey Primary Care Provider [phone] Reason for Visit * Reason Onset Date Comments Med Refill 08/10/2024 Encounter Details Date Type Department Care Team (Late st Contact Info) Description 08/10/2024 Refill [facility] MED[facility]INE [address] [place] [address] Fely Bey FNP [address] [place], [place] [phone] Class 3 severe obesity due to excess [...] documented as of this encounter Care Teams Repair Coil Winder Relationship Specialty Start Date End Date Fely Bey FNP [address] [place] [address] PCP - General Family Medicine 05/20/22 documented as of this encounter
--- OUTSIDE RECORDS SUMMARY | 2024-10-18 17:54 | XMS_ITS | Encounter Summary ---
Author Organization [employer] Address 75 [facility] 7t [place] [address] Care Team Providers Care Violin Maker Hand Name Role Phone Fely Bey LUMBER CHAIN OFFBEARER Primary Care Provider [phone] Encounter Details Date Type Department Care Team (Latest Contact Info) Description 09/27/2024 Travel Social History Tobacco Use Types Packs/Day [...] documented as of this encounter Care Teams Violin Maker Hand Relationship Specialty Start Date End Date Fely Bey FNP [address] [place] [address] PCP - General Family Medicine 05/20/22 documented as of this encounter
--- OUTSIDE RECORDS SUMMARY | 2024-10-18 17:54 | XMS_ITS | Encounter Summary ---
Author Organization [employer] Address 75 [facility] 7 [place] [address] Care Team Providers Care Layout Inspector Name Role Phone Fely Bey HVAC MANAGER Primary Care Provider [phone] Reason for Referral * Imaging (Urgent) - Authorized Specialty Diagnoses / Procedures Referred By Contac t Referred To Contact Radiology Diagnoses Left lower quadrant abdominal pain Procedures CT Abdomen Pelvis w/ Contrast Jessica Hathaway MD [address] [place] [address] Phone: tel: fax: [address] Phone: tel: fax: Referral ID Status Reason Start Date Expiration Date V isits Requested Visits Authorized [id number] Authorized 10/02/2024 10/02/2025 1 1 * Imaging (Routine) - Canceled Specialty Diagnoses / Procedures Referred By Contac t Referred To Contact Radiology Diagnoses Left upper quadrant abdominal pain Left lower quadrant abdominal pain Procedures CT Abdomen Pelvis w/ Contrast Jessica Hathaway MD [address] [place] [address] Phone: tel: fax: Referral ID Status Reason Start Date Expiration Date V isits Requested Visits Authorized [id number] Canceled 10/02/2024 10/02/2025 1 1 Reason for Visit * Reason Comments Abdominal Pain Encounter Details Date Type Department Care Team (Late st Contact Info) Description 10/02/2024 5:20 PM EST Office Visit [facility] [place] [address] [place] [address] Jessica Hathaway MD [address] [place] [address] Left upper quadrant abdominal pain (Primary Dx); Left lower quadrant abdominal pain Social History Tobacco Use Types Packs/Day Years [...] your housing situation today? I have felicia klarissa 03/15/[address] you li [...] Sign Reading Time Taken Comments Blood Pressure 118/82 10/02/2024 5:14 PM EST Pulse 76 10/02/2024 5:14 PM EST Temperature 37 ??C (98.6 ??F) 10/02/2024 5:14 PM EST Respiratory Rate 18 10/02/2024 5:14 PM EST Oxygen Saturation 99% 10/02/2024 5:14 PM EST Inhaled Oxygen Concentration - - Weight 104 kg (229 lb 6.4 oz) 10/02/2024 5:14 PM EST Height - - Body Mass Index 40.14 09/27/2024 9:16 AM EST documented in this encounter Progress Notes * Jessica Hathaway MD - 10/02/2024 5:20 PM EST Images from the original note were not included. Subjective Patient ID: Joyce Adam is a 34 y.o. female who presents for Abdominal Pain. Abdominal Pain This is a new problem. The current episode started today. The onset quality is sudden. The problem occurs rarely. The problem has been gradually worsening. The pain is located in the LUQ. The pain isat a severity of 7/10. The quality of the pain is aching, cramping and sharp. The abdominal pain radiates to the back. Associated symptoms include frequency and headaches. Pertinent negatives include no anorexia, arthralgias, belching, constipation, diarrhea, dysuria, fever, flatus, hematochezia, hematuria, melena, myalgias, nausea, vomiting or weight loss. Nothing aggravates the pain. The pain is relieved by Nothing. No urinary symptoms.. No skin rash associated. NO recent trauma, The pain started this morning. No other GI complaint. Review of Systems Constitutional: Negative for fever and weight loss. Gastrointestinal: Positive for abdominal pain. Negative for anorexia, constipation, diarrhea, flatus, hematochezia, melena, nausea and vomiting. Genitourinary: Positive for frequency. Negative for dysuria and hematuria. Musculoskeletal: Negative for arthralgias and myalgias. Neurological: Positive for headaches. Objective Physical Exam Constitutional: General: She is not in acute distress. Appearance: Normal appearance. She is not ill-appearing, toxic-appearing or diaphoretic. Cardiovascular: Rate and Rhythm: Normal rate. Abdominal: Tenderness: There is abdominal tenderness. Comments: NO skin rash Tenderness to palpation of the left lower quadrant. Neurological: Mental Status: She is alert. Assessment/Plan Diagnoses and all orders for this visit: Left upper quadrant abdominal pain - CT Abdomen Pelvis w/ Contrast; Future - Basic Metabolic Panel; Future Left lower quadrant abdominal pain Comments: CT abdo ordered, urgent. ED eval in case of fever, worsening of the pain pending the CT abdo. Suspicion of diverticular disease. I will start treatment if the suspicion is confirmed on the CT abdomen. Orders: - celecoxib (CeleBREX) 200 MG capsule; Take 1 capsule (200 mg) by mouth 2 times daily. - CT Abdomen Pelvis w/ Contrast; Future - Basic Metabolic Panel; Future documented in this encounter Plan of Treatment Scheduled Orders Name Type Priority Associated Diagnoses Orde r Schedule CT Abdomen Pelvis w/ Contrast Imaging Routine Left upper quadrant abdominal pain Left lower quadrant abdominal pain Expected: 10/02/2024, Expires: 10/02/2025 Basic Metabolic Panel Lab Routine Left upper quadrant abdominal pain Left lower quadrant abdominal pain Expected: 10/02/2024 (Approximate), Expires: 10/02/2025 CT Abdomen Pelvis w/ Contrast Imaging Urgent Left lower quadrant abdominal pain Expected: 10/02/2024, Expires: 10/02/2025 documented as of this encounter Visit Diagnoses Diagnosis Left upper quadrant abdominal pain- Primary Left lower quadrant abdominal pain documented in this encounter Additional Health Concerns Assessment Noted Time PHQ-9 Depression Total Score: 5 09/27/19 25 3:46 PM EST documented as of this encounter Care Teams Layout Inspector Relationship Specialty Start Date End Date Fely Bey FNP [address] [place] [address] PCP - General Family Medicine 05/20/22 documented as of this encounter
--- OUTSIDE RECORDS SUMMARY | 2024-10-18 17:54 | XMS_ITS | Encounter Summary ---
Author Organization [employer] [facility] [employer] Address 75 [facility] 7t [place] [address] Care Team Providers Care Multilith Operator Name Role Phone Fely Bey MOTOR BLOCK MECHANIC Primary Care Provider [phone] Reason for Visit * Reason Onset Date Comments Chart Prep 09/21/2024 Encounter Details Date Type Department Care Team ([facility] st Contact Info) Description 09/21/2024 Telephone [facility] [address] [place] [address] Columba Valencia MA Chart Prep Social History [...] Telephone Encounter - Columba Wiley MA - 09/21/2024 11:40 AM EST Chart Prep Labs: done Images: done Vaccines due: yes Referrals: pending appt Screenings: n/a Overdue care gaps: Sbirt, PHQ-9 documented in this encounter Plan of Treatment Not on file documented as of this encounter Visit Diagnoses Not on filedocumented in this encounter Additional Health Concerns Assessment Noted Time PHQ-9 Depression Total Score: 12 024 10:15 AM EDT documented as of this encounter Care Teams Multilith Operator Relationship Specialty Start Date End Date Fely Bey FNP [address] [place] [address] PCP - General Family Medicine 05/20/22 documented as of this encounter
[2024-10-19 10:39] LABS: Bacterial Vaginosis PCR POSITIVE (Negative); Candida Group PCR DETECTED (Not Detect); Candida glab krusei PCR NOT DETECTED (Not Detect); Trichomonas vaginalis PCR NOT DETECTED (Not Detect)
[2024-10-19 11:05] LABS: CT PCR NOT DETECTED (Not Detect.); NG PCR NOT DETECTED (Not Detect.)
== END 2024-10-18 16:46 | disposition home or self-care (01) ==
LOC: HO.HHCLNP 16:45
PROVIDERS: Visit Provider Registered Nurse
DX: N94.9 Unspecified condition associated with female genital organs and menstrual cycle (principal)
CPT/HCPCS: 81515; 87255; 87491; 87591

== ENCOUNTER 2024-11-01 07:52 | Outpatient (REF) | payer OTHER, SELFPAY ==
--- OUTSIDE RECORDS SUMMARY | 2024-11-01 07:55 | XMS_ITS | Encounter Summary ---
Author Organization [employer] Address 75 [facility] 7 [place] [address] Care Team Providers Care Studio Owner Name Role Phone Fely Bey Primary Care Provider [phone] Reason for Visit * Reason Onset Date Comments ER Follow-up 08/10/2023 Encounter Details Date Type Department Care Team (Late st Contact Info) Description 08/10/2023 Telephone [facility] MEDICINE [address] [place] [address] Fely Bey FNP [address] [place], [place] [phone] ER Follow-up Social History Tobacco Use Types [...] regarding message below. Pt states going to [facility] ED on 08/08/23 for R sided lower [...] to go to ED. Pt agrees to [facility] app[place] tomorrow with provider to discuss further POC. ED notes printed and sent to scan. * Telephone Encounter - Christo López - 08/10/2023 8:25 AM EST Tc from patient requesting a ER follow up appt was in the ER at [facility] on 08/08 for lower back pain. If possible to contact patient after 2 pm after work. documented in this encounter Plan of Treatment Not on file documented as of this encounter Visit Diagnoses Not on filedocumented in this encounter Care Teams Studio Owner Relationship Specialty Start Date End Date Fely Bey FNP [address] [place] [address] PCP - General Family Medicine 05/20/22 documented as of this encounter
--- OUTSIDE RECORDS SUMMARY | 2024-11-01 07:55 | XMS_ITS | Encounter Summary ---
Author Organization [employer] Address 75 [facility] 7 [place] [address] Care Team Providers Care Line Director Name Role Phone Fely Bey Primary Care Provider [phone] Reason for Visit * Reason Comments Med Refill Encounter Details Date Type Department Care Team ([facility] Contact Info) Description 10/13/[address] [facility] MED & PEDS [address] [place], [place] [phone] Fely Bey FNP [address] [place], [place] [phone] Vitamin B12 deficiency Social History Tobacco Use [...] message doesn't statewhich medication? Pa generated for bttn sent to [facility] , Pending . documented in this encounter Plan of Treatment Not on file documented as of this encounter Visit Diagnoses Diagnosis Vitamin B12 deficiency Other B-complex deficiencies documented in this encounter Additional Health Concerns Assessment Noted Time PHQ-9 Depression Total Score: 5 09/27/19 25 3:46 PM EST documented as of this encounter Care Teams Line Director Relationship Specialty Start Date End Date Fely Bey FNP [address] [place] [address] PCP - General Family Medicine 05/20/22 documented as of this encounter
--- OUTSIDE RECORDS SUMMARY | 2024-11-01 07:55 | XMS_ITS | Encounter Summary ---
Author Organization [employer] Address 75 [facility] 7 [place] [address] Care Team Providers Care Lead Software Test Engineer Name Role Phone Fely Bey MEDICAL TECHNOLOGIST BLOOD BANK Primary Care Provider [phone] Reason for Referral * Imaging (Urgent) - Authorized Specialty Diagnoses / Procedures Referred By Contac t Referred To Contact Radiology Diagnoses Left lower quadrant abdominal pain Procedures CT Abdomen Pelvis w/ Contrast Jessica Hathaway MD [address] [place] [address] Phone: tel: fax: [address] Phone: tel: fax: Referral ID Status Reason Start Date Expiration Date V isits Requested Visits Authorized [id number] Authorized 10/02/2024 10/02/2025 1 1 * Imaging (Routine) - Canceled Specialty Diagnoses / Procedures Referred By Contac t Referred To Contact Radiology Diagnoses Left upper quadrant abdominal pain Left lower quadrant abdominal pain Procedures CT Abdomen Pelvis w/ Contrast Jessica Hathaway MD [address] [place] [address] Phone: tel: fax: Referral ID Status Reason Start Date Expiration Date V isits Requested Visits Authorized [id number] Canceled 10/02/2024 10/02/2025 1 1 Reason for Visit * Reason Comments Abdominal Pain Encounter Details Date Type Department Care Team (Late st Contact Info) Description 10/02/2024 5:20 PM EST Office Visit [facility] [place] [address] [place] [address] Jessica Hathaway MD [address] [place] [address] Left upper quadrant abdominal pain (Primary Dx); [...] documented as of this encounter Care Teams Lead Software Test Engineer Relationship Specialty Start Date End Date Fely Bey FNP [address] [place] [address] PCP - General Family Medicine 05/20/22 documented as of this encounter
--- OUTSIDE RECORDS SUMMARY | 2024-11-01 07:55 | XMS_ITS | Clinical Summary ---
Author Organization [employer] Address 75 [facility] 7t [place] [address] Care Team Providers Care Domestic Housekeeper Name Role Phone Fely Bey IZZY Primary Care Provider [phone] Allergies No known active allergies Medications cholecalciferol [...] subcutaneously weekly 3 mL 3 025 Active Semaglutide-Weig ht Management (Wegovy) 1.7 MG/0.75ML solution auto-injectorInd ications:Class 3 severe obesity without serious comorbidity with body mass index (BMI) of 40.0 to 44.9 in adult, unspecified obesity type (CMS/HCC) Inject 1.7 mg subcutaneously weekly 3 mL 3 024 2024 Discontinued(R eorder (will not trigger notification to Pharmacy)) fluconazole (Diflucan) 150 MG tabletIndication s:Vaginal itching Take 1 tablet (150 mg) by mouth 1 (one) time for 1 dose. Repeat in 72 hours if symptoms persist. 2 tablet 025 2024 metroNIDAZOLE (Metrogel) 0.75 % vaginal gelIndications:B acterial vaginosis Insert into the vagina at bedtime for 5 days. 70 g 025 2024 Active Problems Problem Noted Date Diagnosed Date [...] Overview (09/27/2024): Lab Results Component Value Date [id number] 25.8 (L) 07/12/2024 [id number] 16.1 (L) 01/06/2024 [id number] 13.4 12/24/2022 Continues with Vit D 1000 [...] Encounters Date Type Department Care Team Description 10/19/[address] [address] Ines Soares RN Lab Orders 10/18/2024 1:00 PM EST Office Visit [address] [address] Fely Bey FNP Urinary symptom or sign (Primary Dx); Genital lesion, female; Vaginal itching 10/18/2024 Orders Only [facility] [address] [place] [address] Fely Bey FNP 10/18/2024 Travel 10/18/[address] [address] Columba Valencia MA Chart Prep 10/13/2024 Refill [facility] [address] [place], [place] [phone] Fely Bey, CHICKEN TENDER Vitamin B12 deficiency 10/11/2024 Orders Only [facility] [address] [place] [address] Fely Bey, CHICKEN TENDER Urinary symptom or sign (Primary Dx); Class 3 severe obesity without serious comorbidity with body mass index (BMI) of 40.0 to 44.9 in adult, unspecified obesity type (CMS/[facility]) 10/05/2024 Refill [facility] MED[facility] [address] [place] [address] Fely Bey FNP Class 3 severe obesity without serious comorbidity with body mass index (BMI) of 40.0 to 44.9 in adult, unspecified obesity type ([facility]) 10/02/2024 5:20 PM EST Office Visit [facility] [address] [place] [address] Jessica Hathaway MD Left upper quadrant abdominal pain (Primary Dx); Left lower quadrant abdominal pain 10/02/2024 Travel 09/27/2024 9:15 AM EST Office Visit [facility] [address] [place] [address] Fely Bey FNP Class 3 severe obesity due to excess calories without serious comorbidity with body mass index (BMI) of 45.0 to 49.9 in adult ([facility]) (Primary Dx); Vitamin D insufficiency; Healthcare maintenance; Joint pain in both hands; Dietary counseling; Exercise counseling 09/27/2024 Travel 09/21/2024 Telephone [facility] [address] [place] [address] Columba Valencia MA Chart Prep 09/15/2024 Patient Outreach [facility] [address] [place], [place] [phone] Fely Bey FNP Pre-visit Planning (SDOH screening was completed on 04/24/2024) 08/10/2024 Refill [facility] MED[facility]INE [address] [place] [address] Fely Bey FNP Class 3 severe obesity due to excess calories without serious comorbidity with body mass index (BMI) of 45.0 to 49.9 in adult ([facility]) from Last 3 Months Immunizations Name Administration Dates Next Due HPV, Quadrivalent 09/23/2009,07/18/2008,06/28/20 07 Hep A, Adult 05/04/2019,04/07/2017 Hep B, Adolescent or Pediatric 04/20/1997,1996,06/21/1995 Hep B, adult 04/07/2017 Hib (HbOC) 07/21/1993, 3,1992,06/20 IPV 09/20/1996, 4,1992,06/20 Influenza Injectable Quadriv alant Preservative Free [...] 09/27/2025 09/27/2024 Depression Screening 09/27/2025 09/27/2024, 09/27/19 25 Family Planning (PISQ) 09/27/2025 09/27/2024 Tobacco Screening 10/18/2025 10/18/2024 Lipid Panel 08/08/2026 08/08/2021, 07/10/2020 Zoster Vaccines (1 of 2) 2042 RSV Patients and Patients Aged 60 years or older (1 - 1-dose 75+ series) 2067 HIB Vaccines Completed 07/21/1993, 09/1992, 1992, Additional history exists IPV Vaccines [...] CANCELLED URINE Routine 10/18/2024 1:59 PM EST HERPES CULTURE WITH REFLEX TYPING Routine 10/18/2024 1:59 PM EST Genital lesion, female BACTERIAL VAGINOSIS PANEL Routine 10/18/2024 1:59 PM EST Genital lesion, female CHLAMYDIA/N. GONORRHOEAE RNA, TMA, UROGENITAL Routine 10/18/2024 1:59 PM EST Genital lesion, female HIV 1/2 ANTIGEN/ANTIBODY, FOURTH GENERATION W/RFL Routine [...] Media Lot # [id number] Lot# Expiration Date [id number] Urine 10/18/2024 2:32 PM EST Fely Bey CHICKEN TENDER POINT OF CARE TEST ENTER/EDIT ORDERABLES Edited [...] Media Lot # [id number] Lot# Expiration Date Urine 10/18/2024 2:32 PM EST Jodangeen CHICKEN TENDER POINT OF CARE TEST ENTER/EDIT ORDERABLES Final Result * Cancelled Urine (10/18/2024 1:59 PM EST) Cancelled Urine SEE NOTE [facility] Comment:THE FOLLOWING TESTS WERE CANCELLED: UACC W MICROSREASON: UNLABELED SPECIMAN RECIEVED 10/18/2024 1:59 PM EST 10/18/2024 4:51 PM EST Jodangeen CHICKEN TENDER HISTORICAL/NON ORDERABLE LABS Final Result [facility] [address] [place] [phone] * (ABNORMAL) Bacterial Vaginosis (10/18/2024 1:59 PM EST) TRICHOMONAS VAGINALIS DETECTION BY PCR NOT DETECTED Not Detect [facility] BACTERIAL VAGINOSIS DETECTION BY PCR POSITIVE(A) Negative [facility] Comment:The BV organism targ ets of the Xpert Xpress MVP test can becommensal in women; Xpert Xpress MVP positive results forbacterial vaginosis should be considered in conjunction withother clinical and patient information to determine thedisease status. Organisms that are not detected by the XpertXpress MVP test have also been reported to be associatedwith BV and aerobic vaginitis.The Xpert Xpress MVP test performance has not been evaluatedin patients under the age of 14. CLARI GROUP DETECTION BY PCR DETECTED(A) Not Detect [facility] Clari glab krusei PCR NOT DETECTED Not Detect [facility] Swab Vaginal structure / Unknown 10/18/2024 1:59 PM EST 10/18/2024 4:51 PM EST [facility] MICROBIOLOGY - GENERAL ORD ERABLES Final Result Performing Organization Address [facility]/ZIP Co de Phone Number [facility] [address] [place] [address] [phone] * (ABNORMAL) Herpes Simplex Virus Culture with Reflex Typing (10/18/2024 1:59 PM EST) Pathologist [facility] HSV Culture/Type SEE NOTE(A) [facility] Comment:HERPES SIMPLEX VIRUS CULTURE W/RFL TO TYPING Micro Number: [id number] Test Status: Final Specimen Source: Not given Specimen Quality: Adequate HSV Culture: Isolated HSV TYPE 2: Not Isolated HSV TYPE 1: IsolatedTHIS TEST WAS PERFORMED AT:[address] [id number] MERATI,MD Swab (Lesion) 10/18/2024 1:5 9 PM EST 10/18/2024 4:51 PM EST Fely [facility] LAB MICROBIOLOGY - GENERAL ORD ERABLES Final Result Performing Organization Address [facility] Co de Phone Number [facility] [address] [place] [phone] * Chlamydia/N. Gonorrhoeae RNA, TMA, Urogenitial (10/18/2024 1:59 PM EST) CT PCR NOT DETECTED Not Detect. [facility] Comment:A not detected test result does not exclude the possibilityof infection because test results can be affected byimproper specimen collection, concurrent antibiotic therapy,or the number of organisms in the specimen which may bebelow the sensitivity of the test. As with many diagnostictests, results from the Xpert CT/NG assay should beinterpreted in conjunction with other laboratory andclinical data available to the clinician.Xpert CT/NG performance has not been evaluated in patientsless than 14 years of age. The assay should not be used forthe evaluationof suspected sexual abuse or for other medico-legalindications. Additional testing is recommended in anycircumstance when false positive or false negative resultscould lead to adverse medical, social or psychologicalconsequences. NG PCR NOT DETECTED Not Detect. [facility] Comment:A not detected test result does not exclude the possibilityof infection because test results can be affected byimproper specimen collection, concurrent antibiotic therapy,or the number of organisms in the specimen which may bebelow the sensitivity of the test. As with many diagnostictests, results from the Xpert CT/NG assay should beinterpreted in conjunction with other laboratory andclinical data available to the clinician.Xpert CT/NG performance has not been evaluated in patientsless than 14 years of age. The assay should not be used forthe evaluationof suspected sexual abuse or for other medico-legalindications. Additional testing is recommended in anycircumstance when false positive or false negative resultscould lead to adverse medical, social or psychologicalconsequences. Swab (Vaginal Swab) 10/18/2024 1:59 PM EST 10/18/2024 4:51 PM EST Narrative [facility] - 10/19/2024 11:06 AM EST Vaginal Fely Bey [facility] LAB MICROBIOLOGY - GENERAL ORD ERABLES Final Result [facility] [address] [place] [phone] * HIV 1/2 ANTIGEN/ANTIBODY,FOURTH GENERATION W/RFL (07/20/2022 11:52 AM EDT) Pathologist [facility] HIV-1/2 ANTIGEN AND ANTIBODIES, 4TH GENERATION W/ [...] ? For additional information please refer to http://EnWave/faq/BMC850 (This link is being provided for informational/ educational purposes only.) ? The performance of this assay has not been clinically validated in patients less than 2 years old. ?? 07/20/2022 11:5 2 AM EDT us Yaritza Aranda CN LAB BLOOD ORDERABLES Courtney l Result Performing Organization Address City/[facility] Co de Phone Number [facility] * HEPATITIS C AB W/REFL TO HCV RNA, QN, PCR (06/01/2022 10:49 AM EDT) Pathologist [facility] HEPATITIS C ANTIBODY NON-REACT MARYLU NON-REACT MARYLU [facility] INDEX 0.08 <1.00 [facility] Comment: ?? HCV antibody was non-reactive. There is no laboratory ?? evidence of HCV infection. ?? In most cases, no further action is required. However, if recent HCV exposure is suspected, a test for HCV RNA (test code 74084) is suggested. ?? For additional information please refer to http://PhyFlex Networks.Broadchoice/faq/HMA82r6 (This link is being provided for informational/ educational purposes only.) ?? 06/01/2022 10:4 9 AM EDT us Milla Castillo NP HISTORICAL/NON ORDERABLE LABS Final Result Performing Organization Address City/[facility]/ZIP Co de Phone Number [facility] [address] * (ABNORMAL) LIPID PANEL, STANDARD (08/08/2021 9:18 AM EST) Chol/HDLC Ratio 3.7 <5.0 (calc) [facility] Cholesterol, Total 159 <200 mg/dL [facility] HDL Cholesterol 43(L) > OR = 50 mg/dL [facility] LDL Cholesterol 99 mg/dL (calc) [facility] Comment: Reference range: <100 ?? [...] ?? Cristobal SEAMAN et al. DIONNE. 2013;310(19): 7009-2645 ?? (http://PhyFlex Networks.BusyFlow/faq/WVK537) Non-HDL Cholesterol 116 <130 mg/dL (calc) [facility] Comment: For patients with diabetes plus 1 major ASCVD risk ?? factor, treating to a non-HDL-C goal of <100 mg/dL ?? (LDL-C of <70 mg/dL) is considered a therapeutic ?? option. Triglycerides 78 <150 mg/dL [facility] 08/08/2021 9:18 AM EST us Milla Castillo TEAM PRIMARY CARE PHYSICIAN LAB BLOOD ORDERABLES Final Res ult [facility] [address] * THINPREP TIS PAP (09/24/2020 12:00 AM EST) Clinical Information: None given [facility] COMMENT SEE COMMENT [facility] [...] has been evaluated with computer assisted technology. [facility] Svp Operations : SEE COMMENT [facility] Comment: SXA, CT(ASCP) CT screening location: [address] ??[id number] Interpretation/R esult: Negative for intraepithelial lesion or malignancy. [facility] LMP: NONE GIVEN [facility] Prev. BX: NONE GIVEN [facility] Prev. PAP: NONE GIVEN [facility] SOURCE: None given [facility] Statement Of Adequacy: SEE COMMENT [facility] Comment: Satisfactory for evaluation. Endocervical/transformation zone component absent. Age and/or menstrual status not provided 09/24/2020 Historical Provider MD LAB PATHOLOGY ORDERABLES Final Result Performing Organization Address [facility] Co de Phone Number [facility] [address] * HPV mRNA E6/E7 (09/24/2020 12:00 AM EST) HPV nRNA E6/E7 Not Detected Not Detected [facility] Comment: This test was performed using the APTIMA HPV Assay ([employer] This assay detects E6/E7 viral messenger RNA (mRNA) from 14 high-risk HPV types (16,18,31,33,35,39,45,51,52,56,58,59,66,68). ?? The analytical performance characteristics of this assay have been determined by [employer]. The modifications have not been cleared or approved by the FDA. This assay has been validated pursuant to the CLIA regulations and is used for clinical purposes. 09/24/2020 Historical Provider MD LAB BLOOD ORDERABLES Courtney l Result Performing Organization Address [facility]/ZIP Co de Phone Number [facility] [address] from Last 3 Months or Most Recently Relevant to Health Maintenance [place] [address] [place] [address] Care Teams Domestic Housekeeper Relationship Specialty Start Date End Date Fely Bey FNP [address] [place] [phone] PCP - General Family Medicine 05/20/22
--- OUTSIDE RECORDS SUMMARY | 2024-11-01 07:55 | XMS_ITS | Encounter Summary ---
Author Organization [employer] Address 75 [facility] 7t [place] [address] Care Team Providers Care Quartz Mounter Name Role Phone Fely Bye Primary Care Provider [phone] Encounter Details Date Type Department Care Team (Late st Contact Info) Description 06/28/2024 Orders Only [facility] MED[facility]INE [address] [place] [address] Fely Bey FNP [address] [place] [address] Class 3 severe obesity due to excess [...] documented as of this encounter Care Teams Quartz Mounter Relationship Specialty Start Date End Date Fely Bey FNP [address] [place] [phone] PCP - General Family Medicine 05/20/22 documented as of this encounter
--- OUTSIDE RECORDS SUMMARY | 2024-11-01 07:55 | XMS_ITS | Encounter Summary ---
Author Organization [employer] Address 75 [facility] 7 [place] [address] Care Team Providers Care Laser Technician Name Role Phone Fely Bey IZZY Primary Care Provider [phone] Reason for Visit * Reason Onset Date Comments Lab Orders 10/19/2024 Encounter Details Date Type Department Care Team (Late st Contact Info) Description 10/19/2024 Telephone [facility] MEDICINE [address] [place], [place] [phone] Ines Soares RN [address] [place] [address] Lab Orders Social History Tobacco Use Types Packs/Day Years [...] encounter Miscellaneous Notes * Telephone Encounter - IZZY Samaniego - 10/19/2024 4:29 PM EST [employer] [facility] message sent to her earlier today, all set. * Telephone Encounter - Ines Soares RN - 10/19/2024 11:05 AM EST Received message from [facility] lab reporting the urine specimen received on 10/18/24 with the order for au/a with reflex to culture was not labeled and cannot be processed. Patient will need to resubmit new specimen. Message sent to ordering provider Fely Bey NP and [place] Bead Machine Operator. documented in this encounter Plan of Treatment Not on file documented as of this encounter Visit Diagnoses Not on filedocumented in this encounter Additional Health Concerns Assessment Noted Time PHQ-9 Depression Total Score: 5 09/27/19 3:46 PM EST documented as of this encounter Care Teams Laser Technician Relationship Specialty Start Date End Date Fely Bey FNP [address] [place] [address] PCP - General Family Medicine 05/20/22 documented as of this encounter
--- OUTSIDE RECORDS SUMMARY | 2024-11-01 07:55 | XMS_ITS | Encounter Summary ---
Author Organization [employer] Address 75 [facility] 7 [place] [address] Care Team Providers Care Analytical Sciences Director Name Role Phone Fely Bey IZZY Primary Care Provider [phone] Reason for Visit * Reason Onset Date Comments Chart Prep 10/18/2024 Encounter Details Date Type Department Care Team ([facility] st Contact Info) Description 10/18/2024 Telephone [facility] MEDICINE [address] [place] [address] Columba Valencia MA Chart Prep Social History [...] documented as of this encounter Care Teams Analytical Sciences Director Relationship Specialty Start Date End Date Fely Bey FNP [address] [place] [address] PCP - General Family Medicine 05/20/22 documented as of this encounter
--- OUTSIDE RECORDS SUMMARY | 2024-11-01 07:55 | XMS_ITS | Encounter Summary ---
Author Organization [employer] Address 75 [facility] 7 [place] [address] Care Team Providers Care Attacher Name Role Phone Fely Bey Primary Care Provider [phone] Reason for Visit * Reason Onset Date Comments Med Refill 10/05/2024 Encounter Details Date Type Department Care Team (Late st Contact Info) Description 10/05/2024 Refill [facility] MED[facility]INE [address] [place] [address] Fely Bey FNP [address] [place], [place] [phone] Class 3 severe obesity without serious comorbidity [...] documented as of this encounter Care Teams Attacher Relationship Specialty Start Date End Date Fely Bey FNP [address] [place] [address] PCP - General Family Medicine 05/20/22 documented as of this encounter
--- OUTSIDE RECORDS SUMMARY | 2024-11-01 07:55 | XMS_ITS | Encounter Summary ---
Author Organization [employer] Address 75 [facility] 7 [place] [address] Care Team Providers Care Banquet Stewardess Name Role Phone Fely Bey Primary Care Provider [phone] Encounter Details Date Type Department Care Team ([facility] st Contact Info) Description 07/31/2024 Orders Only [facility] [address] [place], [place] [phone] Fely Bey FNP [address] [place], [place] [phone] Social History Tobacco Use Types Packs/Day Years [...] documented as of this encounter Care Teams Banquet Stewardess Relationship Specialty Start Date End Date Fely Bey FNP [address] [place] [phone] PCP - General Family Medicine 05/20/22 documented as of this encounter
--- OUTSIDE RECORDS SUMMARY | 2024-11-01 07:55 | XMS_ITS | Encounter Summary ---
Author Organization [employer] Address 75 [facility] 7 [place] [address] Care Team Providers Care Marketing Rotation Associate Name Role Phone Fely Bey Primary Care Provider [phone] Reason for Visit * Reason Onset Date Comments Med Refill 08/10/2024 Encounter Details Date Type Department Care Team (Late st Contact Info) Description 08/10/2024 Refill [facility] MEDICINE [address] [place] [address] Fely Bey FNP [address] [place], [place] [phone] Class 3 severe obesity due to excess [...] documented as of this encounter Care Teams Marketing Rotation Associate Relationship Specialty Start Date End Date Fely Bey FNP [address] [place] [phone] PCP - General Family Medicine 05/20/22 documented as of this encounter
--- OUTSIDE RECORDS SUMMARY | 2024-11-01 07:55 | XMS_ITS | Encounter Summary ---
Author Organization [employer] Address 75 [facility] 7 [place] [address] Care Team Providers Care Podiatry Assistant Name Role Phone Fely Bey Primary Care Provider [phone] Reason for Visit * Reason Comments Med Refill Encounter Details Date Type Department Care Team (Late st Contact Info) Description 07/17/[address] [facility] MEDICINE [address] [place] [address] Fely Bey FNP [address] [place], [place] [phone] Class 3 severe obesity due to excess [...] documented as of this encounter Care Teams Podiatry Assistant Relationship Specialty Start Date End Date Fely Bey FNP [address] [place] [address] PCP - General Family Medicine 05/20/22 documented as of this encounter
--- OUTSIDE RECORDS SUMMARY | 2024-11-01 07:55 | XMS_ITS | Encounter Summary ---
Author Organization [employer] Address 75 [facility] 7 [place] [address] Care Team Providers Care Facilities Engineering Manager Name Role Phone Fely Bey Primary Care Provider [phone] Reason for Visit * Reason Comments Med Refill Encounter Details Date Type Department Care Team (Late st Contact Info) Description 04/14/2023 Refill [facility] MEDICINE [address] [place] [address] Fely Bey FNP [address] [place], [place] [phone] Social History Tobacco Use Types Packs/Day Years [...] on filedocumented in this encounter Care Teams Facilities Engineering Manager Relationship Specialty Start Date End Date Fely Bey FNP [address] [place] [address] PCP - General Family Medicine 05/20/22 documented as of this encounter
--- OUTSIDE RECORDS SUMMARY | 2024-11-01 07:55 | XMS_ITS | Encounter Summary ---
Author Organization [employer] Address 75 [facility] 7 [place] [address] Care Team Providers Care Vulcanizing Machine Operator Name Role Phone Fely Bey Primary Care Provider [phone] Reason for Visit * Reason Onset Date Comments Med Refill 05/23/2024 Encounter Details Date Type Department Care Team (Late st Contact Info) Description 05/23/2024 Refill [facility] MED & PEDS [address] [place], [place] [phone] Fely Bey FNP [address] [place], [place] [phone] Class 3 severe obesity without serious comorbidity [...] documented as of this encounter Care Teams Vulcanizing Machine Operator Relationship Specialty Start Date End Date Fely Bey FNP [address] [place] [phone] PCP - General Family Medicine 05/20/22 documented as of this encounter
--- OUTSIDE RECORDS SUMMARY | 2024-11-01 07:55 | XMS_ITS | Encounter Summary ---
Author Organization [employer] Address [address] [facility] 7 [place] [address] Care Team Providers Care Peanut Grader Name Role Phone Fely Bey Primary Care Provider [phone] Encounter Details Date Type Department Care Team ([facility] st Contact Info) Description 10/18/2024 1:00 PM EST Office Visit [facility] MEDICINE [address] [place] [address] Fely Bey FNP [address] [place], [place] [phone] Urinary symptom or sign (Primary Dx); Genital [...] this encounter Progress Notes * Fely Bey, ASSOCIATE PASTOR - 10/18/2024 1:00 PM EST Subjective: Joyce [...] Grandmother Social History Social History Narrative 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 Constitutional: Appearance: Normal appearance. HENT: Head: Atraumatic. [...] Type Priority Associated Diagnoses Orde r Schedule Urinalysis, Complete, with Reflex to Culture Lab Routine Urinary symptom or sign Expected: 10/18/2024 (Approximate), Expires: 10/18/2025 documented as of this encounter Procedures Procedure Name Priority Date/Time Associated Diagnosis Comments POCT , URINE Routine 10/18/2024 2:32 PM EST Urinary symptom or sign POCT URINALYSIS DIPSTICK Routine 10/18/2024 2:32 PM EST Urinary symptom or sign BACTERIAL VAGINOSIS PANEL Routine 10/18/2024 1:59 PM EST Genital lesion, female HERPES CULTURE WITH REFLEX TYPING Routine 10/18/2024 1:59 PM EST Genital lesion, female CHLAMYDIA/N. GONORRHOEAE RNA, TMA, UROGENITAL Routine 10/18/2024 1:59 PM EST Genital lesion, female documented in this encounter Results * POCT [...] Media Lot # [id number] Lot# Expiration Date , Urine 10/18/2024 2:32 PM EST [facility] POINT OF CARE TEST ENTER/EDIT ORDERABLES Final Result * POCT Urine (10/18/2024 2:32 PM EST) Preg Test, Ur Negative Negative, Indeterminate, None Detected, Invalid, Specimen unsatisfactory for evaluation, Weakly Positive QC Media Lot # [id number] Lot# Expiration Date ,026 Urine 10/18/2024 2:32 PM EST [facility] POINT OF CARE TEST ENTER/EDIT ORDERABLES Edited Result - Final * (ABNORMAL) Herpes Simplex Virus Culture with Reflex Typing (10/18/2024 1:59 PM EST) Pathologist [facility] HSV Culture/Type SEE NOTE(A) [facility] Comment:HERPES SIMPLEX VIRUS CULTURE W/RFL TO TYPING Micro Number: [id number] Test Status: Final Specimen Source: Not given Specimen Quality: Adequate HSV Culture: Isolated HSV TYPE 2: Not Isolated HSV TYPE 1: IsolatedTHIS TEST WAS PERFORMED AT:[facility] [id number] MERATI,MD Swab (Lesion) 10/18/2024 1:5 9 PM EST 10/18/2024 4:51 PM EST Fely [facility] LAB MICROBIOLOGY - GENERAL ORD ERABLES Final Result [facility] [address] [place] [phone] * (ABNORMAL) Bacterial Vaginosis (10/18/2024 1:59 PM EST) TRICHOMONAS VAGINALIS DETECTION BY PCR NOT DETECTED Not Detect [facility] BACTERIAL VAGINOSIS DETECTION BY PCR POSITIVE(A) Negative [facility] Comment:The BV organism targ ets of [...] GROUP DETECTION BY PCR DETECTED(A) Not Detect [facility] Clari glab krusei PCR NOT DETECTED Not Detect [facility] Swab Vaginal structure / Unknown 10/18/2024 1:59 PM EST 10/18/2024 4:51 PM EST Fely Bey [facility] MICROBIOLOGY - GENERAL ORD ERABLES Final Result [facility] [address] [place] [phone] * Chlamydia/N. Gonorrhoeae RNA, TMA, Urogenitial (10/18/2024 1:59 PM EST) Pathologist [facility] CT PCR NOT DETECTED Not Detect. [facility] Comment:A not detected test result does [...] psychologicalconsequences. NG PCR NOT DETECTED Not Detect. [facility] Comment:A not detected test result does [...] PM EST 10/18/2024 4:51 PM EST Narrative [facility] - 10/19/2024 11:06 AM EST Vaginal us Fely [facility] LAB MICROBIOLOGY - GENERAL ORD ERABLES Final Result [facility] [address] [place] [phone] documented in this encounter Visit Diagnoses Diagnosis Urinary symptom or sign- Primary Genital lesion, female Other specified disorders of female genital organs Vaginal itching Pruritus of genital organs documented in this encounter Additional Health Concerns Assessment Noted Time PHQ-9 Depression Total Score: 5 09/27/19 25 3:46 PM EST documented as of this encounter Care Teams Peanut Grader Relationship Specialty Start Date End Date Fely Bey FNP [address] [place] [address] PCP - General Family Medicine 05/20/22 documented as of this encounter
--- OUTSIDE RECORDS SUMMARY | 2024-11-01 07:55 | XMS_ITS | Encounter Summary ---
Author Organization [employer] Address [address] [facility] 7t [place] [address] Care Team Providers Care Shipping Coordinator Name Role Phone Fely Bey SALES FORCE ADMINISTRATOR Primary Care Provider [phone] Encounter Details Date Type Department Care Team [...] documented as of this encounter Care Teams Shipping Coordinator Relationship Specialty Start Date End Date Fely Bey FNP [address] [place] [address] PCP - General Family Medicine 05/20/22 documented as of this encounter
--- OUTSIDE RECORDS SUMMARY | 2024-11-01 07:55 | XMS_ITS | Encounter Summary ---
Author Organization [employer] Address [address] [facility] 7 [place] [address] Care Team Providers Care Box Sealing Machine Feeder Name Role Phone Fely Bey Primary Care Provider [phone] Encounter Details Date Type Department Care Team ([facility] st Contact Info) Description 10/18/2024 Orders Only [facility] CHC MED & PEDS [address] [place], [place] [phone] Fely Bey FNP [address] [place], [place] [phone] Social History Tobacco Use Types Packs/Day Years [...] on file documented as of this encounter Procedures Procedure Name Priority Date/Time Associated Diagnosis Comments CANCELLED URINE Routine 10/18/2024 1:59 PM EST documented in this encounter Results * Cancelled Urine (10/18/2024 1:59 PM EST) Cancelled Urine SEE NOTE [facility] Comment:THE FOLLOWING TESTS WERE CANCELLED: UACC W MICROSREASON: UNLABELED SPECIMAN RECIEVED 10/18/2024 1:59 PM EST 10/18/2024 4:51 PM EST us Fely [facility] HISTORICAL/NON ORDERABLE LABS Final Result [facility] [address] [place] [address] [phone] documented in this encounter Visit Diagnoses Not on filedocumented in this encounter Additional Health Concerns Assessment Noted Time PHQ-9 Depression Total Score: 5 09/27/19 25 3:46 PM EST documented as of this encounter Care Teams Box Sealing Machine Feeder Relationship Specialty Start Date End Date Fely Bey FNP [address] [place] [address] PCP - General Family Medicine 05/20/22 documented as of this encounter
--- OUTSIDE RECORDS SUMMARY | 2024-11-01 07:55 | XMS_ITS | Encounter Summary ---
Author Organization [employer] Address [address] [facility] 7t [place] [address] Care Team Providers Care Color Dipper Name Role Phone Fely Bey ENGINEERING MODEL MAKER Primary Care Provider Encounter Details Date Type Department Care Team [...] documented as of this encounter Care Teams Color Dipper Relationship Specialty Start Date End Date Fely Bey FNP [address] [place] [address] PCP - General Family Medicine 05/20/22 documented as of this encounter
--- OUTSIDE RECORDS SUMMARY | 2024-11-01 07:55 | XMS_ITS | Encounter Summary ---
Author Organization [employer] Address 75 [facility] 7 [place] [address] Care Team Providers Care Watershed Tender Name Role Phone Fely Bey Primary Care Provider [phone] Encounter Details Date Type Department Care Team ([facility] st Contact Info) Description 10/11/2024 Orders Only [facility] CHC MED & PEDS [address] [place], [place] [phone] Fely Bey FNP 505 [place], [place] [phone] Urinary symptom or sign (Primary Dx); Class [...] as of this encounter Plan of Treatment Scheduled Orders Name Type Priority Associated Diagnoses Orde r Schedule Urinalysis, Complete, with Reflex to Culture Lab Routine Urinary symptom or sign Expected: 10/19/2024 (Approximate), Expires: 10/19/2025 documented as of this encounter Visit Diagnoses Diagnosis Urinary symptom or sign- Primary Class 3 severe obesity without serious comorbidity with body mass index (BMI) of 40.0 to 44.9 in adult, unspecified obesity type (CMS/HCC) documented in this encounter Additional Health Concerns Assessment Noted Time PHQ-9 Depression Total Score: 5 09/27/19 25 3:46 PM EST documented as of this encounter Care Teams Watershed Tender Relationship Specialty Start Date End Date Fely Bey FNP [address] [place] [address] PCP - General Family Medicine 05/20/22 documented as of this encounter
[2024-11-01 09:05] LABS: C Reactive Protein 0.23 mg/dL (< or = 0.50)
[2024-11-01 09:06] LABS: Erythrocyte Sedimentation Rate 11 MM/HR (0-20)
[2024-11-01 09:20] LABS: Rheumatoid Factor < 13.0 IU/mL (<15.0)
[2024-11-01 09:25] LABS: Vitamin D 25-OH Total 31.9 ng/mL (>30)
[2024-11-01 09:43] LABS: Folate 6.6 ng/mL (> or = 4.0); Vitamin B12 516 pg/mL (200-900)
[2024-11-05 10:54] LABS: Anti Nuclear Antibody Screen NEGATIVE (NEGATIVE)
== END 2024-11-01 07:53 | disposition home or self-care (01) ==
LOC: HO.LAB 07:52
PROVIDERS: PCP Registered Nurse; Visit Provider Registered Nurse
DX: Z00.00 Encounter for general adult medical examination without abnormal findings (principal); M25.541 Pain in joints of right hand; M25.542 Pain in joints of left hand; E55.9 Vitamin D deficiency, unspecified
CPT/HCPCS: 36415; 82306; 82607; 82746; 85652; 86038; 86140; 86431

== ENCOUNTER 2024-11-08 09:05 | Outpatient (REF) | payer OTHER, SELFPAY ==
--- NOTE | ~2024-11-08 | CT_ITS ---
EXAMINATION: CT ABDOMEN AND PELVIS WITH CONTRAST CLINICAL INFORMATION: Right lower quadrant abdominal pain. COMPARISON: 12/24/2017. TECHNIQUE: Multidetector volumetric images were obtained from the superior aspect of the liver through the pubic symphysis following administration 85 mL of Omnipaque 350 intravenous contrast. Sagittal and coronal reformatted images were obtained on the technologist's workstation. Oral contrast: No This CT examination was performed using dose optimization techniques as appropriate, variously including the following: *Automated exposure control *Adjustment of mA and/or kV according to patient size (this includes techniques or standardized protocols for targeted exams where dose is matched to indication/reason for exam; i.e. extremities or head) *Use of iterative reconstruction technique FINDINGS: LUNG BASES: The visualized lung bases are unremarkable. LIVER, GALLBLADDER, AND BILIARY TREE: The liver is normal in size, shape, and attenuation. No focal hepatic lesion or biliary ductal dilatation is present. The gallbladder is unremarkable with no evidence of radiopaque gallstones, gallbladder wall thickening, or obvious pericholecystic inflammatory changes. PANCREAS: Unremarkable. SPLEEN: Unremarkable. ADRENAL GLANDS: Unremarkable. KIDNEYS AND URETERS: The kidneys are normal in size, shape, and attenuation. No hydronephrosis, hydroureter, or calculi seen. No perinephric stranding. BLADDER: Unremarkable. GASTROINTESTINAL TRACT: The small and large bowel are unremarkable. The appendix is unremarkable. Prior gastric sleeve surgery. ABDOMINAL WALL: No significant hernia is appreciated. LYMPH NODES: Normal. VASCULAR: Unremarkable. PELVIC VISCERA: The uterus and adnexa are unremarkable. OSSEOUS STRUCTURES: No suspicious lytic or blastic bone lesions. CT/CT abdomen pelvis w IV con IMPRESSION: 1. No acute findings in the abdomen or pelvis. Electronically signed by: Maximus Ivory MD 11/08/2024 11:54 AM [facility]
--- OUTSIDE RECORDS SUMMARY | 2024-11-08 09:17 | XMS_ITS | Encounter Summary ---
Author Organization [employer] Address [address] [facility] 7 [place] [address] Care Team Providers Care Sales Development Coordinator Name Role Phone Fely Bey Primary Care Provider [phone] Reason for Visit * Reason Comments Med Refill Encounter Details Date Type Department Care Team (Late st Contact Info) Description 07/17/2024 Refill [facility] MEDICINE [address] [place] [address] Fely Bey FNP [address] [place], [place] [phone] Class 3 severe obesity due to excess [...] documented as of this encounter Care Teams Sales Development Coordinator Relationship Specialty Start Date End Date Fely Bey FNP [address] [place] [address] PCP - General Family Medicine 05/20/22 documented as of this encounter
--- OUTSIDE RECORDS SUMMARY | 2024-11-08 09:17 | XMS_ITS | Encounter Summary ---
Author Organization [employer] Address [address] [facility] 7 [place] [address] Care Team Providers Care Carpet Installation Specialist Name Role Phone Fely Bey Primary Care Provider [phone] Reason for Visit * Reason Comments Med Refill Encounter Details Date Type Department Care Team ([facility] Contact Info) Description 10/13/2024 Refill [facility] CHC MED & PEDS [address] [place], [place] [phone] Fely Bey FNP 505 [place], [place] [phone] Vitamin B12 deficiency Social History Tobacco Use [...] message doesn't statewhich medication? Pa generated for Keelvar sent to [facility] , Pending . documented in this encounter Plan of Treatment Not on file documented as of this encounter Visit Diagnoses Diagnosis Vitamin B12 deficiency Other B-complex deficiencies documented in this encounter Additional Health Concerns Assessment Noted Time PHQ-9 Depression Total Score: 5 09/27/19 25 3:46 PM EST documented as of this encounter Care Teams Carpet Installation Specialist Relationship Specialty Start Date End Date Fely Bey FNP [address] [place] [address] PCP - General Family Medicine 05/20/22 documented as of this encounter
--- OUTSIDE RECORDS SUMMARY | 2024-11-08 09:17 | XMS_ITS | Encounter Summary ---
Author Organization [employer] Address [address] [facility] 7 [place] [address] Care Team Providers Care Manager Fund Name Role Phone Fely Bey IZZY Primary Care Provider [phone] Reason for Visit * Reason Onset Date Comments Chart Prep 10/18/2024 Encounter Details Date Type Department Care Team ([facility] st Contact Info) Description 10/18/2024 Telephone [facility] MEDICINE [address] [place] [address] Columba Valencia [place] Chart Prep Social History [...] documented as of this encounter Care Teams Manager Fund Relationship Specialty Start Date End Date Fely Bey FNP [address] [place] [address] PCP - General Family Medicine 05/20/22 documented as of this encounter
--- OUTSIDE RECORDS SUMMARY | 2024-11-08 09:17 | XMS_ITS | Encounter Summary ---
Author Organization [employer] Address [address] [facility] 7 [place] [address] Care Team Providers Care Teaching Manager Name Role Phone Fely Bey Primary Care Provider [phone] Reason for Visit * Reason Onset Date Comments Med Refill 08/10/2024 Encounter Details Date Type Department Care Team (Late st Contact Info) Description 08/10/2024 Refill [facility] MEDICINE [address] [place] [address] Fely Bey FNP [address] [place], [place] [phone] Class 3 severe obesity due to excess [...] documented as of this encounter Care Teams Teaching Manager Relationship Specialty Start Date End Date Fely Bey FNP [address] [place] [address] PCP - General Family Medicine 05/20/22 documented as of this encounter
--- OUTSIDE RECORDS SUMMARY | 2024-11-08 09:17 | XMS_ITS | Encounter Summary ---
Author Organization [employer] Address 75 [facility] 7 [place] [address] Care Team Providers Care Commodity Management Specialist Name Role Phone Fely Bey Primary Care Provider [phone] Encounter Details Date Type Department Care Team ([facility] st Contact Info) Description 10/11/2024 Orders Only [facility] CHC MED & PEDS [address] [place], [place] [phone] Fely Bey FNP 505 [place], [place] [phone] Urinary symptom or sign (Primary Dx); Class [...] documented as of this encounter Care Teams Commodity Management Specialist Relationship Specialty Start Date End Date Fely Bey FNP [address] [place] [address] PCP - General Family Medicine 05/20/22 documented as of this encounter
--- OUTSIDE RECORDS SUMMARY | 2024-11-08 09:17 | XMS_ITS | Encounter Summary ---
Author Organization [employer] Address 75 [facility] 7 [place] [address] Care Team Providers Care Courtroom Deputy Or Calendar Clerk Name Role Phone Fely Bey Primary Care Provider [phone] Encounter Details Date Type Department Care Team ([facility] st Contact Info) Description 10/18/2024 Orders Only [facility] CHC MED & PEDS [address] [place], [place] [phone] Fely Bey FNP [address] [place], [place] [phone] Social History Tobacco Use Types Packs/Day Years [...] 1:59 PM EST) Cancelled Urine SEE NOTE [facility] Comment:THE FOLLOWING TESTS WERE CANCELLED: UACC W MICROSREASON: UNLABELED SPECIMAN RECIEVED 10/18/2024 1:59 PM EST 10/18/2024 4:51 PM EST us Fely [facility] HISTORICAL/NON ORDERABLE LABS Final Result [facility] [address] [place] [address] [phone] documented in this encounter Visit Diagnoses Not on filedocumented in this encounter Additional Health Concerns Assessment Noted Time PHQ-9 Depression Total Score: 5 09/27/19 25 3:46 PM EST documented as of this encounter Care Teams Courtroom Deputy Or Calendar Clerk Relationship Specialty Start Date End Date Fely Bey FNP [address] [place] [address] PCP - General Family Medicine 05/20/22 documented as of this encounter
--- OUTSIDE RECORDS SUMMARY | 2024-11-08 09:17 | XMS_ITS | Encounter Summary ---
Author Organization [employer] Address 75 [facility] 7t [place] [address] Care Team Providers Care Lead Sewage Plant Operator Name Role Phone Fely Bey Primary Care Provider [phone] Encounter Details Date Type Department Care Team (Late st Contact Info) Description 06/28/2024 Orders Only [facility] MEDICINE [address] [place] [address] Fely Bey FNP [address] [place] [address] Class 3 severe obesity due to excess [...] as of this encounter Care Teams Lead Sewage Plant Operator Relationship Specialty Start Date End Date Fely Bey FNP [address] [place] [address] PCP - General Family Medicine 05/20/22 documented as of this encounter
--- OUTSIDE RECORDS SUMMARY | 2024-11-08 09:17 | XMS_ITS | Encounter Summary ---
Author Organization [employer] Address 75 [facility] 7 [place] [address] Care Team Providers Care Commercial Parts Professional Name Role Phone Fely Bey Primary Care Provider [phone] Reason for Visit * Reason Comments Med Refill Encounter Details Date Type Department Care Team (Late st Contact Info) Description 04/14/2023 Refill [facility] MEDICINE [address] [place] [address] Fely Bey FNP [address] [place], [place] [phone] Social History Tobacco Use Types Packs/Day Years [...] on filedocumented in this encounter Care Teams Commercial Parts Professional Relationship Specialty Start Date End Date Fely Bey FNP [address] [place] [address] PCP - General Family Medicine 05/20/22 documented as of this encounter
--- OUTSIDE RECORDS SUMMARY | 2024-11-08 09:17 | XMS_ITS | Encounter Summary ---
Author Organization [employer] Address [address] [facility] 7 [place] [address] Care Team Providers Care Motion Picture Operator Name Role Phone Fely Bey Primary Care Provider [phone] Encounter Details Date Type Department Care Team ([facility] st Contact Info) Description 10/18/2024 1:00 PM EST Office Visit 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 Physical Exam Fiberglass Auto Body Repairer present: Declined claims auditor. Constitutional: Appearance: Normal appearance. HENT: Head: Atraumatic. [...] Date , Urine 10/18/2024 2:32 PM EST [facility] POINT OF CARE TEST ENTER/EDIT ORDERABLES Final Result * POCT Urine (10/18/2024 2:32 PM EST) Preg Test, Ur Negative Negative, Indeterminate, None Detected, Invalid, Specimen unsatisfactory for evaluation, Weakly Positive QC Media Lot # [id number] Lot# Expiration Date ,026 Urine 10/18/2024 2:32 PM EST [facility] POINT OF CARE TEST ENTER/EDIT ORDERABLES Edited Result - Final * (ABNORMAL) Herpes Simplex Virus Culture with Reflex Typing (10/18/2024 1:59 PM EST) Pathologist [facility] HSV Culture/Type SEE NOTE(A) [facility] Comment:HERPES SIMPLEX VIRUS CULTURE W/RFL TO TYPING Micro Number: [id number] Test Status: Final Specimen Source: Not given Specimen Quality: Adequate HSV Culture: Isolated HSV TYPE 2: Not Isolated HSV TYPE 1: IsolatedTHIS TEST WAS PERFORMED AT:[employer] [id number] MERATI,MD Swab (Lesion) 10/18/2024 1:5 9 PM EST 10/18/2024 4:51 PM EST Fely [facility] LAB MICROBIOLOGY - GENERAL ORD ERABLES Final Result [facility] [address] [place] [phone] * (ABNORMAL) Bacterial Vaginosis (10/18/2024 1:59 PM EST) TRICHOMONAS VAGINALIS DETECTION BY PCR NOT DETECTED Not Detect [facility] BACTERIAL VAGINOSIS DETECTION BY PCR POSITIVE(A) Negative [facility] Comment:The BV organism targ ets [...] GROUP DETECTION BY PCR DETECTED(A) Not Detect [facility] Clari glab krusei PCR NOT DETECTED Not Detect [facility] Swab Vaginal structure / Unknown 10/18/2024 1:59 PM EST 10/18/2024 4:51 PM EST Fely Bey [facility] MICROBIOLOGY - GENERAL ORD ERABLES Final Result [facility] [address] [place] [phone] * Chlamydia/N. Gonorrhoeae RNA, TMA, Urogenitial (10/18/2024 1:59 PM EST) Pathologist [facility] CT PCR NOT DETECTED Not Detect. [facility] Comment:A not detected test result [...] psychologicalconsequences. NG PCR NOT DETECTED Not Detect. [facility] Comment:A not detected test result [...] PM EST 10/18/2024 4:51 PM EST Narrative [facility] - 10/19/2024 11:06 AM EST Vaginal us Fely [facility] LAB MICROBIOLOGY - GENERAL ORD ERABLES Final Result [facility] [address] [place] [phone] documented in this encounter Visit Diagnoses Diagnosis Urinary symptom or sign- Primary Genital lesion, female Other specified disorders of female genital organs Vaginal itching Pruritus of genital organs documented in this encounter Additional Health Concerns Assessment Noted Time PHQ-9 Depression Total Score: 5 09/27/19 25 3:46 PM EST documented as of this encounter Care Teams Motion Picture Operator Relationship Specialty Start Date End Date Fely Bey FNP [address] [place] [address] PCP - General Family Medicine 05/20/22 documented as of this encounter
--- OUTSIDE RECORDS SUMMARY | 2024-11-08 09:17 | XMS_ITS | Encounter Summary ---
Author Organization [employer] Address 75 [facility] 7 [place] [address] Care Team Providers Care Plastic Parts Fabricator Name Role Phone Fely Bey Primary Care Provider [phone] Encounter Details Date Type Department Care Team ([facility] st Contact Info) Description 07/31/2024 Orders Only [facility] CHC MED & PEDS [address] [place], [place] [phone] Fely Bey FNP [address] [place], [place] [phone] Social History Tobacco Use Types Packs/Day Years [...] documented as of this encounter Care Teams Plastic Parts Fabricator Relationship Specialty Start Date End Date Fely Bey FNP [address] [place] [address] PCP - General Family Medicine 05/20/22 documented as of this encounter
--- OUTSIDE RECORDS SUMMARY | 2024-11-08 09:17 | XMS_ITS | Encounter Summary ---
Author Organization [employer] Address [address] [facility] 7 [place] [address] Care Team Providers Care Senior Environmental Engineer Name Role Phone Fely Bey IZZY Primary Care Provider [phone] Reason for Visit * Reason Onset Date Comments Lab Orders 10/19/2024 Encounter Details Date Type Department Care Team (Late st Contact Info) Description 10/19/2024 Telephone [facility] MEDICINE [address] [place], [place] [phone] Ines Soares RN [address] [place] [address] Lab Orders Social History Tobacco Use Types [...] IZZY Samaniego - 10/19/2024 4:29 PM EST [employer] message sent to her earlier today, all set. * Telephone Encounter - Ines Soares RN - 10/19/2024 11:05 AM EST Received message from [facility] lab reporting the urine specimen received on 10/18/24 with the order for au/a with reflex to culture was not labeled and cannot be processed. Patient will need to resubmit new specimen. Message sent to ordering provider Fely Bey NP and [place] Surgical Territory Manager. documented in this encounter Plan of Treatment Not on file documented as of this encounter Visit Diagnoses Not on filedocumented in this encounter Additional Health Concerns Assessment Noted Time PHQ-9 Depression Total Score: 5 09/27/19 3:46 PM EST documented as of this encounter Care Teams Senior Environmental Engineer Relationship Specialty Start Date End Date Fely Bey FNP [address] [place] [address] PCP - General Family Medicine 05/20/22 documented as of this encounter
--- OUTSIDE RECORDS SUMMARY | 2024-11-08 09:17 | XMS_ITS | Encounter Summary ---
Author Organization [employer] Address 75 [facility] 7t [place] [address] Care Team Providers Care Compliance Technician Name Role Phone Fely Bey PILE FABRIC KNITTER Primary Care Provider [phone] Encounter Details Date Type Department Care Team [...] documented as of this encounter Care Teams Compliance Technician Relationship Specialty Start Date End Date Fely Bey FNP [address] [place] [address] PCP - General Family Medicine 05/20/22 documented as of this encounter
--- OUTSIDE RECORDS SUMMARY | 2024-11-08 09:17 | XMS_ITS | Encounter Summary ---
Author Organization [employer] Address 75 [facility] 7 [place] [address] Care Team Providers Care Coal Grader Name Role Phone Fely Bey Primary Care Provider Reason for Visit * Reason Onset Date Comments ER Follow-up 08/10/2023 Encounter Details Date Type Department Care Team (Late st Contact Info) Description 08/10/2023 Telephone [facility] [address] [place] [address] Fely Bey FNP [address] [place], [place] [phone] ER Follow-up Social History Tobacco Use Types [...] message below. Pt states going to [facility] ED on 08/08/23 for R sided lower [...] to go to ED. Pt agrees to [facility] appt tomorrow with provider to discuss further POC. ED notes printed and sent to scan. * Telephone Encounter - Christo López - 08/10/2023 8:25 AM EST Tc from patient requesting a ER follow up appt was in the ER at [facility] on 08/08 for lower back pain. If possible to contact patient after 2 pm after work. documented in this encounter Plan of Treatment Not on file documented as of this encounter Visit Diagnoses Not on filedocumented in this encounter Care Teams Coal Grader Relationship Specialty Start Date End Date Fely Bey FNP [address] [place] [address] PCP - General Family Medicine 05/20/22 documented as of this encounter
--- OUTSIDE RECORDS SUMMARY | 2024-11-08 09:18 | XMS_ITS | Clinical Summary ---
Author Organization [employer] Address 75 [facility] 7t [place] [address] Care Team Providers Care Management Liaison Name Role Phone Fely Bey IZZY Primary Care Provider [phone] Allergies No known active allergies Medications cholecalciferol [...] Vit C, D-mannose, and Cranberry extract Active Semaglutide-Weig ht Management (Wegovy) 1.7 MG/0.75ML [...] 2 times daily. 20 capsule 025 2024 fluconazole (Diflucan) 150 MG tabletIndication s:Vaginal itching [...] Overview (09/27/2024): Lab Results Component Value Date HEUV55LSLUJ 25.8 (L) 07/12/2024 [id number] 16.1 (L) 01/06/2024 [id number] 13.4 12/24/2022 Continues with Vit D 1000 [...] Type Department Care Team Description 10/19/[address] [address] Ines Soares RN Lab Orders 10/18/2024 1:00 PM EST Office Visit [address] [address] Fely Bey FNP Urinary symptom or sign (Primary Dx); Genital lesion, female; Vaginal itching 10/18/2024 Orders Only [facility] [address] [place] [address] Fely Bey FNP 10/18/2024 Travel 10/18/[address] [address] Columba Valencia [place] Chart Prep 10/13/2024 Refill [facility] [address] [place], [place] [phone] Fely Bey, FUNDING COORDINATOR Vitamin B12 deficiency 10/11/2024 Orders Only [facility] [address] [place] [address] Fely Bey, FUNDING COORDINATOR Urinary symptom or sign (Primary Dx); Class 3 severe obesity without serious comorbidity with body mass index (BMI) of 40.0 to 44.9 in adult, unspecified obesity type ([facility]) 10/05/2024 Refill [facility] [address] [place] [address] Fely Bey FNP Class 3 severe obesity without serious comorbidity with body mass index (BMI) of 40.0 to 44.9 in adult, unspecified obesity type ([facility]) 10/02/2024 5:20 PM EST Office Visit [facility] [address] [place] [address] Jessica Hathaway MD Left upper quadrant abdominal pain (Primary Dx); Left lower quadrant abdominal pain 10/02/2024 Travel 09/27/2024 9:15 AM EST Office Visit [facility] [address] [place] [address] Fely Bey FNP Class 3 severe obesity due to excess calories without serious comorbidity with body mass index (BMI) of 45.0 to 49.9 in adult ([facility]) (Primary Dx); Vitamin D insufficiency; Healthcare maintenance; Joint pain in both hands; Dietary counseling; Exercise counseling 09/27/2024 Travel 09/21/2024 Telephone [facility] [address] [place] [address] Columba Valencia MA Chart Prep 09/15/2024 Patient Outreach [facility] [address] [place], [place] [phone] Fely Bey FNP Pre-visit Planning (SDOH screening was completed on 04/24/2024) 08/10/2024 Refill [facility] [address] [place] [address] Fely Bey FNP Class 3 severe obesity due to excess calories without serious comorbidity with body mass index (BMI) of 45.0 to 49.9 in adult ([facility]) from Last 3 Months Immunizations Name Administration [...] Procedure Name Priority Date/Time Associated Diagnosis Comments C-REACTIVE PROTEIN Routine 11/01/2024 8: 07 AM EST Joint pain in both hands SED RATE BY MODIFIED WESTERGREN Routine 11/01/2024 8:07 AM EST Joint pain in both hands RHEUMATOID FACTOR Routine 11/01/2024 8:0 7 AM EST Joint pain in both hands JOSE SCREEN, IFA, W/REFL TITER AND PATTERN Routine 11/01/2024 8:07 AM EST Joint pain in both hands VITAMIN B12/FOLATE, SERUM PANEL Routine 11/01/2024 8:07 AM EST Healthcare maintenance VITAMIN D,25-OH,TOTAL,IA Routine 11/01/2024 8:07 AM EST Vitamin D insufficiency POCT URINALYSIS DIPSTICK Routine 10/18/2024 2:32 PM [...] Recently Relevant to Health Maintenance Results * Vitamin D, 25-Hydroxy, Total, Immunoassay (11/01/2024 8:07 AM EST) Vitamin D 25-OH Total 31.9 >30 ng/mL [facility] Comment:Health Based Referen ce Values*< 20 ng/mL Muyfodxzb72-82 ng/mL Insufficient> 30 ng/mL Sufficient*iNthya MONTILLA. N Engl J Med. 2007;357:266-280Care must be taken in interpreting Vitamin D results fromdifferent laboratories and methodologies. Published datademonstrated that results from patients undergoinghemodialysis may show a negative bias when tested withvarious automated 25-OH vitamin D assays when compared toLC-MS/MS.When testing samples from patients whose predominant form ofVitamin D is Vitamin D2, such as patients receiving VitaminD2 supplementation, results that are subtherapeutic shouldbe confirmed with another method such as LC-MS/MS. Blood Venous blood specimen / Unknown 11/01/2024 8:07 AM EST 11/01/2024 8:07 AM EST us Fely Bey [facility] BLOOD ORDERABLES Final Res ult [facility] [address] [place] [phone] * Vitamin B12/Folate, Serum Panel (11/01/2024 8:07 AM EST) Vitamin B12 516 200 - 900 pg/mL [facility] Comment:NORMAL 200-900 PG/ML INDETERMINATE 160-199 PG/ML DEFICIENT < 160 PG/ML Folate 6.6 > or = 4.0 ng/mL [facility] Comment:Reference Values:> o r = 4.0 ng/mL< 4.0 ng/mL suggests folate deficiency Methotrexate, aminopterin and folinic acid(leucovorin) are chemotherapeutic agents whose molecularstructures are similar to folate; therefore, the Architectfolate assay cannot be used for patients using these drugs. Blood Venous blood specimen / Unknown 11/01/2024 8:07 AM EST 11/01/2024 8:07 AM EST Fely Bey FUNDING COORDINATOR LAB BLOOD ORDERABLES Final Res ult Performing Organization Address City/[facility]/ZIP Co de Phone Number [facility] [address] [place] [address] [phone] * Sed Rate by Modified Westergren (11/01/2024 8:07 AM EST) Erythrocyte Sedimentation Rate 11 0 - 20 MM/HR [facility] Comment:Patients with polycy themia and many hemoglobin abnormalitiesmay have depressed sed rates whereas patients with anemiamay have elevated sed rates. Blood Venous blood specimen / Unknown 11/01/2024 8:07 AM EST 11/01/2024 8:07 AM EST Fely Bey FUNDING COORDINATOR LAB BLOOD ORDERABLES Final Res ult Performing Organization Address [facility] Co de Phone Number [facility] [address] [place] [address] [phone] * Rheumatoid Factor (11/01/2024 8:07 AM EST) Rheumatoid Factor <13.0 <15.0 IU/mL [facility] Blood Venous blood specimen / Unknown 11/01/2024 8:07 AM EST 11/01/2024 8:07 AM EST Fely Bey FUNDING COORDINATOR LAB BLOOD ORDERABLES Final Res ult Performing Organization Address [facility]/ZIP Co de Phone Number [facility] [address] [place] [address] [phone] * C-reactive Protein (11/01/2024 8:07 AM EST) C Reactive Protein 0.23 < or = 0.50 mg/dL [facility] Blood Venous blood specimen / Unknown 11/01/2024 8:07 AM EST 11/01/2024 8:07 AM EST Fely Bey [facility] BLOOD ORDERABLES Final Res ult Performing Organization Address [facility]/ZIP Co de Phone Number [facility] [address] [place] [address] [phone] * JOSE Screen,IFA, with Reflex to Titer and Pattern (11/01/2024 8:07 AM EST) Anti Nuclear Antibody Screen NEGATIVE NEGATIVE [facility] Comment:JOSE IFA is a first l ine screen for detecting thepresence of up to approximately 150 autoantibodies invarious autoimmune diseases. A negative JOSE IFA resultsuggests an JOSE-associated autoimmune disease is notpresent at this time, but is not definitive. If thereis high clinical suspicion for Sjogren's syndrome,testing for anti-SS-A/Ro antibody should be considered.Anti-Enma-1 antibody should be considered for clinicallysuspected inflammatory myopathies.AC-0: NegativeInternational Consensus on JOSE Patterns(https://doi.org/10.1515/cbeh-2958-6417)For additional information, please refer tohttp://education.ZeroVM/faq/JFQ667(This link is being provided for informational/educational purposes only.)THIS TEST WAS PERFORMED AT:[facility] [place] [phone] CLARK MD JOSE Titer TNP [facility] JOSE Pattern [facility] JOSE [facility]ITER 2 (REF LAB) [facility] JOSE [facility] 2 [facility] JOSE TITER 3 [facility] JOSE PATTERN 3 [facility] Blood Venous blood specimen / Unknown 11/01/2024 8:07 AM EST 11/01/2024 8:07 AM EST Fely Bey [facility] LAB BLOOD ORDERABLES Final Res ult [facility] [address] [place] [address] [phone] * POCT Urine (10/18/2024 2:32 PM EST) Preg Test, Ur Negative Negative, Indeterminate, None Detected, Invalid, Specimen unsatisfactory for evaluation, Weakly Positive QC Media Lot # [id number] Lot# Expiration Date ,026 Urine 10/18/2024 2:32 PM EST us Fely Bey [facility] POINT OF CARE TEST ENTER/EDIT ORDERABLES [...] Media Lot # [id number] Lot# Expiration Date 302,[id number] Urine 10/18/2024 2:32 PM EST us Fely Bey [facility] POINT OF CARE TEST ENTER/EDIT ORDERABLES Final Result * Cancelled Urine (10/18/2024 1:59 PM EST) Cancelled Urine SEE NOTE [facility] Comment:THE FOLLOWING TESTS WERE CANCELLED: UACC W MICROSREASON: UNLABELED SPECIMAN RECIEVED 10/18/2024 1:59 PM EST 10/18/2024 4:51 PM EST us Fely CASHP HISTORICAL/NON ORDERABLE LABS Final Result [facility] [address] [place] [address] [phone] * (ABNORMAL) Bacterial Vaginosis (10/18/2024 1:59 PM EST) TRICHOMONAS VAGINALIS DETECTION BY PCR NOT DETECTED Not Detect [facility] BACTERIAL VAGINOSIS DETECTION BY PCR POSITIVE(A) Negative [facility] Comment:The BV organism targ ets [...] GROUP DETECTION BY PCR DETECTED(A) Not Detect [facility] Clari glab krusei PCR NOT DETECTED Not Detect [facility] Swab Vaginal structure / Unknown 10/18/2024 1:59 PM EST 10/18/2024 4:51 PM EST Fely Bey [facility] MICROBIOLOGY - GENERAL ORD ERABLES Final Result [facility] [address] [place] [address] [phone] * (ABNORMAL) Herpes Simplex Virus Culture with Reflex Typing (10/18/2024 1:59 PM EST) HSV Culture/Type SEE NOTE(A) [facility] Comment:HERPES SIMPLEX VIRUS CULTURE W/RFL TO TYPING Micro Number: [id number] Test Status: Final Specimen Source: Not given Specimen Quality: Adequate HSV Culture: Isolated HSV TYPE 2: Not Isolated HSV TYPE 1: IsolatedTHIS TEST WAS PERFORMED AT:[facility] [id number] MERATI,MD Swab (Lesion) 10/18/2024 1:5 9 PM EST 10/18/2024 4:51 PM EST us Feyl Bey [facility] MICROBIOLOGY - GENERAL ORD ERABLES Final Result [facility] [address] [place] [address] [phone] * Chlamydia/N. Gonorrhoeae RNA, TMA, Urogenitial (10/18/2024 1:59 PM EST) CT PCR NOT DETECTED Not Detect. [facility] Comment:A not detected test result [...] psychologicalconsequences. NG PCR NOT DETECTED Not Detect. [facility] Comment:A not detected test result [...] PM EST 10/18/2024 4:51 PM EST Narrative [facility] - 10/19/2024 11:06 AM EST Vaginal Fely Maida FUNDING COORDINATOR LAB MICROBIOLOGY - GENERAL ORD ERABLES Final Result [facility] [address] [place] [address] [phone] * HIV 1/2 ANTIGEN/ANTIBODY,FOURTH GENERATION W/RFL [...] ? For additional information please refer to http://education.ZenMate/faq/REJ388 (This link is being provided for informational/ educational purposes only.) ? The performance of this assay has not been clinically validated in patients less than 2 years old. ?? 07/20/2022 11:5 2 AM EDT us Yar[facility]za [facility] LAB BLOOD ORDERABLES Courtney l Result CONVERTED [...] a test for HCV RNA (test code 03350) is suggested. ?? For additional information please refer to http://[employer].ZenMate/faq/XVR73n4 (This link is being provided for informational/ educational purposes only.) ?? 06/01/2022 10:4 9 AM EDT us Milla Castillo NP HISTORICAL/NON ORDERABLE LABS Final Result [facility] [address] * (ABNORMAL) LIPID PANEL, STANDARD (08/08/2021 9:18 AM EST) Chol/HDLC Ratio 3.7 <5.0 (calc) [facility] Cholesterol, Total 159 <200 mg/dL [facility] HDL Cholesterol 43(L) > OR = 50 mg/dL [facility] LDL Cholesterol 99 mg/dL (calc) [facility] Comment: Reference range: <100 ?? Desirable range <100 mg/dL for primary prevention; ?? <70 mg/dL for patients with CHD or diabetic patients ?? with > or = 2 CHD risk factors. ?? LDL-C is now calculated using the Cristobal-Roach ?? calculation, which is a validated novel method providing ?? better accuracy than the Friedewald equation in the ?? estimation of LDL-C. ?? Cristobal SEAMAN et al. DIONNE. 2013;310(19): 4382-1212 ?? (http://[employer].ZeroVM/faq/YYF016) Non-HDL Cholesterol 116 <130 mg/dL (calc) [facility] Comment: For patients with diabetes plus 1 major ASCVD risk ?? factor, treating to a non-HDL-C goal of <100 mg/dL ?? (LDL-C of <70 mg/dL) is considered a therapeutic ?? option. Triglycerides 78 <150 mg/dL [facility] 08/08/2021 9:18 AM EST us Milla Castillo STRAIGHTEDGE MACHINE OPERATOR HELPER LAB BLOOD ORDERABLES Final Res ult Performing Organization Address [facility] Co de Phone Number [facility] [address] * THINPREP TIS PAP (09/24/2020 12:00 [...] has been evaluated with computer assisted technology. [facility] Tank Cooper : SEE COMMENT [facility] Comment: SXA, CT(ASCP) CT screening location: [address] ??[address] Interpretation/R esult: Negative for intraepithelial lesion or malignancy. [facility] LMP: NONE [facility]IV[facility] Prev. BX: NONE [facility] Prev. PAP: NONE [facility]IV[facility] SOURCE: None given [facility] Statement Of Adequacy: SEE COMMENT [facility] Comment: Satisfactory for evaluation. Endocervical/transformation zone component absent. Age and/or menstrual status not provided 09/24/2020 us Historical Provider MD LAB PATHOLOGY ORDERABLES Final Result Performing Organization Address [facility] Co de Phone Number [facility] [address] * HPV mRNA E6/E7 (09/24/2020 12:00 AM EST) HPV nRNA E6/E7 Not Detected Not Detected [facility] Comment: This test was performed using the APTIMA HPV Assay ([employer] This assay detects E6/E7 viral messenger RNA (mRNA) from 14 high-risk HPV types (16,18,31,33,35,39,45,51,52,56,58,59,66,68). ?? The analytical performance characteristics of this assay have been determined by [employer]. The modifications have not been cleared or approved by the FDA. This assay has been validated pursuant to the CLIA regulations and is used for clinical purposes. 09/24/2020 us Historical Provider LAB BLOOD ORDERABLES Courtney reed Result [facility] [address] from Last 3 Months or Most Recently Relevant to Health Maintenance Insurance [facility] Care Teams Management Liaison Relationship Specialty Start Date End Date Fely Bey FNP [address] [place] [address] PCP - General Family Medicine 05/20/22
--- OUTSIDE RECORDS SUMMARY | 2024-11-08 09:18 | XMS_ITS | Encounter Summary ---
Author Organization [employer] Address 75 [facility] 7 [place] [address] Care Team Providers Care Mercantile Agent Name Role Phone Fely Bey Primary Care Provider [phone] Reason for Visit * Reason Onset Date Comments Med Refill 05/23/2024 Encounter Details Date Type Department Care Team (Late st Contact Info) Description 05/23/2024 Refill [facility] [address] [place], [place] [phone] Fely Bey FNP [address] [place], [place] [phone] Class 3 severe obesity without serious comorbidity [...] documented as of this encounter Care Teams Mercantile Agent Relationship Specialty Start Date End Date Fely Bey FNP [address] [place] [phone] PCP - General Family Medicine 05/20/22 documented as of this encounter
[2024-11-08] MEDS: iohexoL 350 MG/ML 100 ML INFUS..BTL IV (11:47)
[2024-11-08] MEDS: Barium Sulfate Oral (Mocha) 450 ML ORAL.SUSP PO ×2 (11:47→11:48)
== END 2024-11-08 09:06 | disposition home or self-care (01) ==
LOC: HO.CT 09:05
PROVIDERS: PCP Registered Nurse; Visit Provider Internal Medicine
DX: R10.32 Left lower quadrant pain (principal)
CPT/HCPCS: 74177; Q9967

== ENCOUNTER → 2024-11-08 09:07 | Outpatient (BNV) | payer OTHER, SELFPAY | PROVIDERS: PCP Registered Nurse; Visit Provider Radiology Diagnostic Radiology | DX: R10.31 Right lower quadrant pain (principal) | CPT/HCPCS: 74177 ==

== ENCOUNTER 2024-12-26 08:49 | Outpatient (REF) | payer OTHER, SELFPAY ==
--- NOTE | 2024-12-26 08:52 | EMG_ITS ---
Bilateral median and ulnar motor and sensory studies were performed. Bilateral radial sensory and median and lateral antecubital brachial sensory studies were performed, and paraspinal muscles were tested with a needle. IMPRESSION: 1. Mild bilateral ulnar neuropathy across cubital tunnel. 2. Mild bilateral median neuropathy across carpal tunnel. MD ARTURO Calderon/VANESSA / [id number]
--- OUTSIDE RECORDS SUMMARY | 2024-12-26 09:24 | XMS_ITS | Encounter Summary ---
Author Organization [employer] Address 75 [facility] 7 [place] [address] Care Team Providers Care Federal Appellate Clerk Name Role Phone Fely Bey Primary Care Provider [phone] Reason for Visit * Reason Comments Med Refill Encounter Details Date Type Department Care Team (Late st Contact Info) Description 07/17/2024 Refill [facility] [address] [place] [address] Fely Bey FNP [address] [place], [place] [phone] Class 3 severe obesity due to excess [...] documented as of this encounter Care Teams Federal Appellate Clerk Relationship Specialty Start Date End Date Fely Bey FNP [address] [place] [address] PCP - General Family Medicine 05/20/22 documented as of this encounter
--- OUTSIDE RECORDS SUMMARY | 2024-12-26 09:24 | XMS_ITS | Encounter Summary ---
Author Organization [employer] Address 75 [facility] 7 [place] [address] Care Team Providers Care Health And Wellness Coach Name Role Phone Fely Bey Primary Care Provider [phone] Reason for Visit * Reason Comments Med Refill Encounter Details Date Type Department Care Team (Late st Contact Info) Description 04/14/2023 Refill [facility] [address] [place] [address] Fely Bey FNP [address] [place], [place] [phone] Social History Tobacco Use Types Packs/Day Years [...] on filedocumented in this encounter Care Teams Health And Wellness Coach Relationship Specialty Start Date End Date Fely Bey FNP [address] [place] [address] PCP - General Family Medicine 05/20/22 documented as of this encounter
--- OUTSIDE RECORDS SUMMARY | 2024-12-26 09:24 | XMS_ITS | Encounter Summary ---
Author Organization [employer] Address 75 [facility] 7t [place] [address] Care Team Providers Care Preparer Samples And Repairs Name Role Phone Fely Bey Primary Care Provider [phone] Reason for Visit * Reason Onset Date Comments Med Refill 08/10/2024 Encounter Details Date Type Department Care Team (Late st Contact Info) Description 08/10/2024 Refill [facility] [address] [place] [address] Fely Bey FNP [address] [place], [place] [phone] Class 3 severe obesity due to excess [...] documented as of this encounter Care Teams Preparer Samples And Repairs Relationship Specialty Start Date End Date Fely Bey FNP [address] [place] [address] PCP - General Family Medicine 05/20/22 documented as of this encounter
--- OUTSIDE RECORDS SUMMARY | 2024-12-26 09:24 | XMS_ITS | Encounter Summary ---
Author Organization [employer] Address [address] [facility] [address] [place] [address] Care Team Providers Care Lawn Maintenance Worker Name Role Phone Fely Bey Primary Care Provider [phone] Encounter Details Date Type Department Care Team (Late st Contact Info) Description 06/28/2024 Orders Only [facility] MEDICINE [address] [place] [address] Fely Bey FNP [address] [place] [address] Class 3 severe obesity due to excess [...] documented as of this encounter Care Teams Lawn Maintenance Worker Relationship Specialty Start Date End Date Fely Bey FNP [address] [place] [id number] PCP - General Family Medicine 05/20/22 documented as of this encounter
--- OUTSIDE RECORDS SUMMARY | 2024-12-26 09:24 | XMS_ITS | Encounter Summary ---
Author Organization [employer] Address [address] [facility] [address] [place] [address] Care Team Providers Care Urgent Care Name Role Phone Fely Bey Primary Care Provider [phone] Reason for Visit * Reason Onset Date Comments ER Follow-up 08/10/2023 Encounter Details Date Type Department Care Team (Late st Contact Info) Description 08/10/[address] [facility] MEDICINE [address] [place] [address] Fely Bey FNP [address] [place], [place] [phone] ER Follow-up Social History Tobacco Use Types [...] regarding message below. Pt states going to [facility] ED on 08/08/23 for R sided lower [...] to go to ED. Pt agrees to [facility] appt tomorrow with provider to discuss further POC. ED notes printed and sent to scan. * Telephone Encounter - Christo López - 08/10/2023 8:25 AM EST Tc from patient requesting a ER follow up appt was in the ER at [facility] on 08/08 for lower back pain. If possible to contact patient after 2 pm after work. documented in this encounter Plan of Treatment Not on file documented as of this encounter Visit Diagnoses Not on filedocumented in this encounter Care Teams Urgent Care Relationship Specialty Start Date End Date Fely Bey FNP [address] [place] [address] PCP - General Family Medicine 05/20/22 documented as of this encounter
--- OUTSIDE RECORDS SUMMARY | 2024-12-26 09:24 | XMS_ITS | Encounter Summary ---
Author Organization [employer] Address [address] [facility] 7 [place] [address] Care Team Providers Care Vocational Rehabilitation Technician Name Role Phone Fely Bey Primary Care Provider [phone] Encounter Details Date Type Department Care Team ([facility] st Contact Info) Description 07/31/2024 Orders Only [facility]S [address] [place], [place] [phone] Fely Bey FNP [address] [place], [place] [phone] Social History Tobacco Use Types Packs/Day Years [...] documented as of this encounter Care Teams Vocational Rehabilitation Technician Relationship Specialty Start Date End Date Fely Bey FNP [address] [place] [id number] PCP - General Family Medicine 05/20/22 documented as of this encounter
--- OUTSIDE RECORDS SUMMARY | 2024-12-26 09:25 | XMS_ITS | Clinical Summary ---
Author Organization [facility] Address [address] [facility] 7t [place] [address] Care Team Providers Care Lithopone Mill Worker Name Role Phone Fely Bey IZZY Primary Care Provider [phone] Allergies No known active allergies Medications cholecalciferol (Vitamin D3) 25 MCG (1000 UT) tabletIndications :Vitamin D insufficiency Take 1 tablet (25 mcg) by mouth Once daily. 90 tablet 3 01/12/20 24 Active cyanocobalamin (Vitamin B-12) 1000 MCG tabletIndications :Vitamin B12 deficiency Take 1 tablet (1,000 mcg) by mouth Once per day. 90 tablet 1 07/17/20 24 025 Active D-MANNOSE PO Take by mouth. Over the counter supplement: O-POSITIVE. Contains Vit C, D-mannose, and Cranberry extract Active Semaglutide-Weigh t Management (Wegovy) 2.4 MG/0.75ML solution auto-injector Inject 2.4 mg subcutaneously weekly 3 mL 3 11/09/19 25 Active Chelsea 30 MG tablet TAKE 1 TABLET SOON POSSIBLE WITHIN 5 DAYS AFTER UNPROTECTED SEX OR IF YOU HAD A CONTROL FAILURE. MAY BE TAKEN WITH OR WITHOUT FOOD. 1 tablet 3 11/21/19 25 Active Active Problems Problem Noted Date Diagnosed Date [...] Overview (09/27/2024): Lab Results Component Value Date [id number] 25.8 (L) 07/12/2024 [id number] 16.1 (L) 01/06/2024 [id number] 13.4 12/24/2022 Continues with Vit D 1000 [...] Encounters Date Type Department Care Team Description 11/19/2024 Refill [facility] [address] [place] [phone] Fely Bey FNP 10/19/2024 Telephone [facility] [address] [place] [address] Ines Soares, training and development head Orders 10/18/2024 1:00 PM EST Office Visit [facility] [address] [place] [phone] Phalyeyo Fely, PLASTIC TUBING INSULATION SUPERVISOR Urinary symptom or sign (Primary Dx); Genital lesion, female; Vaginal itching 10/18/2024 Orders Only [facility] [address] [place] [address] Fely Bey, PLASTIC TUBING INSULATION SUPERVISOR 10/18/2024 Travel 10/18/2024 Telephone [facility] [address] [place] [address] Columba Valencia MA Chart Prep 10/13/2024 Refill [facility] [address] [place] [address] PhalFely orona, PLASTIC TUBING INSULATION SUPERVISOR Vitamin B12 deficiency 10/11/2024 Orders Only [facility] [address] [place], [place] [phone] Phalyeyo Fely, PLASTIC TUBING INSULATION SUPERVISOR Urinary symptom or sign (Primary Dx); Class 3 severe obesity without serious comorbidity with body mass index (BMI) of 40.0 to 44.9 in adult, unspecified obesity type (CMS/HCC) 10/05/2024 Refill [facility] [address] [place] [address] Fely Bey, PLASTIC TUBING INSULATION SUPERVISOR Class 3 severe obesity without serious comorbidity with body mass index (BMI) of 40.0 to 44.9 in adult, unspecified obesity type ([facility]/HCC) 10/02/2024 5:20 PM EST Office Visit [facility] [address] [place] [phone] Jessica Hathaway MD Left upper quadrant abdominal pain (Primary Dx); Left lower quadrant abdominal pain 10/02/2024 Travel 09/27/2024 9:15 AM EST Office Visit [facility] [address] [place] [phone] Fely Bey, PLASTIC TUBING INSULATION SUPERVISOR Class 3 severe obesity due to excess calories without serious comorbidity with body mass index (BMI) of 45.0 to 49.9 in adult ([facility]/HCC) (Primary Dx); Vitamin D insufficiency; Healthcare maintenance; Joint pain in both hands; Dietary counseling; Exercise counseling 09/27/2024 Travel from Last 3 Months Immunizations Name [...] Additional history exists IPV Vaccines Completed 09/20/1996, 0 09/1993, 1992, Additional history exists HPV Vaccines [...] Procedure Name Priority Date/Time Associated Diagnosis Comments CT ABDOMEN PELVIS W CONTRAST Urgent 11/08/2024 11:24 AM EST Left lower quadrant abdominal pain C-REACTIVE PROTEIN Routine 11/01/2024 8: 07 AM [...] Recently Relevant to Health Maintenance Results * CT Abdomen Pelvis w/ Contrast (11/08/2024 11:24 AM EST) Anatomical Region Laterality Modality Body, Pelvis, Abdomen Computed T omography 11/08/2024 11:2 4 AM EST Narrative 11/08/2024 11:58 AM EST ? [facility] ?[address] ?[place] [address] ? CT Scan Report ? Signed ? Patient: Joyce Peters ?MR# ?? : [id number] ? : 1990 ?Acct:[id number] ? Age/Sex: 34 / F ?ADM Date: 11/08/24 ? Loc: HO.CT ? Attending Dr: Jessica Hathaway MD ? Ordering Physician: Jessica Hathaway MD ?? Date of Service: 11/08/24 ?? Procedure(s): CT abdomen pelvis w IV con ?? Accession Number(s): [id number] ? cc: Jessica Hathaway MD; Fely Bey PLASTIC TUBING INSULATION SUPERVISOR ? Report Number: ?? [id number]: Total DLP = ??682.00 mGy-cm ?? EXAMINATION: ?? CT ABDOMEN AND PELVIS WITH CONTRAST ? CLINICAL INFORMATION: ?? Right lower quadrant abdominal pain. ? COMPARISON: ?? 12/24/2017. ? TECHNIQUE: ?? Multidetector volumetric images were obtained from the superior aspect ?? of the liver through the pubic symphysis following administration 85 mL ?? of Omnipaque 350 intravenous contrast. Sagittal and coronal reformatted ?? images were obtained on the technologist's workstation. ? Oral contrast: No ? This CT examination was performed using dose optimization techniques as ?? appropriate, variously including the following: ?? *Automated exposure control ?? *Adjustment of mA and/or kV according to patient size (this includes ?? techniques or standardized protocols for targeted exams where dose is ?? matched to indication/reason for exam; i.e. extremities or head) ?? *Use of iterative reconstruction technique ? FINDINGS: ?? LUNG BASES: The visualized lung bases are unremarkable. ? LIVER, GALLBLADDER, AND BILIARY TREE: The liver is normal in size, ?? shape, and attenuation. No focal hepatic lesion or biliary ductal ?? dilatation is present. The gallbladder is unremarkable with no evidence ?? of radiopaque gallstones, gallbladder wall thickening, or obvious ?? pericholecystic inflammatory changes. ? PANCREAS: Unremarkable. ? SPLEEN: Unremarkable. ? ADRENAL GLANDS: Unremarkable. ? KIDNEYS AND URETERS: The kidneys are normal in size, shape, and ?? attenuation. No hydronephrosis, hydroureter, or calculi seen. No ?? perinephric stranding. ? BLADDER: Unremarkable. ? GASTROINTESTINAL TRACT: ?? The small and large bowel are unremarkable. The appendix is ?? unremarkable. ? Prior gastric sleeve surgery. ? ABDOMINAL WALL: No significant hernia is appreciated. ? LYMPH NODES: Normal. ? VASCULAR: Unremarkable. ? PELVIC VISCERA: The uterus and adnexa are unremarkable. ? OSSEOUS STRUCTURES: No suspicious lytic or blastic bone lesions. ? CT/CT abdomen pelvis w IV con ?? IMPRESSION: ?? 1. No acute findings in the abdomen or pelvis. ? Electronically signed by: ??Maximus Ivory MD ??11/08/2024 11:54 AM EST RP ? Dictated By: ?Maximus Ivory MD ? Signed By: ?<Electronically signed by Maximus Ivory MD in OV> ?11/08/24 1154 ? DD/ 1124 ? TD/TT: 11/08/24 1146 ? Rubber Stamp Die Inspector: ? Procedure Note Donotuseinterpreter, Image - 11/08/[address] [address] [address] Scan Report Signed Patient: Leelee Peters# : [id number] : 1990Acct:[id number] Age/Sex: 34 / FADM Date: 11/08/24 Loc: HO.CT Attending Dr: Jessica Hathaway MD Ordering Physician: Jessica Hathaway MD Date of Service: 11/08/24 Procedure(s): CT abdomen pelvis w IV con Accession Number(s): [id number] cc: Jsesica Hathaway MD; Fely Bey [facility] Report Number: [id number]: Total DLP = 682.00 mGy-cm EXAMINATION: CT ABDOMEN AND PELVIS WITH CONTRAST CLINICAL INFORMATION: Right lower quadrant abdominal pain. COMPARISON: 12/24/2017. TECHNIQUE: Multidetector volumetric images were obtained from the superior aspect of the liver through the pubic symphysis following administration 85 mL of Omnipaque 350 intravenous contrast. Sagittal and coronal reformatted images were obtained on the technologist's workstation. Oral contrast: No This CT examination was performed using dose optimization techniques as appropriate, variously including the following: *Automated exposure control *Adjustment of mA and/or kV according to patient size (this includes techniques or standardized protocols for targeted exams where dose is matched to indication/reason for exam; i.e. extremities or head) *Use of iterative reconstruction technique FINDINGS: LUNG BASES: The visualized lung bases are unremarkable. LIVER, GALLBLADDER, AND BILIARY TREE: The liver is normal in size, shape, and attenuation. No focal hepatic lesion or biliary ductal dilatation is present. The gallbladder is unremarkable with no evidence of radiopaque gallstones, gallbladder wall thickening, or obvious pericholecystic inflammatory changes. PANCREAS: Unremarkable. SPLEEN: Unremarkable. ADRENAL GLANDS: Unremarkable. KIDNEYS AND URETERS: The kidneys are normal in size, shape, and attenuation. No hydronephrosis, hydroureter, or calculi seen. No perinephric stranding. BLADDER: Unremarkable. GASTROINTESTINAL TRACT: The small and large bowel are unremarkable. The appendix is unremarkable. Prior gastric sleeve surgery. ABDOMINAL WALL: No significant hernia is appreciated. LYMPH NODES: Normal. VASCULAR: Unremarkable. PELVIC VISCERA: The uterus and adnexa are unremarkable. OSSEOUS STRUCTURES: No suspicious lytic or blastic bone lesions. CT/CT abdomen pelvis w IV con IMPRESSION: 1. No acute findings in the abdomen or pelvis. Electronically signed by: Maximus Ivory MD 11/08/2024 11:54 AM EST Dictated By: Maximus Ivory MD Signed By: <Electronically signed by Maximus Ivory MD in OV> 11/08/24 1154 DD/ 1124 TD/TT: 11/08/24 1146 Rubber Stamp Die Inspector: us Jessica Hathaway MD IMG CT PROCEDURES Final Res ult * Vitamin D, 25-Hydroxy, Total, Immunoassay (11/01/2024 8:07 AM EST) Vitamin D 25-OH Total 31.9 >30 ng/mL [facility] Comment:Health Based Referen ce Values*< 20 ng/mL Vavyffexb06-31 ng/mL Insufficient> 30 ng/mL Sufficient*Nithya MONTILLA. N Engl J Med. 2007;357:266-280Care must [...] 11/01/2024 8:07 AM EST us Fely Bey PLASTIC TUBING INSULATION SUPERVISOR LAB BLOOD ORDERABLES Final Res ult [facility] [address] [place] [phone] * Vitamin B12/Folate, Serum Panel (11/01/2024 8:07 AM EST) Vitamin B12 516 200 - 900 pg/mL [facility] Comment:NORMAL 200-900 PG/ML INDETERMINATE 160-199 PG/ML DEFICIENT < 160 PG/ML Folate 6.6 > or = 4.0 ng/mL [facility] Comment:Reference Values:> o r = 4.0 ng/mL< 4.0 ng/mL suggests folate deficiency Methotrexate, aminopterin and folinic acid(leucovorin) are chemotherapeutic agents whose molecularstructures are similar to folate; therefore, the Architectfolate assay cannot be used for patients using these drugs. Blood Venous blood specimen / Unknown 11/01/2024 8:07 AM EST 11/01/2024 8:07 AM EST Fely Bey [facility] LAB BLOOD ORDERABLES Final Res ult Performing Organization Address [facility] Co de Phone Number [facility] [address] [place] [phone] * Sed Rate by Modified Westergren (11/01/2024 8:07 AM EST) Pathologist [facility] Erythrocyte Sedimentation Rate 11 0 - 20 MM/HR [facility] Comment:Patients with polycy themia and many hemoglobin abnormalitiesmay have depressed sed rates whereas patients with anemiamay have elevated sed rates. Blood Venous blood specimen / Unknown 11/01/2024 8:07 AM EST 11/01/2024 8:07 AM EST Fely Bey [facility] LAB BLOOD ORDERABLES Final Res ult Performing Organization Address [facility] Co de Phone Number [facility] [address] [place] [phone] * Rheumatoid Factor (11/01/2024 8:07 AM EST) Pathologist [facility] Rheumatoid Factor <13.0 <15.0 IU/mL [facility] Blood Venous blood specimen / Unknown 11/01/2024 8:07 AM EST 11/01/2024 8:07 AM EST Fely Bey [facility] LAB BLOOD ORDERABLES Final Res ult Performing Organization Address [facility]/ZIP Co de Phone Number [facility] [address] [place] [address] [phone] * C-reactive Protein (11/01/2024 8:07 AM EST) C Reactive Protein 0.23 < or = 0.50 mg/dL [facility] Blood Venous blood specimen / Unknown 11/01/2024 8:07 AM EST 11/01/2024 8:07 AM EST Fely Bey [facility] LAB BLOOD ORDERABLES Final Res ult Performing Organization Address [facility] Co de Phone Number [facility] [address] [place] [address] [phone] * JOSE Screen,IFA, with Reflex to Titer and Pattern (11/01/2024 8:07 AM EST) Anti Nuclear Antibody Screen NEGATIVE NEGATIVE [facility] Comment:JOSE IFA is a first [...] clinicallysuspected inflammatory myopathies.AC-0: NegativeInternational Consensus on JOSE Patterns(https://doi.org/10.1515/slqs-8260-3519)For additional information, please refer tohttp://education.TwoChop/faq/WQV902(This link is being provided for informational/educational purposes only.)THIS TEST WAS PERFORMED AT:[facility] [place] [id number] CLARK MD JOSE Titer [facility] JOSE Pattern [facility] JOSE TITER 2 (REF LAB) [facility] JOSE Pattern 2 [facility] JOSE TITER 3 [facility] JOSE PATTERN 3 [facility] Blood Venous blood specimen / Unknown 11/01/2024 8:07 AM EST 11/01/2024 8:[address] [facility] LAB BLOOD ORDERABLES Final Res ult [facility] [address] [place] [phone] * POCT Urine (10/18/2024 2:32 PM EST) Preg Test, Ur Negative Negative, Indeterminate, None Detected, Invalid, Specimen unsatisfactory for evaluation, Weakly Positive QC Media Lot # [id number] Lot# Expiration Date , Urine 10/18/2024 2:32 PM EST Fe[facility] POINT OF CARE TEST ENTER/EDIT ORDERABLES [...] Date ,025 Urine 10/18/2024 2:32 PM EST Fely Phalen PLASTIC TUBING INSULATION SUPERVISOR POINT OF CARE TEST ENTER/EDIT ORDERABLES Final Result * Cancelled Urine (10/18/2024 1:59 PM EST) Cancelled Urine SEE NOTE [facility] Comment:THE FOLLOWING TESTS WERE CANCELLED: UACC W MICROSREASON: UNLABELED SPECIMAN RECIEVED 10/18/2024 1:59 PM EST 10/18/2024 4:51 PM EST Fely [facility] HISTORICAL/NON ORDERABLE LABS Final Result Performing Organization Address [facility] Co de Phone Number [facility] [address] [place] [phone] * (ABNORMAL) Bacterial Vaginosis (10/18/2024 1:59 PM EST) TRICHOMONAS VAGINALIS DETECTION BY PCR NOT DETECTED Not Detect [facility] BACTERIAL VAGINOSIS DETECTION BY PCR POSITIVE(A) Negative [facility] Comment:The BV organism targ ets [...] GROUP DETECTION BY PCR DETECTED(A) Not Detect [facility] Clari glab krusei PCR NOT DETECTED Not Detect [facility] Swab Vaginal structure / Unknown 10/18/2024 1:59 PM EST 10/18/2024 4:51 PM EST us Fely MAG[facility] LAB MICROBIOLOGY - GENERAL ORD ERABLES Final Result Performing Organization Address [facility]/ZIP Co de Phone Number [facility] [address] [place] [phone] * (ABNORMAL) Herpes Simplex Virus Culture with Reflex Typing (10/18/2024 1:59 PM EST) HSV Culture/Type SEE NOTE(A) [facility] Comment:HERPES SIMPLEX VIRUS CULTURE W/RFL TO TYPING Micro Number: [id number] Test Status: Final Specimen Source: Not given Specimen Quality: Adequate HSV Culture: Isolated HSV TYPE 2: Not Isolated HSV TYPE 1: IsolatedTHIS TEST WAS PERFORMED AT:[facility] [id number] MERATI,MD Swab (Lesion) 10/18/2024 1:5 9 PM EST 10/18/2024 4:51 PM EST Fely Bey [facility] LAB MICROBIOLOGY - GENERAL ORD ERABLES Final Result [facility] [address] [place] [phone] * Chlamydia/N. Gonorrhoeae RNA, TMA, Urogenitial (10/18/2024 1:59 PM EST) CT PCR NOT DETECTED Not Detect. [facility] Comment:A not detected test result [...] psychologicalconsequences. NG PCR NOT DETECTED Not Detect. [facility] Comment:A not detected test result [...] PM EST 10/18/2024 4:51 PM EST Narrative [facility] - 10/19/2024 11:06 AM EST Vaginal Fely Bey [facility] LAB MICROBIOLOGY - GENERAL ORD ERABLES Final Result [facility] [address] [place] [phone] * HIV 1/2 ANTIGEN/ANTIBODY,FOURTH GENERATION W/RFL [...] ? For additional information please refer to http://education.Strands/faq/ZDS047 (This link is being provided for informational/ educational purposes only.) ? The performance of this assay has not been clinically validated in patients less than 2 years old. ?? 07/20/2022 11:5 2 AM EDT us Yaritza Aranda CNM LAB BLOOD ORDERABLES Courtney l Result Performing Organization Address City/[facility]/ZIP Co de Phone Number [facility] * HEPATITIS C AB W/REFL TO HCV RNA, QN, PCR (06/01/2022 10:49 AM EDT) Pathologist [facility] HEPATITIS C ANTIBODY NON-REACT [facility] NON-REACT [facility] INDEX 0.08 <1.00 [facility] Comment: ?? HCV antibody was non-reactive. There is no laboratory ?? evidence of HCV infection. ?? In most cases, no further action is required. However, if recent HCV exposure is suspected, a test for HCV RNA (test code 27757) is suggested. ?? For additional information please refer to http://TC Website Promotions.Strands/faq/XMA36x1 (This link is being provided for informational/ educational purposes only.) ?? 06/01/2022 10:4 9 AM EDT Milla Castillo NP HISTORICAL/NON ORDERABLE LABS Final Result Performing Organization Address City/[facility] Co de Phone Number [facility] [address] * (ABNORMAL) LIPID PANEL, STANDARD (08/08/2021 9:18 AM EST) Pathologist [facility] Chol/HDLC Ratio 3.7 <5.0 (calc) [facility] Cholesterol, Total 159 <200 mg/dL [facility] HDL Cholesterol 43(L) > OR = 50 mg/dL [facility] LDL Cholesterol 99 mg/dL (calc) [facility] Comment: Reference range: <100 ?? [...] the ?? estimation of LDL-C. ?? Cristobal SS et al. DIONNE. 2013;310(19): 7708-7808 ?? (http://education.TwoChop/faq/ANP706) Non-HDL Cholesterol 116 <130 mg/dL (calc) [facility] Comment: For patients with diabetes plus 1 major ASCVD risk ?? factor, treating to a non-HDL-C goal of <100 mg/dL ?? (LDL-C of <70 mg/dL) is considered a therapeutic ?? option. Triglycerides 78 <150 mg/dL [facility] 08/08/2021 9:18 AM EST us Milla Castillo NP LAB BLOOD ORDERABLES Final Res ult [facility] [address] [place] [address], * THINPREP TIS PAP (09/24/2020 12:00 AM EST) Clinical Information: None given [facility] COMMENT SEE COMMENT [facility] [...] has been evaluated with computer assisted technology. [facility] Logging Supervisor : SEE COMMENT [facility] Comment: SXA, CT(ASCP) CT screening location: [address] ??[address] Interpretation/R esult: Negative for intraepithelial lesion or malignancy. [facility] LMP: NONE GIVEN [facility] Prev. BX: NONE GIVEN [facility] Prev. PAP: NONE GIVEN [facility] SOURCE: None given [facility] Statement Of Adequacy: SEE COMMENT [facility] Comment: Satisfactory for evaluation. Endocervical/transformation zone component absent. Age and/or menstrual status not provided 09/24/2020 Historical Provider MD LAB PATHOLOGY ORDERABLES Final Result Performing Organization Address [facility] de Phone Number [facility] [address] * HPV mRNA E6/E7 (09/24/2020 12:00 AM EST) HPV nRNA E6/E7 Not Detected Not Detected [facility] Comment: This test was performed using the APTIMA HPV Assay ([employer] This assay detects E6/E7 viral messenger RNA (mRNA) from 14 high-risk HPV types (16,18,31,33,35,39,45,51,52,56,58,59,66,68). ?? The analytical performance characteristics of this assay have been determined by [employer]. The modifications have not been cleared or approved by the FDA. This assay has been validated pursuant to the CLIA regulations and is used for clinical purposes. 09/24/2020 Historical Provider MD LAB BLOOD ORDERABLES Courtney l Result Performing Organization Address [facility] de Phone Number [facility] [address] from Last 3 Months or Most Recently Relevant to Health Maintenance Insurance [facility] Care Teams Lithopone Mill Worker Relationship Specialty Start Date End Date Fely Bey FNP [address] [place] [phone] PCP - General Family Medicine 05/20/22
--- OUTSIDE RECORDS SUMMARY | 2024-12-26 09:25 | XMS_ITS | Encounter Summary ---
Author Organization [employer] Address [address] [facility] 7 [place] [address] Care Team Providers Care Business Continuity Analyst Name Role Phone Fely Bey Primary Care Provider [phone] Reason for Visit * Reason Onset Date Comments Med Refill 05/23/2024 Encounter Details Date Type Department Care Team (Late st Contact Info) Description 05/23/2024 Refill [facility] [address] [place], [place] [phone] Fely Bey FNP [address] [place], [place] [phone] Class 3 severe obesity without serious comorbidity [...] documented as of this encounter Care Teams Business Continuity Analyst Relationship Specialty Start Date End Date Fely Bey FNP [address] [place] [phone] PCP - General Family Medicine 05/20/22 documented as of this encounter
== END 2024-12-26 08:50 | disposition home or self-care (01) ==
LOC: HO.NEURO 08:49
PROVIDERS: PCP Registered Nurse; Visit Provider Registered Nurse
DX: G56.13 Other lesions of median nerve, bilateral upper limbs (principal); G56.23 Lesion of ulnar nerve, bilateral upper limbs
CPT/HCPCS: 95860; 95886; 95913

== ENCOUNTER 2025-03-12 15:47 | Outpatient (REF) | payer OTHER, SELFPAY ==
[2025-03-12 15:57] LABS: MANUAL DIFF FLAG NO
[2025-03-12 16:00] LABS: Basophils Percent Auto 0.5 % (0-2); Eosinophils Percent Auto 0.5 % (0-4); Hematocrit 36.3 % (37.0-47.0); Hemoglobin 11.5 g/dl (12.0-16.0); Imm Gran Abs Auto 0.01 X10*3/uL (0.00-0.03); Imm Gran Pct Auto 0.1 % (0.0-0.4); Lymphocytes Absolute Auto 1.8 X10*3/uL (1.2-4.9); Lymphocytes Percent Auto 23.6 % (20-40); Mean Corpuscular HGB Conc 31.7 g/dl (31.0-35.0); Mean Corpuscular Hemoglobin 26.7 pg (27.0-33.0); Mean Corpuscular Volume 84.4 fL (80.0-98.0); Mean Platelet Volume 11.1 fL (9.4-12.3); Monocytes Absolute Auto 0.4 X10*3/uL (0.1-1.2); Monocytes Percent Auto 5.2 % (2-11); Neutrophils Absolute Auto 5.3 x10*3/uL (2.0-8.3); Neutrophils Percent Auto 70.1 % (45-73); Platelet Count 269 X10*3/uL (160-400); Red Cell Distribution Width 14.4 % (11.0-16.0); White Blood Count 7.5 X10*3/uL (4.8-10.8)
[2025-03-12 16:23] LABS: Iron 37 mcg/dL (30-160); Percent Iron Saturation 13 % (15-50); Total Iron Binding Capacity 286 mcg/dL (228-428); Unsaturated Iron Binding 249 ug/dL
[2025-03-12 16:37] LABS: Ferritin 12 ng/mL (10-122); Vitamin D 25-OH Total 17.8 ng/mL (>30)
[2025-03-12 16:46] LABS: Vitamin B12 241 pg/mL (200-900)
--- OUTSIDE RECORDS SUMMARY | 2025-03-12 17:16 | XMS_ITS | Encounter Summary ---
Author Organization [employer] Address [address] [place] [address] Care Team Providers Care Ict Support And Test Engineers Name Role Phone Fely Bey Primary Care Provider [phone] Reason for Visit * Reason Comments Med Refill Encounter Details Date Type Department Care Team ([facility] st Contact Info) Description 02/05/[address] [facility] [address] [place] [address] Fely Bey FNP [address] [place], [place] [phone] Social History Tobacco Use Types Packs/Day Years [...] as of this encounter Plan of Treatment Upcoming Encounters Date Type Department Care Team (Late st Contact Info) Description 03/28/2025 9:00 AM EDT Office Visit [facility] [address] [place] [address] Fely Bey FNP [address] [place] [address] documented as of this encounter Visit Diagnoses Not on filedocumented in this encounter Additional Health Concerns Assessment Noted Time PHQ-9 Depression Total Score: 5 09/27/19 25 3:46 PM EST documented as of this encounter Care Teams Ict Support And Test Engineers Relationship Specialty Start Date End Date Fely Bey FNP [address] [place] [address] PCP - General Family Medicine 05/20/22 documented as of this encounter
== END 2025-03-12 15:48 | disposition home or self-care (01) ==
LOC: HO.LAB 15:47
PROVIDERS: Visit Provider Registered Nurse
DX: Z00.00 Encounter for general adult medical examination without abnormal findings (principal); E55.9 Vitamin D deficiency, unspecified; E61.1 Iron deficiency
CPT/HCPCS: 36415; 82306; 82607; 82728; 83540; 85025

== ENCOUNTER 2025-04-10 10:54 | Outpatient (REF) | payer OTHER, SELFPAY ==
--- OUTSIDE RECORDS SUMMARY | 2025-04-10 12:09 | XMS_ITS | Encounter Summary ---
Author Organization [employer] Address [address] [address] Care Team Providers Care Inside Sales Account Manager Name Role Phone Fely Bey Primary Care Provider [phone] Reason for Visit * Reason Comments Med Refill Encounter Details Date Type Department Care Team (Late st Contact Info) Description 04/14/2023 Refill [facility] [address] [place] [address] Fely Bey FNP [address] [place] [address] Social History Tobacco Use Types Packs/Day Years [...] on filedocumented in this encounter Care Teams Inside Sales Account Manager Relationship Specialty Start Date End Date Fely Bey FNP [address] [place] [address] PCP - General Family Medicine 05/20/22 documented as of this encounter
== END 2025-04-10 10:55 | disposition home or self-care (01) ==
LOC: HO.LAB 10:54
PROVIDERS: Visit Provider Registered Nurse
DX: Z30.011 Encounter for initial prescription of contraceptive pills (principal)
CPT/HCPCS: 36415; 84702

== ENCOUNTER 2025-05-10 14:42 | Outpatient (AMB) | payer OTHER, SELFPAY ==
--- OUTSIDE RECORDS SUMMARY | 2025-05-10 14:46 | XMS_ITS | Encounter Summary ---
Author Organization [employer] Address [address] [address] Care Team Providers Care Theater Projectionist Name Role Phone Fely Bey Primary Care Provider [phone] Reason for Visit * Reason Comments Med Refill Encounter Details Date Type Department Care Team (Late st Contact Info) Description 04/14/2023 Refill [facility] [address] [place] [address] Fely Bey FNP [address] [place] [address] Social History Tobacco Use Types Packs/Day Years [...] on filedocumented in this encounter Care Teams Theater Projectionist Relationship Specialty Start Date End Date Fely Bey FNP [address] [place] [address] PCP - General Family Medicine 05/20/22 documented as of this encounter
[2025-05-10 14:50] VITALS: BMI 32.1
--- NOTE | 2025-05-10 14:50 | MHC.OFFVIS ---
Vital Signs 05/10/25 14:50 Height 5 ft 4 in Weight 187 lb BMI 32.1 Intake Visit Reasons: OV-Bilateral Carpal Tunnel-EMG done 12/26/24 Intake Note: Joyce is a 35 year old right hand dominant female who presents today as a new patient for evaluation of bilateral hand numbness and tingling. Per referring provider, wrist braces were ordered 03/28/25, Celebrex prescribed. Patient reports they equally bother her, primarily on her 3rd, 4th, and 5th digits. She also complains of bilateral middle finger PIP stiffness and swelling. No previous injuries or sugeries in the hands. Allergies No Known Allergies Allergy (Verified 05/10/25 14:57) HPI HPI OV-Bilateral Carpal Tunnel-EMG done 12/26/24: Details: Joyce is a 35 year old right hand dominant female who presents today as a new patient for evaluation of bilateral hand numbness and tingling. Per referring provider, wrist braces were ordered 03/28/25, Celebrex prescribed. Patient reports they equally bother her, primarily on her 3rd, 4th, and 5th digits. She also complains of bilateral middle finger PIP stiffness and swelling. No previous injuries or sugeries in the hands. [facility] Medical History Intestinal malabsorption following gastrectomy Morbid obesity Surgical History History of sleeve gastrectomy Hx of section Hx of removal of cyst Family History Mother No problems noted. Father No problems noted. Brother No problems noted. Brother No problems noted. Son No problems noted. Daughter No problems noted. 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 Good APB muscle firing and good finger cross. Vascular: Capillary refill brisk. ROM: Patient can make a fist and extend all their digits. Skin: No lacerations or abrasions noted. General: No ecchymosis. No erythema or evidence of infection. Results Reviewed Results Reviewed: IMPRESSION: 1. Mild bilateral ulnar neuropathy across cubital tunnel. 2. Mild bilateral median neuropathy across carpal tunnel. MD CHARLES CalderonK/VANESSA Assessment & Plan Assessment & Plan (1) Bilateral carpal tunnel syndrome: Code(s): G56.03 - Carpal tunnel syndrome, bilateral upper limbs Category: Medical (2) Cubital tunnel syndrome, bilateral: Code(s): G56.23 - Lesion of ulnar nerve, bilateral upper limbs Category: Medical Plan 1. Right cubital tunnel syndrome 2. Right carpal tunnel syndrome Symptoms intermittent, daily, worse at night I educated the patient about the condition. I discussed both operative and nonoperative treatment options. The patient would like to proceed with surgery. The risks and benefits of operative treatment were discussed with the patient and the patient wishes to proceed with surgery. These risks include, but are not limited to, risk of damage to blood vessels, nerves, tendons, infection, recurrence, incomplete relief of preoperative symptoms, persistent pain, possible need for further surgery, and the risks associated with regional blocks and/or anesthesia. Plan is to take the patient to the operating room at some point in the next few weeks for the following procedures: 1. Right cubital tunnel release under general 2. Right carpal tunnel release under general All of the preoperative paperwork including the consent was discussed today. All of the patient's questions were answered in the clinic today. The patient understands that they will be in contact with our surgical manager to discuss scheduling their procedure. Patient denies diabetes, blood thinners, asthma, heart issues, lung issues, kidney issues, or current smoking. Coding Level of Care Code New Pt Level 4 (14255) Diagnoses Bilateral carpal tunnel syndrome G56.03 Cubital tunnel syndrome, bilateral G56.23
== END 2025-05-10 15:33 | disposition home or self-care (01) ==
LOC: HO.HOS 14:43
PROVIDERS: PCP Registered Nurse
DX: G56.03 Carpal tunnel syndrome, bilateral upper limbs (principal); G56.23 Lesion of ulnar nerve, bilateral upper limbs
CPT/HCPCS: 99204

== ENCOUNTER → 2025-05-10 14:42 | Outpatient (BNVA) | payer OTHER, SELFPAY | PROVIDERS: PCP Registered Nurse | DX: G56.03 Carpal tunnel syndrome, bilateral upper limbs (principal); G56.23 Lesion of ulnar nerve, bilateral upper limbs | CPT/HCPCS: 99202 ==

== ENCOUNTER 2025-05-30 18:52 | Outpatient (REF) | payer OTHER, SELFPAY ==
--- OUTSIDE RECORDS SUMMARY | 2025-05-30 10:15 | XMS_ITS | Encounter Summary ---
Author Organization [employer] in 2014[employer] Address 75 [facility] 7 [place] [address] Care Team Providers Care Finance Administrator Name Role Phone Fely Bey Primary Care Provider [phone] Encounter Details Date Type Department Care Team (Latest Contact Info) Description 05/30/2025 10:15 AM EDT Office Visit [facility] [address] [place] [address] Fely Bey FNP [address] [place], [place] [phone] Temporomandibular joint click (Primary Dx); Sore throat; Cubital tunnel syndrome of both upper extremities; Bilateral carpal tunnel syndrome; Class 1 obesity with body mass index (BMI) of 34.0 to 34.9 in adult, unspecified obesity type, unspecified whether serious comorbidity present Social History Tobacco Use Types Packs/Day Years Used Date Smoking Tobacco: Never Smokeless Tobacco: Never Alcohol Use Standard Drinks/Week [...] Sign Reading Time Taken Comments Blood Pressure 102/80 05/30/2025 10:38 AM EDT Pulse 72 05/30/2025 10:38 AM EDT Temperature 36.1 C (96.9 F) 05/30/2025 10:38 AM EDT Respiratory Rate 12 05/30/2025 10:38 AM EDT Oxygen Saturation 99% 05/30/2025 10:38 AM EDT Inhaled Oxygen Concentration - - Weight 83.6 kg (184 lb 3.2 oz) 05/30/2025 10:38 AM EDT Height 160 cm (5' 3 ) 05/30/2025 10:38 AM EDT Body Mass Index 32.63 05/30/2025 10:38 AM EDT documented in this encounter Progress Notes * Fely Bey, IZZY - 05/30/2025 10:15 AM EDT Subjective: Joyce Adam is a 35 y.o. female who presents to the office for a sick visit - jaw clicking & sore throat. Interim History: - Last PCP visit: 03/28/25 - Weight management: insurance formulary now covering Zepbound instead of Wegovy. Reports doing well with current dosage. Continues with weight loss (13lbs weight loss in the past 2 months). Hiking multiple times per week. - [place] [facility] [place]. New patient for eval of bilateral hand numbness/tingling. Wrist braces ordered 03/28, Celebrex prescribed. She would like to proceed with surgery. Plan to proceed in the next few weeks for right cubital tunnel release and right carpal tunnel release under general anesthesia. Current concerns: - Experienced dry throat and mild burning sensation after hiking yesterday, persists today; keeps drinking water but throat still feels weird; denies other symptoms of URI. Plan to check rapid testing in office and sent resp viral panel to lab. - History of jaw misalignment after sleeping on hand, followed by pain for a few days; persistent jaw clicking sound since then, audible to others, no pain, no teeth grinding at night. - Occasionally needs to pop ears, sensation of water in ears, worsening over time, especially when talking and turning head Problem List[1] Surgical History[2] No Known Allergies Review of Systems Constitutional: Negative for chills and fever. HENT: Positive for sore throat. Cardiovascular: Negative for chest pain and palpitations. Gastrointestinal: Negative for diarrhea and vomiting. Genitourinary: Negative for urgency, vaginal bleeding, vaginal discharge and vaginal pain. Musculoskeletal: Positive for arthralgias. Skin: Negative for pallor and wound. Psychiatric/Behavioral: Negative for suicidal ideas. Visit Vitals BP 102/80 Pulse 72 Temp 96.9 ??F (36.1 ??C) (Temporal) Resp 12 Ht 5' 3 (1.6 m) Wt 184 lb 3.2 oz (83.6 kg) LMP 05/28/2025 (Approximate) SpO2 99% BMI 32.63 kg/m?? Smoking Status Never BSA 1.93 m?? Physical Exam Constitutional: Appearance: Normal appearance. HENT: Head: Atraumatic. Comments: Palpation of temporomandibular joints: bilateral clicking with mandibular movemen Right Ear: Tympanic membrane, ear canal and external ear normal. Left Ear: Tympanic membrane, ear canal and external ear normal. Mouth/Throat: Pharynx: Posterior oropharyngeal erythema (mild erythema posterior oropharynx) present. Cardiovascular: Rate and Rhythm: Normal rate and regular rhythm. Pulmonary: Effort: Pulmonary effort is normal. Breath sounds: Normal breath sounds. Neurological: Mental Status: She is alert and oriented to person, place, and time. Psychiatric: Mood and Affect: Mood normal. Behavior: Behavior normal. Problem List Items Addressed This Visit Endocrine and Metabolic Obesity Current Assessment & Plan - GLP1 start: March 2024 (initially Wegovy, then transitioned to [employer] d/t insurance formulary) - Initial weight: 263 lbs - Today's weight: 184 lbs - Has lost 79 lbs (30% initial body weight) since initiation. Good therapeutic response - Continue with tirzepatide subcutaneous 5mg weekly - Continue with nutrition and healthy lifestyle interventions Neuro Bilateral carpal tunnel syndrome Overview 12/26/24: EMG completed and demonstrated mild bilateral ulnar neuropathy across cubital tunnel and mild bilateral median neuropathy across carpal tunnel. Cont wrist splints [facility] [place] Apr 2025: plan to proceed with right cubital tunnel release and right carpal tunnel release under general anesthesia. Cubital tunnel syndrome of both upper extremities Overview 12/26/24: EMG completed and demonstrated mild bilateral ulnar neuropathy across cubital tunnel and mild bilateral median neuropathy across carpal tunnel. Cont wrist splints [facility] [place] consult Apr 2025: plan to proceed with right cubital tunnel release and right carpal tunnel release under general anesthesia. Other Visit Diagnoses Bilateral temporomandibular joint clicking - Primary - TMJ dysfunction with audible clicking, likely related to prior jaw misalignment. Associated intermittent ear symptoms due to anatomical proximity. - Recommended evaluation by dentist for TMJ concerns. Discussed option of ambulatory care coordinator for joint realignment if covered by insurance. Provided information on TMJ exercises for home management. Patient to reach out to dentist directly; referral for ambulatory care coordinator available if needed. Sore throat - Dry throat likely secondary to increased physical activity and exertion. No evidence of acute illness. - Ordered respiratory viral panel to rule out infectious etiology. Advised hydration and monitoringof symptoms. Relevant Orders POCT Rapid Influenza B MCDONALD ID NOW POCT Rapid Influenza A MCDONALD ID NOW POCT Rapid Covid-19 MCDONALD ID NOW POCT Rapid Strep A [facility] Respiratory Viral Panel PCR Follow up: per recall, sooner as needed [1] Patient Active Problem List Diagnosis Obesity Vitamin D insufficiency Iron deficiency Healthcare maintenance Joint pain in both hands Chest wall pain Bilateral carpal tunnel syndrome Cubital tunnel syndrome of both upper extremities [2] Past Surgical History: Procedure Laterality Date SECTION, UNSPECIFIED 2010, 2013 CONTRACEPTIVE CAPSULE REMOVAL Removal of IUD in OR SLEEVE GASTROPLASTY 2016 WISDOM TOOTH EXTRACTION documented in this encounter Miscellaneous Notes * Assessment & Plan Note - IZZY Samaniego - 05/30/2025 4:11 PM EDTAssociated Problem(s): Obesity Lab Results Component Value Date TSH 1.50 12/24/2022 - Last nutrition goal: transition from soda to carbonated water - GLP1 start: March 2024 (initially Wegovy, then transitioned to Zepbound d/t insurance formulary) - Initial weight: 263 lbs - Today's weight: 184 lbs - Has lost 79 lbs (30% initial body weight) since initiation. Good therapeutic response - Continue with tirzepatide 5mg weekly - Continue with nutrition and healthy lifestyle interventions documented in this encounter Plan of Treatment Scheduled Orders Name Type Priority Associated Diagnoses Orde r Schedule POCT Rapid Influenza B MCDONALD ID NOW Point of Care Testing Routine Sore throat Ordered: 05/30/2025 POCT Rapid Influenza A MCDONALD ID NOW Point of Care Testing Routine Sore throat Ordered: 05/30/2025 POCT Rapid Covid-19 CMDONALD ID NOW Point of Care Testing Routine Sore throat Ordered: 05/30/2025 POCT Rapid Strep A [facility] Point of Care Testing Routine Sore throat Ordered: 05/30/2025 Respiratory Viral Panel PCR Lab Routine Sore throat Expected: 05/30/2025 (Approximate), Expires: 05/30/2026 documented as of this encounter Visit Diagnoses Diagnosis Temporomandibular joint click- Primary Sore throat Acute pharyngitis Cubital tunnel syndrome of both upper extremities Bilateral carpal tunnel syndrome Carpal tunnel syndrome Class 1 obesity with body mass index (BMI) of 34.0 to 34.9 in adult, unspecified obesity type, unspecified whether serious comorbidity present documented in this encounter Additional Health Concerns Assessment Noted Time PHQ-9 Depression Total Score: 5 09/27/19 25 3:46 PM EST documented as of this encounter Care Teams Finance Administrator Relationship Specialty Start Date End Date Fely Bey FNP [address] [place] [address] PCP - General Family Medicine 05/20/22 documented as of this encounter
--- OUTSIDE RECORDS SUMMARY | 2025-05-30 18:56 | XMS_ITS | Encounter Summary ---
Author Organization [employer] Address 75 [facility] 7 [place] [address] Care Team Providers Care Medical Office Representative Name Role Phone Fely Bey Primary Care Provider [phone] Encounter Details Date Type Department Care Team ([facility] st Contact Info) Description 07/31/2024 Orders Only [facility] [address] [place], [place] [phone] Fely Bey FNP [address] [place], [place] [phone] Social History Tobacco Use Types Packs/Day Years [...] documented as of this encounter Care Teams Medical Office Representative Relationship Specialty Start Date End Date Fely Bey FNP [address] [place] [address] PCP - General Family Medicine 05/20/22 documented as of this encounter
--- OUTSIDE RECORDS SUMMARY | 2025-05-30 18:56 | XMS_ITS | Encounter Summary ---
Author Organization [employer] Address 75 [facility] 7 [place] [address] Care Team Providers Care Building Maintenance Supervisor Name Role Phone Fely Bey Primary Care Provider [phone] Reason for Visit * Reason Onset Date Comments ER Follow-up 08/10/2023 Encounter Details Date Type Department Care Team (Late st Contact Info) Description 08/10/2023 Telephone [facility] [address] [place] [address] Fely Bey FNP [address] [place] [address] ER Follow-up Social History Tobacco Use Types [...] regarding message below. Pt states going [place] [facility] [place]23 for R sided lower [...] to go to ED. Pt agrees [place] [facility] [place] with provider to discuss further POC. ED notes printed and sent to scan. * Telephone Encounter - Christo López - 08/10/2023 8:25 AM EST Tc from patient requesting a ER follow up appt was in the [place] [facility] [place]08 for lower back pain. If possible to contact patient after 2 pm after work. documented in this encounter Plan of Treatment Not on file documented as of this encounter Visit Diagnoses Not on filedocumented in this encounter Care Teams Building Maintenance Supervisor Relationship Specialty Start Date End Date Fely Bey FNP [address] [place] [address] PCP - General Family Medicine 05/20/22 documented as of this encounter
--- OUTSIDE RECORDS SUMMARY | 2025-05-30 18:56 | XMS_ITS | Encounter Summary ---
Author Organization [employer] Address 75 [facility] [address] [place] [address] Care Team Providers Care Garbage Collector Supervisor Name Role Phone Fely Bey IZZY Primary Care Provider [phone] Encounter Details Date Type Department Care Team (Latest Contact Info) Description 05/30/2025 Travel Social History Tobacco Use Types Packs/Day [...] documented as of this encounter Care Teams Garbage Collector Supervisor Relationship Specialty Start Date End Date Fely Bey FNP [address] [place] [address] PCP - General Family Medicine 05/20/22 documented as of this encounter
--- OUTSIDE RECORDS SUMMARY | 2025-05-30 18:56 | XMS_ITS | Encounter Summary ---
Author Organization [employer] Address 75 [facility] 7 [place] [address] Care Team Providers Care Electrical Parts Reconditioner Name Role Phone Fely Bey Primary Care Provider [phone] Reason for Visit * Reason Onset Date Comments CHART PREP 05/29/2025 Encounter Details Date Type Department Care Team (Late st Contact Info) Description 05/29/2025 Telephone [facility] MEDICINE [address] [place] [address] Fely Bey FNP [address] [place] [address] CHART PREP Social History Tobacco Use Types Packs/Day Years [...] encounter Miscellaneous Notes * Telephone Encounter - Girish Perez [place] - 05/29/2025 4:02 PM EDT Chart Prep Labs: done Images: done CT ABD 11/08/24 Referrals: complete f/u ortho pre-op 07/03/25 2:30pm at [facility] Vaccines due: Covid, Flu, and Tdap Screenings: LMP Overdue care gaps: Not applicable documented in this encounter Plan of Treatment Not on file documented as of this encounter Visit Diagnoses Not on filedocumented in this encounter Additional Health Concerns Assessment Noted Time PHQ-9 Depression Total Score: 5 09/27/19 3:46 PM EST documented as of this encounter Care Teams Electrical Parts Reconditioner Relationship Specialty Start Date End Date Fely Bey FNP [address] [place] [address] PCP - General Family Medicine 05/20/22 documented as of this encounter
--- OUTSIDE RECORDS SUMMARY | 2025-05-30 18:56 | XMS_ITS | Encounter Summary ---
Author Organization [facility] Address [address] [place] [address] Care Team Providers Care Chocolate Maker Name Role Phone Fely Bey Primary Care Provider [phone] Encounter Details Date Type Department Care Team ([facility] st Contact Info) Description 03/12/2025 Orders Only [facility] [address] [place], [place] [phone] Fely Bey FNP [address] [place], [place] [phone] Vitamin D insufficiency (Primary Dx); Healthcare maintenance; Iron deficiency Social History Tobacco Use Types Packs/Day [...] Procedure Name Priority Date/Time Associated Diagnosis Comments VITAMIN D,25-OH,TOTAL,IA Routine 03/12/2025 3:55 PM EDT Vitamin D insufficiency CBC WITH AUTO DIFFERENTIAL Routine 03/12/2025 3:55 PM EDT Vitamin D insufficiency Iron deficiency IRON AND TOTAL IRON BINDING CAPACITY Routine 03/12/2025 3:55 PM EDT Iron deficiency FERRITIN Routine 03/12/2025 3:55 PM EDT Iron deficiency VITAMIN B12 Routine 03/12/2025 3:55 PM EDT Healthcare maintenance documented in this encounter Results * Vitamin B12 (03/12/2025 3:55 PM EDT) Vitamin B12 241 200 - 900 pg/mL [facility] Comment:NORMAL 200-900 PG/ML INDETERMINATE 160-199 PG/ML DEFICIENT < 160 PG/ML Blood Venous blood specimen / Unknown 03/12/2025 3:55 PM EDT 03/12/2025 3:55 PM EDT Fely Bey [facility] BLOOD ORDERABLES Final Res ult Performing Organization Address City/[facility]/ZIP Co de Phone Number [facility] [address] [place] [address] [phone] * (ABNORMAL) Vitamin D, 25-Hydroxy, Total, Immunoassay (03/12/2025 3:55 PM EDT) Pathologist [facility] Vitamin D 25-OH Total 17.8(L) >30 ng/mL [facility] Comment: Health Based Reference Values*< 20 ng/mL [id number] ng/mL Insufficient> 30 ng/mL Sufficient*Nithya MONTILLA. N Engl J Med. 2007;357:266-280There is no well-established upper level of normal vitamin Dlevels. Some laboratories use 50 ng/mL as an upper limit ofnormal. However, toxicity is patient-dependent and may occurat any level. Careful correlation with the patient'spresentation is necessary and, if there is concern forvitamin D toxicity, treatment should be consideredirrespective of the serum level.Care must be taken in interpreting Vitamin D [...] LC-MS/MS. Blood Venous blood specimen / Unknown 03/12/2025 3:55 PM EDT 03/12/2025 3:55 PM EDT Fely Bey [facility] BLOOD ORDERABLES Final Res ult Performing Organization Address [facility]/ZIP Co de Phone Number [facility] [address] [place] [phone] * Ferritin (03/12/2025 3:55 PM EDT) Pathologist [facility] Ferritin 12 10 - 122 ng/mL [facility] Blood Venous blood specimen / Unknown 03/12/2025 3:55 PM EDT 03/12/2025 3:55 PM EDT Fely Bey [facility] BLOOD ORDERABLES Final Res ult Performing Organization Address [facility] de Phone Number [facility] [address] [place] [phone] * (ABNORMAL) Iron And Total Iron Binding Capacity (03/12/2025 3:55 PM EDT) [facility] Iron 37 30 - 160 mcg/dL [facility] Total Iron Binding Capacity 286 228 - 428 mcg/dL [facility] Percent Iron Saturation 13(L) 15 - 50 % [facility] Unsaturated Iron Binding 249 ug/dL [facility] Blood Venous blood specimen / Unknown 03/12/2025 3:55 PM EDT 03/12/2025 3:55 PM EDT Fely Bey [facility] BLOOD ORDERABLES Final Res ult Performing Organization Address [facility] de Phone Number [facility] [address] [place] [phone] * (ABNORMAL) CBC auto differential (03/12/2025 3:55 PM EDT) [facility] White Blood Count 7.5 4.8 - 10.8 X10*3/uL [facility] Red Blood Count 4.30 4.20 - 5.50 X10*6/uL [facility] Hemoglobin 11.5(L) 12.0 - 16.0 g/dl [facility] Hematocrit 36.3(L) 37.0 - 47.0 % [facility] Mean Corpuscular Volume 84.4 80.0 - 98.0 fL [facility] Mean Corpuscular Hemoglobin 26.7(L) 27.0 - 33.0 pg [facility] Mean Corpuscular HGB Conc 31.7 31.0 - 35.0 g/dl [facility] Red Cell Distribution Width 14.4 11.0 - 16.0 % [facility] Platelet Count 269 160 - 400 X10*3/uL [facility] Mean Platelet Volume 11.1 9.4 - 12.3 fL [facility] Neutrophils Percent Auto 70.1 45 - 73 % [facility] Imm Gran Pct Auto 0.1 0.0 - 0.4 % [facility] Lymphocytes Percent Auto 23.6 20 - 40 % [facility] Monocytes Percent Auto 5.2 2 - 11 % [facility] Eosinophils Percent Auto 0.5 0 - 4 % [facility] Basophils Percent Auto 0.5 0 - 2 % [facility] NRBC Pct Auto 0.0 0.0 - 0.2 /100WBC [facility] Neutrophils Absolute Auto 5.3 2.0 - 8.3 x10*3/uL [facility] Imm Gran Abs Auto 0.01 0.00 - 0.03 X10*3/uL [facility] Lymphocytes Absolute Auto 1.8 1.2 - 4.9 X10*3/uL [facility] Monocytes Absolute Auto 0.4 0.1 - 1.2 X10*3/uL [facility] Eosinophils Absolute Auto 0.0 0.0 - 0.4 X10*3/uL [facility] Basophils Absolute Auto 0.0 0.0 - 0.2 X10*3/uL [facility] NRBC Abs Auto 0.000 0.0 - 0.012 X10*3/uL [facility] Blood Venous blood specimen / Unknown 03/12/2025 3:55 PM EDT 03/12/2025 3:55 PM EDT us Fely Bey [facility] BLOOD ORDERABLES Final Res ult [facility] [address] [place] [phone] documented in this encounter Visit Diagnoses Diagnosis Vitamin D insufficiency- Primary Healthcare maintenance Iron deficiency Disorders of iron metabolism documented in this encounter Additional Health Concerns Assessment Noted Time PHQ-9 Depression Total Score: 5 09/27/19 25 3:46 PM EST documented as of this encounter Care Teams Chocolate Maker Relationship Specialty Start Date End Date Fely Bey FNP [address] [place] [phone] PCP - General Family Medicine 05/20/22 documented as of this encounter
--- OUTSIDE RECORDS SUMMARY | 2025-05-30 18:56 | XMS_ITS | Clinical Summary ---
Author Organization [employer] Address [address] [facility] 7t [place] [address] Care Team Providers Care Child Development Assistant Name Role Phone Fely Bey IZZY Primary Care Provider Allergies No known active allergies Medications D-MANNOSE PO Take by mouth. Over the counter supplement: O-POSITIVE. Contains Vit C, D-mannose, and Cranberry extract Active norethindrone (Micronor) 0.35 MG tabletIndication s:Encounter for initial prescription of contraceptive pills Take 1 tablet (0.35 mg) by mouth Once per day. 90 tablet 03/28/202025 Active Chelsea 30 MG tabletIndication s:Encounter for initial prescription of contraceptive pills TAKE 1 TABLET SOON POSSIBLE WITHIN 5 DAYS AFTER UNPROTECTED SEX OR IF YOU HAD A CONTROL FAILURE. MAY BE TAKEN WITH OR WITHOUT FOOD. 1 tablet 11 03/28/20 25 Active cyanocobalamin (Vitamin B-12) 1000 MCG tabletIndication s:Vitamin B12 deficiency Take 1 tablet (1,000 mcg) by mouth Once per day. 90 tablet 03/29/20 25 2025 Active cholecalciferol (Vitamin D3) 25 MCG (1000 UT) tabletIndication s:Vitamin D insufficiency Take 1 tablet (25 mcg) by mouth in the morning. 90 tablet 3 03/29/20 25 Active Magnesium 400 MG capsule Take 400 mg by mouth at bedtime. 90 capsule 03/29/20 25 Active ferrous gluconate (Fergon) 324 (38 Fe) MG tabletIndication s:Iron deficiency Take 1 pill every Wednesday, Wednesday, and Wednesday. Take with a full glass of water or Vit C containing juice, and ideally 1 hour before a meal or 2 hours after a meal 36 tablet 04/30/20 Active Zepbound 5 MG/0.5ML solution auto-injectorInd ications:Class 1 obesity with body mass index (BMI) of 34.0 to 34.9 in adult, unspecified obesity type, unspecified whether serious comorbidity present INJECT 0.5 ML (5 MG) UNDER THE SKIN 1 (ONE) TIME PER WEEK. 2 mL 1 05/23/20 25 Active Tirzepatide-Weig ht Management (Zepbound) 5 MG/0.5ML solution auto-injectorInd ications:Class 1 obesity with body mass index (BMI) of 34.0 to 34.9 in adult, unspecified obesity type, unspecified whether serious comorbidity present Inject 0.5 mL (5 mg) under the skin 1 (one) time per week. 2 mL 1 04/30/20 25 2024 Discontinued Active Problems Problem Noted Date Diagnosed Date Bilateral carpal tunnel syndrome 12/26/2024 Overview (05/30/2025): 12/26/24: EMG completed and demonstrated mild bilateral ulnar neuropathy across cubital tunnel and mild bilateral median neuropathy across carpal tunnel. Cont wrist splints [facility] Ortho consult Apr 2025: plan to proceed with right cubital tunnel release and right carpal tunnel release under general anesthesia. Assessment & Plan (12/26/2024 4:46 PM EDT): DME request for bilateral wrist splints placed 12/26/24 Cubital tunnel syndrome of both upper extremitie s 12/26/2024 Overview (05/30/2025): 12/26/24: EMG completed and demonstrated mild bilateral ulnar neuropathy across cubital tunnel and mild bilateral median neuropathy across carpal tunnel. Cont wrist splints [facility] Ortho consult Apr 2025: plan to proceed with right cubital tunnel release and right carpal tunnel release under general anesthesia. Chest wall pain 10/02/2024 Joint pain in both hands 09/27/2024 Assessment & Plan (03/28/2025 9:58 AM EDT): -JOSE, RF, CRP, sed rate wnl Oct 2024 -Intermittent swelling and joint pains in fingers -Referral to [facility] Ortho Assessment & Plan (09/27/2024 3:43 PM EST): [...] and vegetables Vitamin D insufficiency 01/13/2024 Overview (03/28/2025): Lab Results Component Value Date [id number] 17.8 (L) 03/12/2025 [id number] 31.9 11/01/2024 [id number] 25.8 (L) 07/12/2024 Assessment & Plan (03/28/2025 9:57 AM EDT): - Plan: restart Vit D 1000 units daily Iron deficiency 01/13/2024 Overview (01/13/2024): Hx of iron deficiency with intermittent anemia dating back to at least 2012, possibly earlier H/H improves s/p tx with iron supplements, however trend shows decline when off supplementation. Unclear origin of iron deficiency Assessment & Plan (03/28/2025 9:58 AM EDT): Plan for iron supplementation and repeat labs in 3-6 months. ED/urgent care precautions. Hx of gastric sleeve. Assessment & Plan (01/13/2024 5:29 PM EDT): Discussed results and previous trends with pt. Plan for iron supplementation and repeat labs in 3-6 months. Discussed consideration of Heme/Onc referral to further eval possible origin of intermittent LEIDY. ED/urgent care precautions. Hx of gastric sleeve. Obesity 01/16/2014 Assessment & Plan (05/30/2025 4:11 PM EDT): Lab Results Component Value Date TSH [...] Continue with nutrition and healthy lifestyle interventions Assessment & Plan (04/02/2025 7:18 AM EDT): Lab Results Component Value Date TSH 50 12/24/2022 - Last nutrition goal: transition from soda to carbonated water - Semaglutide start: March 2024 - Initial weight: 263 lbs - Today's weight: 197 lbs - Has lost 66 lbs (25% initial body weight) over the past year. Good therapeutic response - Continue with semaglutide 2.4mg weekly - Continue with nutrition and healthy lifestyle interventions Assessment & Plan (09/27/2024 3:37 PM EST): Lab Results Component Value Date TSH 50 12/24/2022 -Nutrition goal: transition from soda to carbonated water - Semaglutide start: March 2024 - Has lost 32 lbs (12% initial body weight) over the past 6 months. Good therapeutic response - Continues with semaglutide 1.7mg weekly Assessment & Plan (07/12/2024 9:44 AM EDT): Lab Results Component Value Date TSH 150 12/24/2022 -Nutrition goal: transition from soda to [...] weight. More important is healthy behavioral habits. Resolved Problems Problem Noted Date Diagnosed Date Resolved Date Left upper quadrant abdominal pain 10/02/2024 03/28/2025 Left lower quadrant abdominal pain 10/02/2024 03/28/2025 Encounters Date Type Department Care Team Description 05/30/2025 10:15 AM EDT Office Visit [facility] [address] [place] [address] Fely Bey, IZZY Temporomandibular joint click (Primary Dx); Sore throat; Cubital tunnel syndrome of both upper extremities; Bilateral carpal tunnel syndrome; Class 1 obesity with body mass index (BMI) of 34.0 to 34.9 in adult, unspecified obesity type, unspecified whether serious comorbidity present 05/30/2025 Travel 05/29/2025 Telephone [facility] [address] [place] [address] Fely Bey, PROVIDER RELATIONS REP CHART PREP 05/23/2025 Refill [facility] [address] [place] [address] Fely Bey, PROVIDER RELATIONS REP Class 1 obesity with body mass index (BMI) of 34.0 to 34.9 in adult, unspecified obesity type, unspecified whether serious comorbidity present 04/30/2025 Refill [facility] [address] [place] [address] Phalyeyo Fely, PROVIDER RELATIONS REP Iron deficiency (Primary Dx); Class 1 obesity with body mass index (BMI) of 34.0 to 34.9 in adult, unspecified obesity type, unspecified whether serious comorbidity present 04/10/2025 Results Follow-Up [facility] [address] [place] [address] PhalFely orona, PROVIDER RELATIONS REP hCG, Total, Quantitative 04/03/2025 Orders Only [facility] [address] [place] [address] Fely Bey, PROVIDER RELATIONS REP 03/29/2025 Refill [facility] [address] [place] [address] Fely Bey, PROVIDER RELATIONS REP Vitamin B12 deficiency; Vitamin D insufficiency 03/28/2025 9:00 AM EDT Office Visit [facility] [address] [place] [phone] Fely Bey, PROVIDER RELATIONS REP Bilateral carpal tunnel syndrome (Primary Dx); Cubital tunnel syndrome of both upper extremities; Joint pain in both hands; Encounter for initial prescription of contraceptive pills; Vitamin D insufficiency; Iron deficiency; Class 1 obesity with body mass index (BMI) of 34.0 to 34.9 in adult, unspecified obesity type, unspecified whether serious comorbidity present; Sleep difficulties 03/28/2025 Travel 03/27/2025 Telephone [facility] [address] [place] [phone] Fely Bey, PROVIDER RELATIONS REP CHART PREP 03/21/2025 Travel 03/19/2025 Refill [facility] [address] [place] [phone] Fely Bey, PROVIDER RELATIONS REP 03/12/2025 Orders Only [facility] [address] [place] [address] Fely Bey FNP Vitamin D insufficiency (Primary Dx); Healthcare maintenance; Iron deficiency 03/03/2025 Refill [facility] [address] [place] [address] Fely Bey FNP from Last 3 Months Immunizations Immunization Administration Dates Next Due HPV, Quadrivalent 09/23/2009,07/18/2008,06/28/20 07 Hep A, Adult 05/04/2019,04/07/2017 Hep B, Adolescent or Pediatric 04/20/1997,1996,06/21/1995 Hep B, adult 04/07/2017 Hib ([facility]) 07/21/1993, 3,1992,06/20 IPV 09/20/1996, 4,1992,06/20 Influenza Injectable [...] Date Smoking Tobacco: Never Smokeless Tobacco: Never Tobacco Cessation:Counseling Given: Not [...] Q2 Not on file 05/20/2024 Comments Unknown Intention Date Recorded No desire to become (finding) 0 03/28/2025 Sex and Gender Information Value Date Recorded [...] Mass Index 32.63 05/30/2025 10:38 AM EDT Plan of Treatment Health Maintenance Due Date Last Done Comments DTaP/Tdap/Td Vaccines (6 - Td or Tdap) 10/31/2022 10/31/2012, 07/08/2004, 09/20/1996, Additional history exists COVID-19 Vaccine ( - season) 2025 04/02/2022, 03/12/2022 Influenza Vaccine (#1) 2025 8, 08/14/2014, 10/24/2013, Additional history exists Cervical Cancer Screening 09/24/2025 HPV/Cotest 09/24/2025 09/24/2020 Pap Smear 09/24/2025 09/24/2020 Alcohol/Substance Use Screening 09/27/2025 09/27/2024 Depression Screening 09/27/2025 09/27/2024, 09/27/19 25 Disability Screening 03/28/2026 03/28/2025 SDOH Screening 03/28/2026 03/28/2025 Family Planning (PISQ) 04/02/2026 04/02/2025 Tobacco Screening 05/30/2026 05/30/2025 Lipid Panel 08/08/2026 08/08/2021, 07/10/2020 Zoster Vaccines [...] 07/10/2020 HIV Screening Completed 07/20/2022, 05/21, 08/08/2021 Meningococcal B Vaccine Aged Out No l onger eligible based on patient's age to complete this topic Pneumococcal Vaccine: Pediatrics (0 to 5 Years) and At-Risk Patients (6 to 49) Years Aged Out No longer eligible based on patient's age to complete this topic RSV under 20 months Aged Out No longe r eligible based on patient's age to complete this topic Rotavirus Vaccines Aged Out No longer eligible based on patient's age to complete this topic Procedures Procedure Name Priority Date/Time Associated Diagnosis Comments HCG, TOTAL, QN Routine 04/10/2025 11:04 AM EDT Encounter for initial prescription of contraceptive pills VITAMIN B12 Routine 03/12/2025 3:55 PM EDT Healthcare maintenance VITAMIN D,25-OH,TOTAL,IA Routine 03/12/2025 3:55 PM EDT Vitamin D insufficiency FERRITIN Routine 03/12/2025 3:55 PM EDT Iron deficiency IRON AND TOTAL IRON BINDING CAPACITY Routine 03/12/2025 3:55 PM EDT Iron deficiency CBC WITH AUTO DIFFERENTIAL Routine 03/12/2025 3:55 PM EDT Vitamin D insufficiency Iron deficiency HIV 1/2 ANTIGEN/ANTIBODY, FOURTH GENERATION W/RFL Routine [...] Recently Relevant to Health Maintenance Results * hCG, Total, Quantitative (04/10/2025 11:04 AM EDT) HCG Quantitative <2 mIU/mL [facility] Comment:Weeks post LMP Appr oximate hCG(Last Menstrual Period) Range (mIU/ml)3 - 4 weeks 9 - 1304 - 5 weeks 75 - 2,6005 - 6 weeks 850 - 20,8006 - 7 weeks 4000 - 100,2007 - 12 weeks 11,500 - 289,83696 - 16 weeks 18,300 - 137,69768 - 29 weeks (2nd trimester) 1,400 - 53,18480 - 41 weeks (3rd trimester) 940 - 60,000The Hurley B- hCG assay is used for the early detection ofpregnancy; it cannot be used to diagnose any conditionunrelated to . If a B-hCG level is not supportedby the clinical evidence, results should be confirmed by analternative method (qualitative urine hCG, for example). Blood Venous blood specimen / Unknown 04/10/2025 11:04 AM EDT 04/10/2025 11:04 AM EDT us Fely Bey [facility] LAB BLOOD ORDERABLES Final Res ult [facility] [address] [place] [phone] * (ABNORMAL) Vitamin D, 25-Hydroxy, Total, Immunoassay (03/12/2025 3:55 PM EDT) Vitamin D 25-OH Total 17.8(L) >30 ng/mL [facility] Comment: Health Based Reference Values*< 20 ng/mL [id number] ng/mL Insufficient> 30 ng/mL Sufficient*Nithya MONTILLA. N [...] 03/12/2025 3:55 PM EDT us Fely Bey [facility] LAB BLOOD ORDERABLES Final Res ult [facility] [address] [place], [place] [phone] * (ABNORMAL) CBC auto differential (03/12/2025 3:55 PM EDT) White Blood Count 7.5 4.8 - 10.8 X10*3/uL [facility] Red Blood Count 4.30 4.20 - 5.50 X10*6/uL [facility] Hemoglobin 11.5(L) 12.0 - 16.0 g/dl [facility] Hematocrit 36.3(L) 37.0 - 47.0 % [facility] Mean Corpuscular Volume 84.4 80.0 - 98.0 fL [facility] Mean Corpuscular Hemoglobin 26.7(L) 27.0 - 33.0 pg [facility] Mean Corpuscular HGB Conc 31.7 31.0 - 35.0 g/dl [facility] Red Cell Distribution Width 14.4 11.0 - 16.0 % [facility] Platelet Count 269 160 - 400 X10*3/uL [facility] Mean Platelet Volume 11.1 9.4 - 12.3 fL [facility] Neutrophils Percent Auto 70.1 45 - 73 % [facility] Imm Gran Pct Auto 0.1 0.0 - 0.4 % [facility] Lymphocytes Percent Auto 23.6 20 - 40 % [facility] Monocytes Percent Auto 5.2 2 - 11 % [facility] Eosinophils Percent Auto 0.5 0 - 4 % [facility] Basophils Percent Auto 0.5 0 - 2 % [facility] NRBC Pct Auto 0.0 0.0 - 0.2 /100WBC [facility] Neutrophils Absolute Auto 5.3 2.0 - 8.3 x10*3/uL [facility] Imm Gran Abs Auto 0.01 0.00 - 0.03 X10*3/uL [facility] Lymphocytes Absolute Auto 1.8 1.2 - 4.9 X10*3/uL [facility] Monocytes Absolute Auto 0.4 0.1 - 1.2 X10*3/uL [facility] Eosinophils Absolute Auto 0.0 0.0 - 0.4 X10*3/uL [facility] Basophils Absolute Auto 0.0 0.0 - 0.2 X10*3/uL [facility] NRBC Abs Auto 0.000 0.0 - 0.012 X10*3/uL [facility] Blood Venous blood specimen / Unknown 03/12/2025 3:55 PM EDT 03/12/2025 3:55 PM EDT Fely Bey PROVIDER RELATIONS REP LAB BLOOD ORDERABLES Final Res ult [facility] [address] [place] [phone] [phone] * (ABNORMAL) Iron And Total Iron Binding Capacity (03/12/2025 3:55 PM EDT) Iron 37 30 - 160 mcg/dL [facility] Total Iron Binding Capacity 286 228 - 428 mcg/dL [facility] Percent Iron Saturation 13(L) 15 - 50 % [facility] Unsaturated Iron Binding 249 ug/dL [facility] Blood Venous blood specimen / Unknown 03/12/2025 3:55 PM EDT 03/12/2025 3:55 PM EDT Fely Bey PROVIDER RELATIONS REP LAB BLOOD ORDERABLES Final Res ult Performing Organization Address [facility]/ZIP Co de Phone Number [facility] [address] [place] [phone] * Ferritin (03/12/2025 3:55 PM EDT) Ferritin 12 10 - 122 ng/mL [facility] Blood Venous blood specimen / Unknown 03/12/2025 3:55 PM EDT 03/12/2025 3:55 PM EDT Fely Bey PROVIDER RELATIONS REP LAB BLOOD ORDERABLES Final Res ult Performing Organization Address [facility] Co de Phone Number [facility] [address] [place] [phone] * Vitamin B12 (03/12/2025 3:55 PM EDT) Vitamin B12 241 200 - 900 pg/mL [facility] Comment:NORMAL 200-900 PG/ML INDETERMINATE 160-199 PG/ML DEFICIENT < 160 PG/ML Blood Venous blood specimen / Unknown 03/12/2025 3:55 PM EDT 03/12/2025 3:55 PM EDT Fely Bey PROVIDER RELATIONS REP LAB BLOOD ORDERABLES Final Res ult Performing Organization Address [facility] Co de Phone Number [facility] [address] [place] [phone] * HIV 1/2 ANTIGEN/ANTIBODY,FOURTH GENERATION W/RFL (07/20/2022 11:52 AM EDT) HIV-1/2 ANTIGEN AND ANTIBODIES, 4TH GENERATION W/ REFLEX NON-REACT MARYLU NON-REACT MARYLU [facility] Comment: HIV-1 antigen and HIV-1/HIV-2 antibodies were not detected. There is no laboratory evidence of HIV infection. PLEASE NOTE: This information has been disclosed to you from records whose confidentiality may be protected by state law. If your state requires such protection, then the state law prohibits you from making any further disclosure of the information without the specific written consent of the person to whom it pertains, or as otherwise permitted by law. A general authorization for the release of medical or other information is NOT sufficient for this purpose. For additional information please refer to http://[email or web address]/faq/EIH906 (This link is being provided for informational/ educational purposes only.) The performance of this assay has not been clinically validated in patients less than 2 years old. 07/20/2022 11:5 2 AM EDT Yaritza Aranda [facility] LAB BLOOD ORDERABLES Courtney l Result [facility] * HEPATITIS C AB W/REFL TO HCV RNA, QN, PCR (06/01/2022 10:49 AM EDT) HEPATITIS C ANTIBODY NON-REACT MARYLU NON-REACT MARYLU [facility] INDEX 0.08 <1.00 [facility] Comment: HCV antibody was non-reactive. There is no laboratory evidence of HCV infection. In most cases, no further action is required. However, if recent HCV exposure is suspected, a test for HCV RNA (test code 17320) is suggested. For additional information please refer to http://[email or web address]/faq/QSL21a4 (This link is being provided for informational/ educational purposes only.) 06/01/2022 10:4 9 AM EDT Milla Castillo NP HISTORICAL/NON ORDERABLE LABS Final Result [facility] [address] * (ABNORMAL) LIPID PANEL, STANDARD (08/08/2021 9:18 AM EST) Pathologist [facility] Chol/HDLC Ratio 3.7 <5.0 (calc) [facility] Cholesterol, Total 159 <200 mg/dL [facility] HDL Cholesterol 43(L) > OR = 50 mg/dL [facility] LDL Cholesterol 99 mg/dL (calc) [facility] Comment: Reference range: <100 Desirable range <100 mg/dL for primary prevention; <70 mg/dL for patients with CHD or diabetic patients with > or = 2 CHD risk factors. LDL-C is now calculated using the Negro calculation, which is a validated novel method providing better accuracy than the Friedewald equation in the estimation of LDL-C. Cristobal SS et al. DIONNE. 2013;310(19): 0940-5784 (http://education.Estech/faq/QFG759) Non-HDL Cholesterol 116 <130 mg/dL (calc) [facility] Comment: For patients with diabetes plus 1 major ASCVD risk factor, treating to a non-HDL-C goal of <100 mg/dL (LDL-C of <70 mg/dL) is considered a therapeutic option. Triglycerides 78 <150 mg/dL [facility] 08/08/2021 9:18 AM EST us Milla Castillo NP LAB BLOOD ORDERABLES Final Res ult [facility] [address] [place] [address], * THINPREP TIS PAP (09/24/2020 12:00 AM EST) Pathologist [facility] Clinical Information: None given [facility] COMMENT SEE COMMENT [facility] Comment: EXPLANATORY NOTE: The Pap is a screening test for cervical cancer. It is not a diagnostic test and is subject to false negative and false positive results. It is most reliable when a satisfactory sample, regularly obtained, is submitted with relevant clinical findings and history, and when the Pap result is evaluated along with historic and current clinical information. COMMENT: This Pap test has been evaluated with computer assisted technology. [facility] Plywood Scarfer Tender : SEE COMMENT [facility] Comment: SXA, CT(ASCP) CT screening location: [place] [id number] Interpretation/R esult: Negative for intraepithelial lesion or malignancy. [facility] LMP: NONE GIVEN [facility] Prev. BX: NONE [facility]IVEN [facility] Prev. PAP: NONE GIVEN [facility] SOURCE: None given [facility] Statement Of Adequacy: SEE COMMENT [facility] Comment: Satisfactory for evaluation. Endocervical/transformation zone component absent. Age and/or menstrual status not provided 09/24/2020 Historical Provider MD LAB PATHOLOGY ORDERABLES Final Result Performing Organization Address [facility] de Phone Number [facility] [address] * HPV mRNA E6/E7 (09/24/2020 12:00 AM EST) HPV nRNA E6/E7 Not Detected Not Detected [facility] Comment: This test was performed using the APTIMA HPV Assay ([employer] This assay detects E6/E7 viral messenger RNA (mRNA) from 14 high-risk HPV types (16,18,31,33,35,39,45,51,52,56,58,59,66,68). The analytical performance characteristics of this assay have been determined by [employer]. The modifications have not been cleared or approved by the FDA. This assay has been validated pursuant to the CLIA regulations and is used for clinical purposes. 09/24/2020 Historical Provider MD LAB BLOOD ORDERABLES Courtney l Result Performing Organization Address City/[facility] Co de Phone Number [facility] [address] from Last 3 Months or Most Recently Relevant to Health Maintenance Insurance [facility] Care Teams Child Development Assistant Relationship Specialty Start Date End Date Fely Bey FNP [address] [place] [phone] PCP - General Family Medicine 05/20/22
--- OUTSIDE RECORDS SUMMARY | 2025-05-30 18:56 | XMS_ITS | Encounter Summary ---
Author Organization [employer] Address [address] [facility] [address] [place] [address] Care Team Providers Care Shear Setter Name Role Phone Fely Bey Primary Care Provider [phone] Encounter Details Date Type Department Care Team (Late st Contact Info) Description 06/28/2024 Orders Only [facility] [address] [place] [address] Fely Bey FNP [address] [place] [address] Class 3 severe obesity due to excess [...] (BMI) of 45.0 to 49.9 in adult documented in this encounter Additional Health Concerns Assessment Noted Time PHQ-9 Depression Total Score: 12 024 10:15 AM EDT documented as of this encounter Care Teams Shear Setter Relationship Specialty Start Date End Date Fely Bey FNP [address] [place] [phone] PCP - General Family Medicine 05/20/22 documented as of this encounter
--- OUTSIDE RECORDS SUMMARY | 2025-05-30 18:56 | XMS_ITS | Encounter Summary ---
Author Organization [employer] Address [address] [facility] 7 [place] [address] Care Team Providers Care Camera Technician Name Role Phone Fely Bey Primary Care Provider [phone] Reason for Visit * Reason Comments Med Refill Encounter Details Date Type Department Care Team (Late st Contact Info) Description 02/05/2025 Refill [facility] [address] [place] [address] Fely Bey FNP [address] [place], [place] [phone] Social History Tobacco Use Types Packs/Day Years [...] documented as of this encounter Care Teams Camera Technician Relationship Specialty Start Date End Date Fely Bey FNP [address] [place] [address] PCP - General Family Medicine 05/20/22 documented as of this encounter
--- OUTSIDE RECORDS SUMMARY | 2025-05-30 18:56 | XMS_ITS | Encounter Summary ---
Author Organization [employer] Address 75 [facility] 7 [place] [address] Care Team Providers Care Cfa Name Role Phone Fely Bey Primary Care Provider [phone] Reason for Visit * Reason Comments Med Refill Encounter Details Date Type Department Care Team (Late st Contact Info) Description 07/17/2024 Refill [facility] MEDICINE [address] [place] [address] Fely Bey FNP [address] [place], [place] [phone] Class 3 severe obesity due to excess [...] documented as of this encounter Care Teams Cfa Relationship Specialty Start Date End Date Fely Bey FNP [address] [place] [address] PCP - General Family Medicine 05/20/22 documented as of this encounter
--- OUTSIDE RECORDS SUMMARY | 2025-05-30 18:56 | XMS_ITS | Encounter Summary ---
Author Organization [employer] Address 75 [facility] 7 [place] [address] Care Team Providers Care Hydrogen Plant Operations Manager Name Role Phone Fely Bey Primary Care Provider [phone] Encounter Details Date Type Department Care Team (Latest Contact Info) Description 04/10/2025 Results Follow-Up [facility] MED & PEDS [address] [place], [place] [phone] Fely Bey FNP 505 [place], [place] [phone] hCG, Total, Quantitative Social History Tobacco Use Types Packs/Day Years [...] documented as of this encounter Care Teams Hydrogen Plant Operations Manager Relationship Specialty Start Date End Date Fely Bey FNP 230 [place] [address] PCP - General Family Medicine 05/20/22 documented as of this encounter
--- OUTSIDE RECORDS SUMMARY | 2025-05-30 18:56 | XMS_ITS | Encounter Summary ---
Author Organization [employer] Address 75 [facility] 7t [place] [address] Care Team Providers Care Road Driver Name Role Phone Fely Bey Primary Care Provider Reason for Visit * Reason Onset Date Comments Med Refill 08/10/2024 Encounter Details Date Type Department Care Team (Late st Contact Info) Description 08/10/2024 Refill [facility] MEDICINE [address] [place] [address] Fely Bey FNP [address] [place] [address] Class 3 severe obesity due to excess [...] documented as of this encounter Care Teams Road Driver Relationship Specialty Start Date End Date Fely Bey FNP [address] [place] [address] PCP - General Family Medicine 05/20/22 documented as of this encounter
--- OUTSIDE RECORDS SUMMARY | 2025-05-30 18:56 | XMS_ITS | Encounter Summary ---
Author Organization [employer] Address 75 [facility] 7 [place] [address] Care Team Providers Care Market Maker Name Role Phone Fely Bey Primary Care Provider [phone] Reason for Visit * Reason Onset Date Comments Med Refill 05/23/2024 Encounter Details Date Type Department Care Team ([facility] st Contact Info) Description 05/23/2024 Refill [facility] MED & PEDS 505 [place], [place] [phone] Fely Bey FNP 505 [place], [place] [phone] Class 3 severe obesity without serious comorbidity [...] to 49.9 in adult, unspecified obesity type documented in this encounter Additional Health Concerns Assessment Noted Time PHQ-9 Depression Total Score: 12 024 10:15 AM EDT documented as of this encounter Care Teams Market Maker Relationship Specialty Start Date End Date Fely Bey FNP [address] [place] [address] PCP - General Family Medicine 05/20/22 documented as of this encounter
--- OUTSIDE RECORDS SUMMARY | 2025-05-30 18:56 | XMS_ITS | Encounter Summary ---
Author Organization [employer] Address 75 [facility] 7 [place] [address] Care Team Providers Care Central Service Tech Name Role Phone Fely Bey Primary Care Provider [phone] Reason for Visit * Reason Comments Med Refill Encounter Details Date Type Department Care Team (Late st Contact Info) Description 04/14/2023 Refill [facility] MEDICINE [address] [place] [address] Fely Bey FNP [address] [place] [address] Social History Tobacco Use Types Packs/Day Years [...] on filedocumented in this encounter Care Teams Central Service Tech Relationship Specialty Start Date End Date Fely Bey FNP [address] [place] [address] PCP - General Family Medicine 05/20/22 documented as of this encounter
[2025-05-31 09:36] LABS: Chlamydia pneumoniae PCR Not Detected (Not Detect.); Coronavirus 229E PCR Not Detected (Not Detect.); Coronavirus HKU1 PCR Not Detected (Not Detect.); Coronavirus NL63 PCR Not Detected (Not Detect.); Coronavirus OC43 PCR Not Detected (Not Detect.); RSV PCR Not Detected (Not Detect.); Rhino/Enterovirus PCR Not Detected (Not Detect.)
[2025-05-31 09:48] LABS: Influenza A H1 PCR Not Detected (Not Detect.); Influenza A H1-2009 PCR Not Detected (Not Detect.); Influenza A H3 PCR Not Detected (Not Detect.); SARS-CoV-2 PCR Not Detected (Not Detect.)
== END 2025-05-30 18:53 | disposition home or self-care (01) ==
LOC: HO.HHCLNP 18:52
PROVIDERS: Visit Provider Registered Nurse
DX: J02.9 Acute pharyngitis, unspecified (principal)
CPT/HCPCS: 87633

== ENCOUNTER 2025-07-20 18:25 | Outpatient (REF) | payer OTHER, SELFPAY ==
--- OUTSIDE RECORDS SUMMARY | 2025-07-20 15:20 | XMS_ITS | Encounter Summary ---
Author Organization [employer] Address 75 [facility] 7t [place] [address] Care Team Providers Care Cutter Grinder Name Role Phone Fely Bey IZZY Primary Care Provider [phone] Reason for Visit * Reason Comments UTI Encounter Details Date Type Department Care Team (Late st Contact Info) Description 07/20/2025 3:20 PM EDT Office Visit [facility] [address] [place] [address] Swati Blount NP [address] [place] [address] Dysuria (Primary Dx); Vaginal discharge Social History Tobacco Use Types Packs/Day Years [...] Sign Reading Time Taken Comments Blood Pressure 113/66 07/20/2025 3:44 PM EDT Pulse 72 07/20/2025 3:44 PM EDT Temperature 36.5 C (97.7 F) 07/20/2025 3:44 PM EDT Respiratory Rate 20 07/20/2025 3:44 PM EDT Oxygen Saturation - - Inhaled Oxygen Concentration - - Weight 78.1 kg (172 lb 3.2 oz) 07/20/2025 3:44 P M EDT Height 160 cm (5' 3 ) 07/20/2025 3:44 PM EDT Body Mass Index 30.5 07/20/2025 3:44 PM EDT documented in this encounter Progress Notes * Swati Blount NP - 07/20/2025 3:20 PM EDT Joyce Adam is a 35 y.o. female who presents to the office for Chief Complaint Patient presents with UTI Problem List[1] Medical History[2] Allergies[3] Joyce Adam, 35-year-old female - Vaginal discharge started 3 days ago, no odor - Back pain and abdominal cramps began after onset of discharge - Last menstrual period on July 01, 2025, history of irregular cycles - Mild burning on urination - Decreased urine output - Denies blood in urine, denies pain with sex, denies genital sores, denies increased urinary frequency - History of bacterial vaginosis - History of urinary tract infection, current symptoms similar to previous UTI - Last sexual intercourse one week prior to visit, not currently sexually active, recently stopped control - Using vitamins for vaginal health - Used [id number] Azo for urinary discomfort - Home urine test prior to visit showed positive result for UTI Review of Systems Genitourinary: Positive for decreased urine volume, dysuria and vaginal discharge. Negative for flank pain, frequency, genital sores, hematuria and urgency. Musculoskeletal: Positive for back pain. BP 113/66 (BP Location: Right arm, Patient Position: Sitting, BP Cuff Size: Adult) Pulse 72 Temp 97.7 ??F (36.5 ??C) (Temporal) Resp 20 Ht 5' 3 (1.6 m) Wt 172 lb 3.2 oz (78.1 kg) BMI 30.50 kg/m?? Physical Exam Vitals reviewed. HENT: Head: Normocephalic and atraumatic. Nose: Nose normal. Eyes: Conjunctiva/sclera: Conjunctivae normal. Cardiovascular: Rate and Rhythm: Normal rate and regular rhythm. Pulmonary: Effort: Pulmonary effort is normal. Breath sounds: Normal breath sounds. Musculoskeletal: Cervical back: Normal range of motion and neck supple. Neurological: General: No focal deficit present. Mental Status: She is alert. - GENITOURINARY: Examination for flank pain; no cramping or pain on the bladder. Results: Office Visit on 07/20/2025 Component Date Value Ref Range Status Preg Test, Ur 07/20/2025 Negative Negative, Indeterminate, None Detected, Invalid, Specimen unsatisfactory for evaluation, Weakly Positive, 2+ Final Color, UA 07/20/2025 Yellow Final Diane Clarity, UA 07/20/2025 Cloudy Final Glucose, UA 07/20/2025 Trace Final 250 mg/dl Bilirubin, UA 07/20/2025 Moderate Final Ketones, UA 07/20/2025 Positive Final trace Spec Grav, UA 07/20/2025 1.010 Final Blood, UA 07/20/2025 Negative Negative, None Detected Final pH, UA 07/20/2025 5.0 Final Protein, UA 07/20/2025 Trace Final 300 mg/dl Urobilinogen, UA 07/20/2025 >=8.0 Final Leukocytes, UA 07/20/2025 Many (A) Negative, Rare, Trace Final Large Nitrite, UA 07/20/2025 Positive (A) Negative, None Detected Final Assessment & Plan Dysuria Orders: Culture, Urine, Routine POCT urinalysis dipstick manually resulted (CPT 37840) Vaginal discharge Orders: Bacterial Vaginosis POCT , urine manually resulted Chlamydia/N. Gonorrhoeae RNA, TMA, Urogenitial Assessment & Plan Dysuria: - Dysuria likely due to urinary tract infection, based on symptoms and positive eetz-noj-ghiqyyl test. Differential diagnosis includes urinary tract infection versus other causes, but urinary stone is unlikely due to absence of hematuria and one-sided pain. - Prescribed Macrobid, one tablet twice daily for 5 days. Advised to monitor symptoms and start antibiotics if symptoms worsen. Urine culture ordered; results to be reviewed and treatment to be adjusted if necessary. Advised to push fluids and continue symptomatic relief with Pyridium. - Risks and side effects: Discussed risk of antibiotic side effects, including potential for yeast infection or bacterial vaginosis. Patient consented to plan. Vaginal discharge: - Vaginal discharge may be due to bacterial vaginosis or yeast infection; diagnosis pending cultureresults. Bacterial vaginosis considered less likely to be dangerous, but treatment recommended onceconfirmed. - Will prescribe vaginal antibiotics if culture confirms bacterial vaginosis or yeast infection. Advised to wait for culture results before initiating treatment. - Risks and side effects: Discussed that antibiotics may cause bacterial vaginosis or yeast infection as side effects. Patient informed and consented to plan. Prescription - Macrobid one tablet twice daily for 5 days; risk of bacterial vaginosis or yeast infection Current Medications[4] Based on our discussion, I have outlined the following instructions for you: - Take one Macrobid tablet two times a day for 5 days. - Pay attention to how you feel. If your symptoms get worse, start taking the antibiotics. - A urine test has been ordered. Wait for the results, as your treatment may change depending on what the test shows. - Drink plenty of water and keep using Pyridium to help with your symptoms. - If the test shows you have a vaginal infection, you will be given antibiotics for it. Wait for the test results before starting any new treatment for vaginal discharge. Thank you again for your visit, and we look forward to supporting you in your journey to better health. This note was drafted using Ambient (AI) technology. The patient/patient's guardian has been informed and has consented to the use of this technology: Yes [1] Patient Active Problem List Diagnosis Obesity Vitamin D insufficiency Iron deficiency Healthcare maintenance Joint pain in both hands Chest wall pain Bilateral carpal tunnel syndrome Cubital tunnel syndrome of both upper extremities [2] No past medical history on file. [3] No Known Allergies [4] Current Outpatient Medications: cholecalciferol (Vitamin D3) 25 MCG (1000 UT) tablet, Take 1 tablet (25 mcg) by mouth in the morning., Disp: 90 tablet, Rfl: 3 cyanocobalamin (Vitamin B-12) 1000 MCG tablet, Take 1 tablet (1,000 mcg) by mouth Once per day., Disp: 90 tablet, Rfl: 1 D-MANNOSE PO, Take by mouth. Over the counter supplement: O-POSITIVE. Contains Vit C, D-mannose, and Cranberry extract, Disp: , Rfl: Chelsea 30 MG tablet, TAKE 1 TABLET SOON POSSIBLE WITHIN 5 DAYS AFTER UNPROTECTED SEX OR IF YOU HAD A CONTROL FAILURE. MAY BE TAKEN WITH OR WITHOUT FOOD., Disp: 1 tablet, Rfl: 11 ferrous gluconate (Fergon) 324 (38 Fe) MG tablet, Take 1 pill every Wednesday, Wednesday, and Wednesday. Take with a full glass of water or Vit C containing juice, and ideally 1 hour before a meal or 2 hours after a meal, Disp: 36 tablet, Rfl: 0 Magnesium 400 MG capsule, Take 400 mg by mouth at bedtime., Disp: 90 capsule, Rfl: 1 nitrofurantoin, macrocrystal-monohydrate, (Macrobid) 100 MG capsule, Take 1 capsule (100 mg) by mouth 2 times daily for 5 days., Disp: 10 capsule, Rfl: 0 norethindrone (Micronor) 0.35 MG tablet, Take 1 tablet (0.35 mg) by mouth Once per day., Disp: 90 tablet, Rfl: 3 Tirzepatide-Weight Management (Zepbound) 7.5 MG/0.5ML solution auto-injector, Inject 0.5 mL (7.5 mg) under the skin 1 (one) time per week., Disp: 2 mL, Rfl: 2 documented in this encounter Plan of Treatment Scheduled Orders Name Type Priority Associated Diagnoses Orde r Schedule Bacterial Vaginosis Microbiology Routine Vaginal discharge Ordered: 07/20/2025 Culture, Urine, Routine Microbiology Routine Dysuria Ordered: 07/20/2025 Chlamydia/N. Gonorrhoeae RNA, TMA, Urogenitial Microbiology Routine Vaginal discharge Ordered: 07/20/2025 documented as of this encounter Procedures Procedure Name Priority Date/Time Associated Diagnosis Comments POCT URINALYSIS DIPSTICK Routine 07/20/2025 4:14 PM EDT Dysuria POCT , URINE Routine 07/20/2025 3:57 PM EDT Vaginal discharge documented in this encounter Results * (ABNORMAL) POCT urinalysis dipstick manually resulted (CPT 88897) (07/20/2025 4:14 PM EDT) Color, UA Yellow Comment:Diane Clarity, UA Cloudy Glucose, UA Trace Comment:250 mg/dl Bilirubin, UA Moderate Ketones, UA Positive Comment:trace Spec Grav, UA 1.010 Blood, UA Negative Negative, None Detected pH, UA 5.0 Protein, UA Trace Comment:300 mg/dl Urobilinogen, UA >=8.0 Leukocytes, UA Many(A) Negative, Rare, Trace Comment:Large Nitrite, UA Positive(A) Negative, None Detected Urine (Urine, Random) 07/20/2025 4:14 PM EDT Swati Blount NP POINT OF CARE TEST ENTER/EDIT OR DERABLES Final Result * POCT , urine manually resulted (07/20/2025 3:57 PM EDT) Preg Test, Ur Negative Negative, Indeterminate, None Detected, Invalid, Specimen unsatisfactory for evaluation, Weakly Positive, 2+ Urine 07/20/2025 3:57 PM EDT Swati Blount PROFESSOR OF FAMILY MEDICINE POINT OF CARE TEST ENTER/EDIT OR DERABLES Final Result documented in this encounter Visit Diagnoses Diagnosis Dysuria- Primary Vaginal discharge Leukorrhea, not specified as infective documented in this encounter Additional Health Concerns Assessment Noted Time PHQ-9 Depression Total Score: 5 09/27/19 25 3:46 PM EST documented as of this encounter Care Teams Cutter Grinder Relationship Specialty Start Date End Date Fely Bey FNP [address] [place] [address] PCP - General Family Medicine 05/20/22 documented as of this encounter
--- OUTSIDE RECORDS SUMMARY | 2025-07-20 18:28 | XMS_ITS | Encounter Summary ---
Author Organization [employer] Address 75 [facility] 7 [place] [address] Care Team Providers Care Swimming Pool Installer And Servicer Name Role Phone Fely Bey Primary Care Provider [phone] Reason for Visit * Reason Comments Med Refill Encounter Details Date Type Department Care Team (Late st Contact Info) Description 04/14/2023 Refill [facility] MEDICINE [address] [place] [address] Fely Bey FNP [address] [place] [address] Social History Tobacco Use Types Packs/Day Years [...] on filedocumented in this encounter Care Teams Swimming Pool Installer And Servicer Relationship Specialty Start Date End Date Fely Bey FNP [address] [place] [address] PCP - General Family Medicine 05/20/22 documented as of this encounter
--- OUTSIDE RECORDS SUMMARY | 2025-07-20 18:28 | XMS_ITS | Encounter Summary ---
Author Organization [employer] Address 75 [facility] 7t [place] [address] Care Team Providers Care Legal File Clerk Name Role Phone Fely Bey IZZY Primary Care Provider [phone] Encounter Details Date Type Department Care Team (Latest Contact Info) Description 07/20/2025 Travel Social History Tobacco Use Types Packs/Day [...] documented as of this encounter Care Teams Legal File Clerk Relationship Specialty Start Date End Date Fely Bey FNP [address] [place] [address] PCP - General Family Medicine 05/20/22 documented as of this encounter
--- OUTSIDE RECORDS SUMMARY | 2025-07-20 18:28 | XMS_ITS | Encounter Summary ---
Author Organization [employer] Address 75 [facility] 7 [place] [address] Care Team Providers Care Bright Cutter Name Role Phone Fely Bey Primary Care Provider [phone] Reason for Visit * Reason Comments Med Refill Encounter Details Date Type Department Care Team ([facility] Contact Info) Description 06/20/2025 Refill [facility]EDS [address] [place], [place] [phone] Fely Bey FNP [address] [place], [place] [phone] Iron deficiency Social History Tobacco Use Types [...] as of this encounter Visit Diagnoses Diagnosis Iron deficiency Disorders of iron metabolism documented in this encounter Additional Health Concerns Assessment Noted Time PHQ-9 Depression Total Score: 5 09/27/19 25 3:46 PM EST documented as of this encounter Care Teams Bright Cutter Relationship Specialty Start Date End Date Fely Bey FNP [address] [place] [address] PCP - General Family Medicine 05/20/22 documented as of this encounter
--- OUTSIDE RECORDS SUMMARY | 2025-07-20 18:28 | XMS_ITS | Encounter Summary ---
Author Organization [employer] Address 75 [facility] 7 [place] [address] Care Team Providers Care Seedling Puller Name Role Phone Fely Bey Primary Care Provider Reason for Visit * Reason Onset Date Comments Med Refill 07/05/2025 Encounter Details Date Type Department Care Team (Late st Contact Info) Description 07/05/2025 Refill [facility] MEDICINE [address] [place] [address] Fely Bey FNP [address] [place] [address] Class 1 obesity with body mass index [...] of this encounter Visit Diagnoses Diagnosis Class 1 obesity with body mass index (BMI) of 34.0 to 34.9 in adult, unspecified obesity type, unspecified whether serious comorbidity present documented in this encounter Additional Health Concerns Assessment Noted Time PHQ-9 Depression Total Score: 5 09/27/19 25 3:46 PM EST documented as of this encounter Care Teams Seedling Puller Relationship Specialty Start Date End Date Fely Bey FNP [address] [place] [address] PCP - General Family Medicine 05/20/22 documented as of this encounter
--- OUTSIDE RECORDS SUMMARY | 2025-07-20 18:28 | XMS_ITS | Encounter Summary ---
Author Organization [employer] Address 75 [facility] 7 [place] [address] Care Team Providers Care Chief Of Service Name Role Phone Fely Bey Primary Care Provider [phone] Reason for Visit * Reason Onset Date Comments ER Follow-up 08/10/2023 Encounter Details Date Type Department Care Team (Late st Contact Info) Description 08/10/2023 Telephone [facility] MEDICINE [address] [place] [address] Fely Bey FNP [address] [place] [address] ER Follow-up Social History Tobacco Use Types [...] regarding message below. Pt states going to [facility] ED on 08/08/23 [...] to go to ED. Pt agrees to [facility] appt tomorrow with provider to discuss further POC. ED notes printed and sent to scan. * Telephone Encounter - Christo López - 08/10/2023 8:25 AM EST Tc from patient requesting a ER follow up appt was in the ER at [facility] on 08/08 for lower back pain. If possible to contact patient after 2 pm after work. documented in this encounter Plan of Treatment Not on file documented as of this encounter Visit Diagnoses Not on filedocumented in this encounter Care Teams Chief Of Service Relationship Specialty Start Date End Date Fely Bey FNP [address] [place] [address] PCP - General Family Medicine 05/20/22 documented as of this encounter
--- OUTSIDE RECORDS SUMMARY | 2025-07-20 18:28 | XMS_ITS | Encounter Summary ---
Author Organization [employer] Address 75 [facility] 7 [place] [address] Care Team Providers Care Artificial Breast Fabricator Name Role Phone Fely Bey Primary Care Provider [phone] Reason for Visit * Reason Onset Date Comments Med Refill 05/23/2024 Encounter Details Date Type Department Care Team ([facility] st Contact Info) Description 05/23/2024 Refill [facility] MED & PEDS [address] [place], [place] [phone] Fely Bey FNP [address] [place], [place] [phone] Class 3 severe obesity without serious comorbidity [...] to 49.9 in adult, unspecified obesity type (HCC) documented in this encounter Additional Health Concerns Assessment Noted Time PHQ-9 Depression Total Score: 12 024 10:15 AM EDT documented as of this encounter Care Teams Artificial Breast Fabricator Relationship Specialty Start Date End Date Fely Bey FNP [address] [place] [address] PCP - General Family Medicine 05/20/22 documented as of this encounter
--- OUTSIDE RECORDS SUMMARY | 2025-07-20 18:28 | XMS_ITS | Encounter Summary ---
Author Organization [employer] Address 75 [facility] 7 [place] [address] Care Team Providers Care Hogshead Mat Inspector Name Role Phone Fely Bey Primary Care Provider [phone] Encounter Details Date Type Department Care Team ([facility] st Contact Info) Description 05/31/2025 Results Follow-Up [facility] MED & PEDS [address] [place] [address] Fely Bey FNP [address] [place], [place] [phone] Respiratory Viral Panel PCR Social History Tobacco Use Types Packs/Day Years [...] documented as of this encounter Care Teams Hogshead Mat Inspector Relationship Specialty Start Date End Date Fely Bey FNP [address] [place] [address] PCP - General Family Medicine 05/20/22 documented as of this encounter
--- OUTSIDE RECORDS SUMMARY | 2025-07-20 18:29 | XMS_ITS | Clinical Summary ---
Author Organization [employer] Address [address] [facility] 7t [place] [address] Care Team Providers Care Flosser Name Role Phone Fely Bey IZZY Primary Care Provider [phone] Allergies No known active allergies Medications D-MANNOSE PO Take by mouth. Over the counter supplement: O-POSITIVE. Contains Vit C, D-mannose, and Cranberry extract Active norethindrone (Micronor) 0.35 MG tabletIndication s:Encounter for initial prescription of contraceptive pills Take 1 tablet (0.35 mg) by mouth Once per day. 90 tablet 025 2025 Active Chelsea 30 MG tabletIndication s:Encounter for initial prescription of contraceptive pills TAKE 1 TABLET SOON POSSIBLE WITHIN 5 DAYS AFTER UNPROTECTED SEX OR IF YOU HAD A CONTROL FAILURE. MAY BE TAKEN WITH OR WITHOUT FOOD. 1 tablet 11 Active cyanocobalamin (Vitamin B-12) 1000 MCG tabletIndication s:Vitamin B12 deficiency Take 1 tablet (1,000 mcg) by mouth Once per day. 90 tablet 1 025 2025 Active cholecalciferol (Vitamin D3) 25 MCG (1000 UT) tabletIndication s:Vitamin D insufficiency Take 1 tablet (25 mcg) by mouth in the morning. 90 tablet 3 025 Active Magnesium 400 MG capsule Take 400 mg by mouth at bedtime. 90 capsule 025 Active ferrous gluconate (Fergon) 324 (38 Fe) MG tabletIndication s:Iron deficiency Take 1 pill every Wednesday, Wednesday, and Wednesday. Take with a full glass of water or Vit C containing juice, and ideally 1 hour before a meal or 2 hours after a meal 36 tablet 025 Active Tirzepatide-Weig ht Management (Zepbound) 7.5 MG/0.5ML solution auto-injector Inject 0.5 mL (7.5 mg) under the skin 1 (one) time per week. 2 mL 2 Active nitrofurantoin, macrocrystal-mon ohydrate, (Macrobid) 100 MG capsule Take 1 capsule (100 mg) by mouth 2 times daily for 5 days. 10 capsule 025 2024 Active Zepbound 5 MG/0.5ML solution auto-injectorInd ications:Class 1 obesity with body mass index (BMI) of 34.0 to 34.9 in adult, unspecified obesity type, unspecified whether serious comorbidity present INJECT 0.5 ML (5 MG) UNDER THE SKIN 1 (ONE) TIME PER WEEK. 2 mL 1 025 2024 Discontinued(T herapy completed) nitrofurantoin, macrocrystal-mon ohydrate, (Macrobid) 100 MG capsule Take 1 capsule (100 mg) by mouth 2 times daily for 5 days. 10 capsule 025 2024 Discontinued Active Problems Problem Noted Date Diagnosed Date Bilateral carpal tunnel syndrome 12/26/2024 Overview (05/30/2025): 12/26/24: EMG completed and demonstrated mild bilateral ulnar neuropathy across cubital tunnel and mild bilateral median neuropathy across carpal tunnel. Cont wrist splints [facility] Ortho consult Apr 2025: [...] neuropathy across carpal tunnel. Cont wrist splints [facility] Ortho consult Apr 2025: plan to proceed with right cubital tunnel release and right carpal tunnel release under general anesthesia. Chest wall pain 10/02/2024 Joint pain in both hands 09/27/2024 Assessment & Plan (03/28/2025 9:58 AM EDT): -JOSE, RF, CRP, sed rate wnl Oct 2024 -Intermittent swelling and joint pains in fingers -Referral to [facility] Ortho Assessment & Plan [...] Overview (03/28/2025): Lab Results Component Value Date [id number] 17.8 (L) 03/12/2025 [id number] 31.9 11/01/2024 [id number] 25.8 (L) 07/12/2024 Assessment & Plan (03/28/2025 [...] Encounters Date Type Department Care Team Description 07/20/2025 3:20 PM EDT Office Visit [facility] [address] [address] Swati Blount NP Dysuria (Primary Dx); Vaginal discharge 07/20/2025 Travel 07/05/2025 Refill [facility] [address] [place] [phone] Fely Bey, ASSEMBLER CARDS AND ANNOUNCEMENTS Class 1 obesity with body mass index (BMI) of 34.0 to 34.9 in adult, unspecified obesity type, unspecified whether serious comorbidity present 06/20/2025 Refill [facility] [address] [place] [address] PhalFely orona, ASSEMBLER CARDS AND ANNOUNCEMENTS Iron deficiency 05/31/2025 Results Follow-Up [facility] [address] [place] [address] Fely Bey, ASSEMBLER CARDS AND ANNOUNCEMENTS Respiratory Viral Panel PCR 05/30/2025 10:15 AM EDT Office Visit [address] [address] Fely Bey, ASSEMBLER CARDS AND ANNOUNCEMENTS Temporomandibular joint click (Primary Dx); Sore throat; Cubital tunnel syndrome of both upper extremities; Bilateral carpal tunnel syndrome; Class 1 obesity with body mass index (BMI) of 34.0 to 34.9 in adult, unspecified obesity type, unspecified whether serious comorbidity present 05/30/2025 Orders Only [facility] [address] [place] [address] Fely Bey, ASSEMBLER CARDS AND ANNOUNCEMENTS 05/30/2025 Travel 05/29/[address] [address] Fely Bey, ASSEMBLER CARDS AND ANNOUNCEMENTS CHART PREP 05/23/2025 Refill [facility] [address] [place] [address] Phalyeyo Fely, ASSEMBLER CARDS AND ANNOUNCEMENTS Class 1 obesity with body mass index (BMI) of 34.0 to 34.9 in adult, unspecified obesity type, unspecified whether serious comorbidity present 04/30/2025 Refill [facility] [address] [place] [address] Phalyeyo Fely, ASSEMBLER CARDS AND ANNOUNCEMENTS Iron deficiency (Primary Dx); Class 1 obesity with body mass index (BMI) of 34.0 to 34.9 in adult, unspecified obesity type, unspecified whether serious comorbidity present from Last 3 Months Immunizations Immunization Administration [...] 20 07/20/2025 3:44 PM EDT Oxygen Saturation 99% 05/30/2025 10:38 AM EDT Inhaled Oxygen Concentration - - Weight 78.1 kg (172 lb 3.2 oz) 07/20/2025 3:44 P M EDT Height 160 cm (5' 3 ) 07/20/2025 3:44 PM EDT Body Mass Index 30.5 07/20/2025 3:44 PM EDT Plan of Treatment Health Maintenance Due Date Last Done Comments DTaP/Tdap/Td Vaccines (6 - Td or Tdap) 10/31/2022 10/31/2012, 07/08/2004, 09/20/1996, Additional history exists COVID-19 Vaccine ( season) 2025 04/02/2022, 03/12/2022 Influenza Vaccine (#1) 2025 8, 08/14/2014, 10/24/2013, Additional history exists Cervical Cancer Screening 09/24/2025 HPV/Cotest 09/24/2025 09/24/2020 Pap Smear 09/24/2025 09/24/2020 Alcohol/Substance Use Screening 09/27/2025 09/27/2024 Depression Screening 09/27/2025 09/27/2024, 09/27/19 25 Disability Screening 03/28/2026 03/28/2025 SDOH Screening 03/28/2026 03/28/2025 Family Planning (PISQ) 04/02/2026 04/02/2025 Tobacco Screening 07/20/2026 07/20/2025 Lipid Panel 08/08/2026 08/08/2021, 07/10/2020 Zoster Vaccines [...] Routine 07/20/2025 3:57 PM EDT Vaginal discharge RESPIRATORY VIRAL PANEL PCR Routine 05/30/2025 1:47 PM EDT HIV 1/2 ANTIGEN/ANTIBODY, FOURTH GENERATION W/RFL Routine [...] Recently Relevant to Health Maintenance Results * (ABNORMAL) POCT urinalysis dipstick manually resulted (CPT 89309) (07/20/2025 4:14 PM EDT) Color, UA Yellow [...] Random) 07/20/2025 4:14 PM EDT Swati Blount DEBT COLLECTION SPECIALIST POINT OF CARE TEST ENTER/EDIT OR DERABLES Final Result * POCT , urine manually resulted (07/20/2025 3:57 PM EDT) Pathologist [facility] Preg Test, Ur Negative Negative, Indeterminate, None Detected, Invalid, Specimen unsatisfactory for evaluation, Weakly Positive, 2+ Urine 07/20/2025 3:57 PM EDT Swati Blount DEBT COLLECTION SPECIALIST POINT OF CARE TEST ENTER/EDIT OR DERABLES Final Result * Respiratory Viral Panel PCR (05/30/2025 1:47 PM EDT) Pathologist [facility] Adenovirus PCR Not Detected Not Detect. [facility] Bordetella pertussis PCR Not Detected Not Detect. [facility] Comment:Interpret results wi th caution. If B. pertussis isspecifically suspected, additional testing using analternate method is recommended. Bordetella parapertussis PCR Not Detected Not Detect. [facility] Chlamydia pneumoniae PCR Not Detected Not Detect. [facility] Coronavirus 229E PCR Not Detected Not Detect. [facility] Coronavirus HKU1 PCR Not Detected Not Detect. [facility] Coronavirus NL63 PCR Not Detected Not Detect. [facility] Coronavirus OC43 PCR Not Detected Not Detect. [facility] SARS-CoV-2 PCR Not Detected Not Detect. [facility] Comment:SARS-CoV-2 not detec nan by real-time RT-PCR.Note: If clinical suspicion for Sars-CoV-2 is high, continueto maintain precautions and consider repeat testing.Test results should be interpreted in the context ofclinical findings and other laboratory data.Rare polymorphisms exist that could lead to false-negativeor false-positive results. If results do not match theclinical findings, additional testing should be considered.Results reported to [facility].This test has been authorized by the FDA under the EmergencyUse Authorization (EUA) for use by authorized laboratories. Influenza A PCR Not Detected Not Detect. [facility] Influenza A Subtype H1 Not Detected Not Detect. [facility] Influenza A H1-2009 PCR Not Detected Not Detect. [facility] Influenza A Subtype H3 Not Detected Not Detect. [facility] Influenza B PCR Not Detected Not Detect. [facility] Human metapneumovirus PCR Not Detected Not Detect. [facility] Rhino/Enterovirus PCR Not Detected Not Detect. [facility] Mycoplasma pneumoniae PCR Not Detected Not Detect. [facility] Parainfluenza 1 PCR Not Detected Not Detect. [facility] Parainfluenza 2 PCR Not Detected Not Detect. [facility] Parainfluenza 3 PCR Not Detected Not Detect. [facility] Parainfluenza 4 PCR Not Detected Not Detect. [facility] RSV PCR Not Detected Not Detect. [facility] Resp Panel NA Note See Note H [facility] Comment:All results must be correlated with clinical findings.Negative results should not be used as the sole basis fordiagnosis, treatment, or other management decisions.A negative result does not exclude the possibility of viralor bacterial infection. Negative results may occur from thepresence of sequence variants in the region targeted by theassay, the presence of inhibitors, an infection caused by anorganism not detected by the panel, or lower respiratorytract infections that are not detected by a nasopharyngealswab specimen. Test results may also be affected byconcurrent antiviral/antibacterial therapy or levels oforganism in the specimen that are below the limit ofdetection for this test.This assay is performed by Multiplexed PCR, utilizing [employer] Film Array. 05/30/2025 1:47 PM EDT 05/30/2025 6:56 PM EDT us Fely Bey ASSEMBLER CARDS AND ANNOUNCEMENTS LAB BLOOD ORDERABLES Final Res ult [facility] [address] [place] [address] [phone] * HIV 1/2 ANTIGEN/ANTIBODY,FOURTH GENERATION W/RFL (07/20/2022 11:52 AM EDT) Pathologist [facility] HIV-1/2 ANTIGEN AND ANTIBODIES, 4TH GENERATION W/ [...] purpose. For additional information please refer to http://education.VisualOn/faq/EVF700 (This link is being provided for informational/ educational purposes only.) The performance of this assay has not been clinically validated in patients less than 2 years old. 07/20/2022 11:5 2 AM EDT Yaritza Aranda [facility] LAB BLOOD ORDERABLES Courtney l Result [facility] * HEPATITIS C AB W/REFL TO HCV RNA, QN, PCR (06/01/2022 10:49 AM EDT) HEPATITIS C ANTIBODY NON-REACT MARYLU NON-REACT MARYLU [facility] INDEX 0.08 <1.00 [facility] Comment: HCV antibody was non-reactive. There is no laboratory evidence of HCV infection. In most cases, no further action is required. However, if recent HCV exposure is suspected, a test for HCV RNA (test code 52689) is suggested. For additional information please refer to http://education.VisualOn/faq/ELC81t5 (This link is being provided for informational/ educational purposes only.) 06/01/2022 10:4 9 AM EDT us Milla Castillo NP HISTORICAL/NON ORDERABLE LABS Final Result [facility] [address] * (ABNORMAL) LIPID PANEL, STANDARD (08/08/2021 9:18 AM EST) Chol/HDLC Ratio 3.7 <5.0 (calc) [facility] Cholesterol, Total 159 <200 mg/dL [facility] HDL Cholesterol 43(L) > OR = 50 mg/dL [facility] LDL Cholesterol 99 mg/dL (calc) [facility] Comment: Reference range: <100 Desirable range <100 mg/dL for primary prevention; <70 mg/dL for patients with CHD or diabetic patients with > or = 2 CHD risk factors. LDL-C is now calculated using the Negro calculation, which is a validated novel method providing better accuracy than the Friedewald equation in the estimation of LDL-C. Cristobal SS et al. DIONNE. 2013;310(19): 1302-3714 (http://education.Zango/faq/RRA304) Non-HDL Cholesterol 116 <130 mg/dL (calc) [facility] Comment: For patients with diabetes plus 1 major ASCVD risk factor, treating to a non-HDL-C goal of <100 mg/dL (LDL-C of <70 mg/dL) is considered a therapeutic option. Triglycerides 78 <150 mg/dL [facility] 08/08/2021 9:18 AM EST us Milla Castillo NP LAB BLOOD ORDERABLES Final Res ult [facility] [address] [place] [address], * THINPREP TIS PAP (09/24/2020 12:00 AM EST) Pathologist [facility] Clinical Information: None given [facility] COMMENT SEE COMMENT [facility]OUNDAT[facility] ON [...] has been evaluated with computer assisted technology. [facility] Iron Miner Blasting : SEE COMMENT [facility] Comment: SXA, CT(ASCP) CT screening location: [address] [address] Interpretation/R esult: Negative for intraepithelial lesion or malignancy. [facility] LMP: NONE GIVEN [facility] Prev. BX: NONE GIVEN [facility] Prev. PAP: NONE GIVEN [facility] SOURCE: None given [facility] Statement Of Adequacy: SEE COMMENT [facility] Comment: Satisfactory for evaluation. Endocervical/transformation zone component absent. Age and/or menstrual status not provided 09/24/2020 Historical Provider MD LAB PATHOLOGY ORDERABLES Final Result Performing Organization Address [facility] Co de Phone Number [facility] [address] * HPV mRNA E6/E7 (09/24/2020 12:00 AM EST) HPV nRNA E6/E7 Not Detected Not Detected [facility] Comment: This test was performed using the APTIMA HPV Assay ([employer] This assay detects E6/E7 viral messenger RNA (mRNA) from 14 high-risk HPV types (16,18,31,33,35,39,45,51,52,56,58,59,66,68). The analytical performance characteristics of this assay have been determined by [employer]. The modifications have not been cleared or approved by the FDA. This assay has been validated pursuant to the CLIA regulations and is used for clinical purposes. 09/24/2020 Historical Provider MD LAB BLOOD ORDERABLES Courtney l Result Performing Organization Address [facility]/ZIP Co de Phone Number [facility] [address] from Last 3 Months or Most Recently Relevant to Health Maintenance Insurance [facility] Care Teams Flosser Relationship Specialty Start Date End Date Fely Bey FNP [address] [place] [phone] PCP - General Family Medicine 05/20/22
--- OUTSIDE RECORDS SUMMARY | 2025-07-20 18:29 | XMS_ITS | Encounter Summary ---
Author Organization [employer] Address [address] [facility] 7 [place] [address] Care Team Providers Care Tin Can Feeder Name Role Phone Fely Bey Primary Care Provider [phone] Reason for Visit * Reason Comments Med Refill Encounter Details Date Type Department Care Team (Late st Contact Info) Description 02/05/2025 Refill [facility] [address] [place] [address] Fely Bey FNP [address] [place], [place] [phone] Social History Tobacco Use Types Packs/Day Years [...] documented as of this encounter Care Teams Tin Can Feeder Relationship Specialty Start Date End Date Fely Bey FNP [address] [place] [address] PCP - General Family Medicine 05/20/22 documented as of this encounter
--- OUTSIDE RECORDS SUMMARY | 2025-07-20 18:29 | XMS_ITS | Encounter Summary ---
Author Organization [employer] Address [address] [facility] 7t [place] [address] Care Team Providers Care Statistical Machine Mechanic Name Role Phone Fely Bey Primary Care Provider [phone] Encounter Details Date Type Department Care Team (Late st Contact Info) Description 06/28/2024 Orders Only [facility] [address] [place] [address] Fely eBy FNP [address] [place] [address] Class 3 severe obesity due to excess [...] (BMI) of 45.0 to 49.9 in adult (HCC) documented in this encounter Additional Health Concerns Assessment Noted Time PHQ-9 Depression Total Score: 12 024 10:15 AM EDT documented as of this encounter Care Teams Statistical Machine Mechanic Relationship Specialty Start Date End Date Fely Bey FNP [address] [place] [phone] PCP - General Family Medicine 05/20/22 documented as of this encounter
--- OUTSIDE RECORDS SUMMARY | 2025-07-20 18:29 | XMS_ITS | Encounter Summary ---
Author Organization [employer] Address [address] [facility] 7 [place] [address] Care Team Providers Care Corrections Unit Supervisor Name Role Phone Fely Bey Primary Care Provider [phone] Encounter Details Date Type Department Care Team ([facility] st Contact Info) Description 03/12/2025 Orders Only [facility] [address] [place], [place] [phone] Fely Bey FNP [address] [place], [place] [phone] Vitamin D insufficiency (Primary Dx); Healthcare maintenance; [...] Vitamin B12 241 200 - 900 pg/mL [facility] Comment:NORMAL 200-900 PG/ML INDETERMINATE 160-199 PG/ML DEFICIENT < 160 PG/ML Blood Venous blood specimen / Unknown 03/12/2025 3:55 PM EDT 03/12/2025 3:[address] [facility] LAB BLOOD ORDERABLES Final Res ult Performing Organization Address City/[facility]/ZIP Co de Phone Number [facility] [address] [place] [address] [phone] * (ABNORMAL) Vitamin D, 25-Hydroxy, Total, Immunoassay (03/12/2025 3:55 PM EDT) Pathologist [facility] Vitamin D 25-OH Total 17.8(L) >30 ng/mL [facility] Comment: Health Based Reference Values*< 20 ng/mL [id number] ng/mL Insufficient> 30 ng/mL Sufficient*Nithya MONTILLA. N [...] EDT 03/12/2025 3:[address] [facility] LAB BLOOD ORDERABLES Final Res ult Performing Organization Address [facility]/ZIP Co de Phone Number [facility] [address] [place] [address] [phone] * Ferritin (03/12/2025 3:55 PM EDT) Pathologist [facility] Ferritin 12 10 - 122 ng/mL [facility] Blood Venous blood specimen / Unknown 03/12/2025 3:55 PM EDT 03/12/2025 3:55 PM EDT Fely Bey REVERBERATORY FURNACE SUPERVISOR LAB BLOOD ORDERABLES Final Res ult Performing Organization Address [facility] de Phone Number [facility] [address] [place] [phone] * (ABNORMAL) Iron And Total Iron Binding Capacity (03/12/2025 3:55 PM EDT) [facility] Iron 37 30 - 160 mcg/dL [facility] Total Iron Binding Capacity 286 228 - 428 mcg/dL [facility] Percent Iron Saturation 13(L) 15 - 50 % [facility] Unsaturated Iron Binding 249 ug/dL [facility] Blood Venous blood specimen / Unknown 03/12/2025 3:55 PM EDT 03/12/2025 3:55 PM EDT Fely Bey REVERBERATORY FURNACE SUPERVISOR LAB BLOOD ORDERABLES Final Res ult Performing Organization Address [facility] de Phone Number [facility] [address] [place] [phone] * (ABNORMAL) CBC auto differential (03/12/2025 3:55 PM EDT) [facility] White Blood Count 7.5 4.8 - 10.8 X10*3/uL [facility] Red Blood Count 4.30 4.20 - 5.50 X10*6/uL [facility] Hemoglobin 11.5(L) 12.0 - 16.0 g/dl [facility] Hematocrit 36.3(L) 37.0 - 47.0 % [facility] Mean Corpuscular Volume 84.4 80.0 - 98.0 fL [facility] Mean Corpuscular Hemoglobin 26.7(L) 27.0 - 33.0 pg [facility] Mean Corpuscular HGB Conc 31.7 31.0 - 35.0 g/dl [facility] Red Cell Distribution Width 14.4 11.0 - 16.0 % [facility] Platelet Count 269 160 - 400 X10*3/uL [facility] Mean Platelet Volume 11.1 9.4 - 12.3 fL [facility] Neutrophils Percent Auto 70.1 45 - 73 % [facility] Imm Gran Pct Auto 0.1 0.0 - 0.4 % [facility] Lymphocytes Percent Auto 23.6 20 - 40 % [facility] Monocytes Percent Auto 5.2 2 - 11 % [facility] Eosinophils Percent Auto 0.5 0 - 4 % [facility] Basophils Percent Auto 0.5 0 - 2 % [facility] NRBC Pct Auto 0.0 0.0 - 0.2 /100WBC [facility] Neutrophils Absolute Auto 5.3 2.0 - 8.3 x10*3/uL [facility] Imm Gran Abs Auto 0.01 0.00 - 0.03 X10*3/uL [facility] Lymphocytes Absolute Auto 1.8 1.2 - 4.9 X10*3/uL [facility] Monocytes Absolute Auto 0.4 0.1 - 1.2 X10*3/uL [facility] Eosinophils Absolute Auto 0.0 0.0 - 0.4 X10*3/uL [facility] Basophils Absolute Auto 0.0 0.0 - 0.2 X10*3/uL [facility] NRBC Abs Auto 0.000 0.0 - 0.012 X10*3/uL [facility] Blood Venous blood specimen / Unknown 03/12/2025 3:55 PM EDT 03/12/2025 3:55 PM EDT us Fely Bey REVERBERATORY FURNACE SUPERVISOR LAB BLOOD ORDERABLES Final Res ult [facility] [address] [place] [address] [phone] documented in this encounter Visit Diagnoses Diagnosis Vitamin D insufficiency- Primary Healthcare maintenance Iron deficiency Disorders of iron metabolism documented in this encounter Additional Health Concerns Assessment Noted Time PHQ-9 Depression Total Score: 5 09/27/19 25 3:46 PM EST documented as of this encounter Care Teams Corrections Unit Supervisor Relationship Specialty Start Date End Date Fely Bey FNP [address] [place] [address] PCP - General Family Medicine 05/20/22 documented as of this encounter
--- OUTSIDE RECORDS SUMMARY | 2025-07-20 18:29 | XMS_ITS | Encounter Summary ---
Author Organization [employer] Address [address] [facility] 7 [place] [address] Care Team Providers Care Engine Turner Name Role Phone Fely Bey Primary Care Provider [phone] Encounter Details Date Type Department Care Team ([facility] st Contact Info) Description 07/31/2024 Orders Only [facility] [address] [place], [place] [phone] Fely Bey FNP [address] [place], [place] [phone] Social History Tobacco Use Types Packs/Day Years [...] documented as of this encounter Care Teams Engine Turner Relationship Specialty Start Date End Date Fely Bey FNP [address] [place] [phone] PCP - General Family Medicine 05/20/22 documented as of this encounter
--- OUTSIDE RECORDS SUMMARY | 2025-07-20 18:29 | XMS_ITS | Encounter Summary ---
Author Organization [employer] Address 75 [facility] 7 [place] [address] Care Team Providers Care Header Operator Name Role Phone Fely Bey Primary Care Provider [phone] Reason for Visit * Reason Onset Date Comments Med Refill 08/10/2024 Encounter Details Date Type Department Care Team (Late st Contact Info) Description 08/10/2024 Refill [facility] MEDICINE [address] [place] [address] Fely Bey FNP [address] [place] [address] Class 3 severe obesity due to excess [...] documented as of this encounter Care Teams Header Operator Relationship Specialty Start Date End Date Fely Bey FNP [address] [place] [address] PCP - General Family Medicine 05/20/22 documented as of this encounter
--- OUTSIDE RECORDS SUMMARY | 2025-07-20 18:29 | XMS_ITS | Encounter Summary ---
Author Organization [employer] Address 75 [facility] 7 [place] [address] Care Team Providers Care Engineering Faculty Member Name Role Phone Fely Bey Primary Care Provider [phone] Reason for Visit * Reason Comments Med Refill Encounter Details Date Type Department Care Team (Late st Contact Info) Description 07/17/2024 Refill [facility] MEDICINE [address] [place] [address] Fely Bey FNP [address] [place], [place] [phone] Class 3 severe obesity due to excess [...] documented as of this encounter Care Teams Engineering Faculty Member Relationship Specialty Start Date End Date Fely Bey FNP [address] [place] [address] PCP - General Family Medicine 05/20/22 documented as of this encounter
[2025-07-21 14:00] LABS: Bacterial Vaginosis PCR NEGATIVE (Negative); Candida Group PCR DETECTED (Not Detect); Candida glab krusei PCR NOT DETECTED (Not Detect); Trichomonas vaginalis PCR NOT DETECTED (Not Detect)
[2025-07-21 16:09] LABS: CT PCR NOT DETECTED (Not Detect.); NG PCR NOT DETECTED (Not Detect.)
== END 2025-07-20 18:26 | disposition home or self-care (01) ==
LOC: HO.HHCLNP 18:25
PROVIDERS: Visit Provider Nurse Practitioner Family
DX: R30.0 Dysuria (principal); N89.8 Other specified noninflammatory disorders of vagina; Z20.2 Contact with and (suspected) exposure to infections with a predominantly sexual mode of transmission
CPT/HCPCS: 81515; 87086; 87491; 87591

== ENCOUNTER 2025-08-03 09:54 | Outpatient (REF) | payer MEDICAID, SELFPAY | END 2025-08-03 09:55 | disposition home or self-care (01) | LOC: HO.LAB 09:54 | PROVIDERS: Visit Provider Registered Nurse | DX: Z32.01 Encounter for pregnancy test, result positive (principal) | CPT/HCPCS: 36415; 84702 ==

== ENCOUNTER 2025-08-06 09:27 | Outpatient (REF) | payer MEDICAID, SELFPAY | END 2025-08-06 09:28 | disposition home or self-care (01) | LOC: HO.LAB 09:27 | PROVIDERS: PCP Registered Nurse; Visit Provider Registered Nurse | DX: Z32.00 Encounter for pregnancy test, result unknown (principal) | CPT/HCPCS: 36415; 84702 ==

== ENCOUNTER 2025-08-15 12:47 | Outpatient (REF) | payer MEDICAID, SELFPAY ==
--- OUTSIDE RECORDS SUMMARY | 2025-08-06 16:00 | XMS_ITS | Encounter Summary ---
Author Organization [employer] Address 75 [facility] 7 [place] [address] Care Team Providers Care Remelt Sugar Boiler Name Role Phone Fely Branch Primary Care Provider [phone] Reason for Referral * Consultation (Routine) - Closed Specialty Diagnoses / Procedures Referred By Haily olmedo Referred To Contact Obstetrics and Gynecology Diagnoses Less than 8 weeks gestation of Fely Branch FNP [address] [place] [address] Phone: tel: fax: [facility] Referral ID Status Reason Start Date Expiration Date V isits Requested Visits Authorized [id number] Closed Specialty Services Required 08/13/2025 08/13/2026 1 1 Encounter Details Date Type Department Care Team (Late st Contact Info) Description 08/06/2025 4:00 PM EST Telemedicine [facility] CHC MED & PEDS [address] [place] [address] Fely Branch FNP [address] [place] [address] Less than 8 weeks gestation of (Primary Dx) Social History Tobacco Use Types Packs/Day Years [...] AM EDT documented as of this encounter Progress Notes * Fely Branch, GARNETTER - 08/06/2025 4:00 PM EST Subjective: Joyce Adam is a 35 y.o. female who presents via telehealth: positive test. HPI with LMP 07/01/25 She took home test and was positive. Serum HCG also consistent with . She was previously using Zepbound. Currently OFF of any medications aside from vitamin. Previous care at [facility], interested in current care at [facility], referral placed. Denies any current morning sickness or nausea Lab Results Component Value Date HCGQN 2,140 08/06/2025 HCGQN 761 08/03/2025 Telehealth: Patient gave verbal consent to be seen in this manner. A complete assessment and plan is detailed in the note, all of which were conducted remotely using virtual technology. Patient identity was verbally confirmed with 2 identifiers at the start of the visit. Patient verbalized being located in the [facility] during the televisit. Provider was located in an Ambulatory examroom/outside the office at a secure location during the visits. Problem List[1] Review of Systems Constitutional: Negative for chills and fever. Gastrointestinal: Negative for diarrhea, nausea and vomiting. Allergies[2] Objective: Telehealth - No Physical Exam Psych: Alert & oriented x 3. Normal mood and affect. Assessment/Plan: Problem List Items Addressed This Visit Visit Diagnoses Less than 8 weeks gestation of - Primary - with LMP 07/01/25, approx 5 weeks gestation - Cont with daily - Referral to [facility] for care, interested in [facility] if [facility] not available Relevant Orders Referral to Obstetrics / Gynecology Follow up: routine care, sooner as needed ADD: 08/13/25 - referral for care sent to [facility] as [facility] not able to accept referral. [1] Patient Active Problem List Diagnosis Obesity Vitamin D insufficiency Iron deficiency Healthcare maintenance Joint pain in both hands Chest wall pain Bilateral carpal tunnel syndrome Cubital tunnel syndrome of both upper extremities [2] No Known Allergies documented in this encounter Miscellaneous Notes * Addendum Note - IZZY Samaniego - 08/06/2025 4:00 PM ESTAddended by: FELY BRANCH on: 08/13/2025 09:05 AM Modules accepted: Orders documented in this encounter Plan of Treatment Scheduled Referrals Name Type Priority Associated Diagnoses Order Schedule Referral to Obstetrics / Gynecology Outpatient Referral Routine Less than 8 weeks gestation of Expected: 08/13/2025 (Approximate), Expires: 08/13/2026 documented as of this encounter Visit Diagnoses Diagnosis Less than 8 weeks gestation of - Primary documented in this encounter Additional Health Concerns Assessment Noted Time PHQ-9 Depression Total Score: 5 09/27/19 25 3:46 PM EST documented as of this encounter Care Teams Remelt Sugar Boiler Relationship Specialty Start Date End Date Fely Branch FNP [address] [place] [address] PCP - General Family Medicine 05/20/22 documented as of this encounter
--- OUTSIDE RECORDS SUMMARY | 2025-08-15 15:49 | XMS_ITS | Encounter Summary ---
Author Organization [employer] Address 75 [facility] 7 [place] [address] Care Team Providers Care Rn Recovery Name Role Phone Fely Bey Primary Care Provider [phone] Encounter Details Date Type Department Care Team ([facility] st Contact Info) Description 07/31/2024 Orders Only [facility] CH[facility] MED & PEDS [address] [place], [place] [phone] Fely Bey FNP [address] [place], [place] [phone] Social History Tobacco Use Types Packs/Day Years [...] as of this encounter Care Teams Rn Recovery Relationship Specialty Start Date End Date Fely Bey FNP [address] [place] [address] PCP - General Family Medicine 05/20/22 documented as of this encounter
--- OUTSIDE RECORDS SUMMARY | 2025-08-15 15:49 | XMS_ITS | Encounter Summary ---
Author Organization [email or web address] Address 75 [facility] 7 [place] [address] Care Team Providers Care Water Conservationist Name Role Phone Fely Bey Primary Care Provider [phone] Reason for Visit * Reason Onset Date Comments Med Refill 05/23/2024 Encounter Details Date Type Department Care Team ([facility] st Contact Info) Description 05/23/2024 Refill [facility] MED [facility] PEDS [address] [place], [place] [phone] Fely Bey FNP [address] [place], [place] [phone] Class 3 severe obesity without serious comorbidity [...] documented as of this encounter Care Teams Water Conservationist Relationship Specialty Start Date End Date Fely Bey FNP [address] [place] [address] PCP - General Family Medicine 05/20/22 documented as of this encounter
--- OUTSIDE RECORDS SUMMARY | 2025-08-15 15:49 | XMS_ITS | Encounter Summary ---
Author Organization [employer] Address 75 [facility] 7 [place] [address] Care Team Providers Care It Application Support Analyst Name Role Phone Fely Bey Primary Care Provider [phone] Encounter Details Date Type Department Care Team ([facility] st Contact Info) Description 08/15/2025 Orders Only [facility] CHC MED & PEDS [address] [place], [place] [phone] Fely Bey FNP [address] [place], [place] [phone] Healthcare maintenance (Primary Dx) Social History Tobacco Use Types [...] Associated Diagnosis Comments HCG, TOTAL, QN Routine 08/15/2025 1:20 PM EST Healthcare maintenance documented in this encounter Results * hCG, Total, Quantitative (08/15/2025 1:20 PM EST) HCG Quantitative 12,007 mIU/mL [facility] Comment:Weeks post LMP Appro ximate hCG(Last Menstrual Period) Range (mIU/ml)3 - 4 weeks 9 - 1304 - 5 weeks 75 - 2,6005 - 6 weeks 850 - 20,8006 - 7 weeks 4000 - 100,2007 - 12 weeks 11,500 - 289,25955 - 16 weeks 18,300 - 137,33383 - 29 weeks (2nd trimester) 1,400 - 53,26798 - 41 weeks (3rd trimester) 940 - 60,000The Hurley B- hCG assay is used for the early detection ofpregnancy; it cannot be used to diagnose any conditionunrelated to . If a B-hCG level is not supportedby the clinical evidence, results should be confirmed by analternative method (qualitative urine hCG, for example). Blood Venous blood specimen / Unknown 08/15/2025 1:20 PM EST 08/15/2025 1:20 PM EST Fely MAGANA LAB BLOOD ORDERABLES Final Res ult [facility] [address] [place] [address] [phone] documented in this encounter Visit Diagnoses Diagnosis Healthcare maintenance- Primary documented in this encounter Additional Health Concerns Assessment Noted Time PHQ-9 Depression Total Score: 5 09/27/19 25 3:46 PM EST documented as of this encounter Care Teams It Application Support Analyst Relationship Specialty Start Date End Date Fely Bey FNP [address] [place] [address] PCP - General Family Medicine 05/20/22 documented as of this encounter
--- OUTSIDE RECORDS SUMMARY | 2025-08-15 15:49 | XMS_ITS | Encounter Summary ---
Author Organization [employer] Address 75 [facility] 7t [place] [address] Care Team Providers Care Azure Principal Solution Specialist Name Role Phone Fely Bey Primary Care Provider [phone] Encounter Details Date Type Department Care Team (Late st Contact Info) Description 06/28/2024 Orders Only [facility] MEDICINE [address] [place] [address] Fely Bey FNP [address] [place] [address] Class 3 severe obesity due to excess [...] documented as of this encounter Care Teams Azure Principal Solution Specialist Relationship Specialty Start Date End Date Fely Bey FNP [address] [place] [address] PCP - General Family Medicine 05/20/22 documented as of this encounter
--- OUTSIDE RECORDS SUMMARY | 2025-08-15 15:49 | XMS_ITS | Encounter Summary ---
Author Organization [employer] Address 75 [facility] 7 h [place] [address] Care Team Providers Care Retail Account Specialist Name Role Phone Fely Bey Primary Care Provider [phone] Encounter Details Date Type Department Care Team ([facility] st Contact Info) Description 03/12/2025 Orders Only [facility] CHC MED & PEDS [address] [place], [place] [phone] Fely Bey FNP [address] [place], [place] [phone] Vitamin D insufficiency (Primary Dx); Healthcare maintenance; [...] Vitamin B12 241 200 - 900 pg/mL [facility] Comment:NORMAL 200-900 PG/M L INDETERMINATE 160-199 PG/ML DEFICIENT < 160 PG/ML Blood Venous blood specimen / Unknown 03/12/2025 3:55 PM EDT 03/12/2025 3:55 PM EDT Fely Bey [facility] LAB BLOOD ORDERABLES Final Res ult Performing Organization Address City/[facility]/ZIP Co de Phone Number [facility] [address] [place] [address] [phone] * (ABNORMAL) Vitamin D, 25-Hydroxy, Total, Immunoassay (03/12/2025 3:55 PM EDT) Vitamin D 25-OH Total 17.8(L) >30 ng/mL [facility] Comment: Health Based Reference Values*< 20 ng/mL [id number] ng/mL Insufficient> 30 ng/mL Sufficient*Nithya MONTILLA. N [...] EDT 03/12/2025 3:55 PM EDT Fely Bey [facility] LAB BLOOD ORDERABLES Final Res ult Performing Organization Address [facility]/ZIP Co de Phone Number [facility] [address] [place] [address] [phone] * Ferritin (03/12/2025 3:55 PM EDT) Pathologist [facility] Ferritin 12 10 - 122 ng/mL [facility] Blood Venous blood specimen / Unknown 03/12/2025 3:55 PM EDT 03/12/2025 3:55 PM EDT Fely Bey DEPUTY CLERK OF COURT LAB BLOOD ORDERABLES Final Res ult Performing Organization Address [facility] de Phone Number [facility] [address] [place] [phone] * (ABNORMAL) Iron And Total Iron Binding Capacity (03/12/2025 3:55 PM EDT) [facility] Iron 37 30 - 160 mcg/dL [facility] Total Iron Binding Capacity 286 228 - 428 mcg/dL [facility] Percent Iron Saturation 13(L) 15 - 50 % [facility] Unsaturated Iron Binding 249 ug/dL [facility] Blood Venous blood specimen / Unknown 03/12/2025 3:55 PM EDT 03/12/2025 3:55 PM EDT Fely Bey DEPUTY CLERK OF COURT LAB BLOOD ORDERABLES Final Res ult Performing Organization Address [facility] de Phone Number [facility] [address] [place] [phone] * (ABNORMAL) CBC auto differential (03/12/2025 3:55 PM EDT) [facility] White Blood Count 7.5 4.8 - 10.8 X10*3/uL [facility] Red Blood Count 4.30 4.20 - 5.50 X10*6/uL [facility] Hemoglobin 11.5(L) 12.0 - 16.0 g/dl [facility] Hematocrit 36.3(L) 37.0 - 47.0 % [facility] Mean Corpuscular Volume 84.4 80.0 - 98.0 fL [facility] Mean Corpuscular Hemoglobin 26.7(L) 27.0 - 33.0 pg [facility] Mean Corpuscular HGB Conc 31.7 31.0 - 35.0 g/dl [facility] Red Cell Distribution Width 14.4 11.0 - 16.0 % [facility] Platelet Count 269 160 - 400 X10*3/uL [facility] Mean Platelet Volume 11.1 9.4 - 12.3 fL [facility] Neutrophils Percent Auto 70.1 45 - 73 % [facility] Imm Gran Pct Auto 0.1 0.0 - 0.4 % [facility] Lymphocytes Percent Auto 23.6 20 - 40 % [facility] Monocytes Percent Auto 5.2 2 - 11 % [facility] Eosinophils Percent Auto 0.5 0 - 4 % [facility] Basophils Percent Auto 0.5 0 - 2 % [facility] NRBC Pct Auto 0.0 0.0 - 0.2 /100WBC [facility] Neutrophils Absolute Auto 5.3 2.0 - 8.3 x10*3/uL [facility] Imm Gran Abs Auto 0.01 0.00 - 0.03 X10*3/uL [facility] Lymphocytes Absolute Auto 1.8 1.2 - 4.9 X10*3/uL [facility] Monocytes Absolute Auto 0.4 0.1 - 1.2 X10*3/uL [facility] Eosinophils Absolute Auto 0.0 0.0 - 0.4 X10*3/uL [facility] Basophils Absolute Auto 0.0 0.0 - 0.2 X10*3/uL [facility] NRBC Abs Auto 0.000 0.0 - 0.012 X10*3/uL [facility] Blood Venous blood specimen / Unknown 03/12/2025 3:55 PM EDT 03/12/2025 3:55 PM EDT us Fely Bey DEPUTY CLERK OF COURT LAB BLOOD ORDERABLES Final Res ult [facility] [address] [place] [phone] documented in this encounter Visit Diagnoses Diagnosis Vitamin D insufficiency- Primary Healthcare maintenance Iron deficiency Disorders of iron metabolism documented in this encounter Additional Health Concerns Assessment Noted Time PHQ-9 Depression Total Score: 5 09/27/19 25 3:46 PM EST documented as of this encounter Care Teams Retail Account Specialist Relationship Specialty Start Date End Date Fely Bey FNP [address] [place] [address] PCP - General Family Medicine 05/20/22 documented as of this encounter
--- OUTSIDE RECORDS SUMMARY | 2025-08-15 15:49 | XMS_ITS | Encounter Summary ---
Author Organization [employer] Address 75 [facility] 7 [place] [address] Care Team Providers Care Sagger Filler Name Role Phone Fely eBy Primary Care Provider [phone] Reason for Visit * Reason Comments Med Refill Encounter Details Date Type Department Care Team ([facility] Contact Info) Description 06/20/2025 Refill [facility] CHC MED & PEDS [address] [place], [place] [phone] Fely Bey FNP [address] [place], [place] [phone] Iron deficiency Social History Tobacco Use Types [...] documented as of this encounter Care Teams Sagger Filler Relationship Specialty Start Date End Date Fely Bey FNP [address] [place] [address] PCP - General Family Medicine 05/20/22 documented as of this encounter
--- OUTSIDE RECORDS SUMMARY | 2025-08-15 15:49 | XMS_ITS | Encounter Summary ---
Author Organization [employer] Address 75 [facility] 7 [place] [address] Care Team Providers Care Bessemer Regulator Name Role Phone Fely Bey Primary Care Provider [phone] Reason for Visit * Reason Comments Med Refill Encounter Details Date Type Department Care Team (Late st Contact Info) Description 07/17/2024 Refill [facility] MEDICINE [address] [place] [address] Fely Bey FNP [address] [place], [place] [phone] Class 3 severe obesity due to excess [...] documented as of this encounter Care Teams Bessemer Regulator Relationship Specialty Start Date End Date Fely Bey FNP [address] [place] [address] PCP - General Family Medicine 05/20/22 documented as of this encounter
--- OUTSIDE RECORDS SUMMARY | 2025-08-15 15:49 | XMS_ITS | Encounter Summary ---
Author Organization [employer] Address 75 [facility] 7 [place] [address] Care Team Providers Care Movie Theater Manager Name Role Phone Fely Bey Primary Care Provider [phone] Reason for Visit * Reason Onset Date Comments Med Refill 07/05/2025 Encounter Details Date Type Department Care Team (Late st Contact Info) Description 07/05/2025 Refill [facility] MEDICINE [address] [place] [address] Fely Bey FNP [address] [place] [address] Class 1 obesity with body mass index [...] documented as of this encounter Care Teams Movie Theater Manager Relationship Specialty Start Date End Date Fely Bey FNP [address] [place] [address] PCP - General Family Medicine 05/20/22 documented as of this encounter
--- OUTSIDE RECORDS SUMMARY | 2025-08-15 15:49 | XMS_ITS | Encounter Summary ---
Author Organization [employer] Address 75 [facility] 7 [place] [address] Care Team Providers Care At Home Independent Call Center Agent Name Role Phone Fely Bey Primary Care Provider [phone] Reason for Visit * Reason Comments Med Refill Encounter Details Date Type Department Care Team (Late st Contact Info) Description 02/05/2025 Refill [facility] MEDICINE [address] [place] [address] Fely Bey FNP [address] [place], [place] [phone] Social History Tobacco Use Types Packs/Day Years [...] documented as of this encounter Care Teams At Home Independent Call Center Agent Relationship Specialty Start Date End Date Fely Bey FNP [address] [place] [address] PCP - General Family Medicine 05/20/22 documented as of this encounter
--- OUTSIDE RECORDS SUMMARY | 2025-08-15 15:49 | XMS_ITS | Encounter Summary ---
Author Organization [employer] Address 75 [facility] 7 [place] [address] Care Team Providers Care Peoplesoft Hrms Developer Name Role Phone Fely Bey Primary Care Provider [phone] Reason for Visit * Reason Onset Date Comments ER Follow-up 08/10/2023 Encounter Details Date Type Department Care Team (Late st Contact Info) Description 08/10/2023 Telephone [facility] MEDICINE [address] [place] [address] Fely Bey FNP [address] [place] [address] ER Follow-up Social History Tobacco Use Types [...] regarding message below. Pt states going to [facility] ED on 08/08/23 for R sided lower [...] to go to ED. Pt agrees to [facility] appt tomorrow with provider to discuss further POC. ED notes printed and sent to scan. * Telephone Encounter - Christo López - 08/10/2023 8:25 AM EST Tc from patient requesting a ER follow up appt was in the ER at [facility] on 08/08 for lower back pain. If possible to contact patient after 2 pm after work. documented in this encounter Plan of Treatment Not on file documented as of this encounter Visit Diagnoses Not on filedocumented in this encounter Care Teams Peoplesoft Hrms Developer Relationship Specialty Start Date End Date Fely Bey FNP [address] [place] [address] PCP - General Family Medicine 05/20/22 documented as of this encounter
--- OUTSIDE RECORDS SUMMARY | 2025-08-15 15:49 | XMS_ITS | Encounter Summary ---
Author Organization [employer] Address 75 [facility] 7 [place] [address] Care Team Providers Care Embedded Software Architect Name Role Phone Fely Bey Primary Care Provider [phone] Reason for Visit * Reason Comments Med Refill Encounter Details Date Type Department Care Team (Late st Contact Info) Description 04/14/2023 Refill [facility] MEDICINE [address] [place] [address] Fely Bey FNP [address] [place] [address] Social History Tobacco Use Types Packs/Day Years [...] on filedocumented in this encounter Care Teams Embedded Software Architect Relationship Specialty Start Date End Date Fely Bey FNP [address] [place] [address] PCP - General Family Medicine 05/20/22 documented as of this encounter
--- OUTSIDE RECORDS SUMMARY | 2025-08-15 15:49 | XMS_ITS | Encounter Summary ---
Author Organization [employer] Address 75 [facility] 7 [place] [address] Care Team Providers Care Recorder Of Deeds Name Role Phone Fely Bey Primary Care Provider [phone] Reason for Visit * Reason Onset Date Comments Med Refill 08/10/2024 Encounter Details Date Type Department Care Team (Late st Contact Info) Description 08/10/2024 Refill [facility] MEDICINE [address] [place] [address] Fely Bey FNP [address] [place] [address] Class 3 severe obesity due to excess [...] documented as of this encounter Care Teams Recorder Of Deeds Relationship Specialty Start Date End Date Fely Bey FNP [address] [place] [address] PCP - General Family Medicine 05/20/22 documented as of this encounter
--- OUTSIDE RECORDS SUMMARY | 2025-08-15 15:50 | XMS_ITS | Clinical Summary ---
Author Organization [facility] [employer] Address [address] 7 [place] [address] Care Team Providers Care Finding Fastener Name Role Phone Fely Bey IZZY Primary Care Provider [phone] Allergies No known active allergies Medications 28-0.8 MG tablet Take 1 tablet by mouth Once per day. 90 tablet 3 025 2025 Active D-MANNOSE PO Take by mouth. Over the counter supplement: O-POSITIVE. Contains Vit C, D-mannose, and Cranberry extract 2024 Discontinued(T herapy completed) norethindrone (Micronor) 0.35 MG tabletIndication s:Encounter for initial prescription of contraceptive pills Take 1 tablet (0.35 mg) by mouth Once per day. 90 tablet 3 2024 Discontinued(T herapy completed) Chelsea 30 MG tabletIndication s:Encounter for initial prescription of contraceptive pills TAKE 1 TABLET SOON POSSIBLE WITHIN 5 DAYS AFTER UNPROTECTED SEX OR IF YOU HAD A CONTROL FAILURE. MAY BE TAKEN WITH OR WITHOUT FOOD. 1 tablet 025 2024 Discontinued(T herapy completed) cyanocobalamin (Vitamin B-12) 1000 MCG tabletIndication s:Vitamin B12 deficiency Take 1 tablet (1,000 mcg) by mouth Once per day. 90 tablet 1 025 2024 Discontinued(T herapy completed) cholecalciferol (Vitamin D3) 25 MCG (1000 UT) tabletIndication s:Vitamin D insufficiency Take 1 tablet (25 mcg) by mouth in the morning. 90 tablet 3 2024 Discontinued(T herapy completed) Magnesium 400 MG capsule Take 400 mg by mouth at bedtime. 90 capsule 1 025 2024 Discontinued(T herapy completed) ferrous gluconate (Fergon) 324 (38 Fe) MG tabletIndication s:Iron deficiency Take 1 pill every Wednesday, Wednesday, and Wednesday. Take with a full glass of water or Vit C containing juice, and ideally 1 hour before a meal or 2 hours after a meal 36 tablet 2024 Discontinued(T herapy completed) Tirzepatide-Weig ht Management (Zepbound) 7.5 MG/0.5ML solution auto-injector Inject 0.5 mL (7.5 mg) under the skin 1 (one) time per week. 2 mL 2 2024 Discontinued(T herapy completed) nitrofurantoin, macrocrystal-mon ohydrate, (Macrobid) 100 MG capsule Take 1 capsule (100 mg) by mouth 2 times daily for 5 days. 10 capsule 025 2024 Discontinued nitrofurantoin, macrocrystal-mon ohydrate, (Macrobid) 100 MG capsule Take 1 capsule (100 mg) by mouth 2 times daily for 5 days. 10 capsule 2024 fluconazole (Diflucan) 150 MG tablet Take 1 tablet (150 mg) by mouth 1 (one) time per week for 14 days. 2 tablet 2024 Discontinued(R eorder (will not trigger notification to Pharmacy)) fluconazole (Diflucan) 150 MG tablet Take 1 tablet (150 mg) by mouth 1 (one) time per week for 14 days. 2 tablet 025 2024 Discontinued(T herapy completed) 28-0.8 MG tablet Take 1 tablet by mouth Once per day. 90 tablet 3 025 2024 Discontinued(R eorder (will not trigger notification to Pharmacy)) Active Problems Problem Noted Date Diagnosed Date Bilateral carpal tunnel syndrome 12/26/2024 Overview (05/30/2025): 12/26/24: EMG completed and demonstrated mild bilateral ulnar neuropathy across cubital tunnel and mild bilateral median neuropathy across carpal tunnel. Cont wrist splints [facility] consult Apr 2025: plan to proceed [...] neuropathy across carpal tunnel. Cont wrist splints [facility] consult Apr 2025: plan to proceed with right cubital tunnel release and right carpal tunnel release under general anesthesia. Chest wall pain 10/02/2024 Joint pain in both hands 09/27/2024 Assessment & Plan (03/28/2025 9:58 AM EDT): -JOSE, RF, CRP, sed rate wnl Oct 2024 -Intermittent swelling and joint pains in fingers -Referral to [facility] Assessment & Plan (09/27/2024 3:43 PM [...] Overview (03/28/2025): Lab Results Component Value Date [id number] 17.8 (L) 03/12/2025 [id number] 31.9 11/01/2024 [id number] 25.8 (L) 07/12/2024 Assessment & Plan (03/28/2025 [...] decision making to proceed with PA for Veronique. Reviewed med use, safety, and SE. -Plan to follow up for teaching pending approval of medication Assessment & Plan (01/06/2023 11:11 PM EDT): -Discussed lifestyle interventions and multitude of factors (genetic, environmental, hormonal) that contribute to weight. More important is healthy behavioral habits. Resolved Problems Problem Noted Date Diagnosed Date Resolved Date Vaginal akosua 07/24/2025 08/06/2025 Left upper quadrant abdominal pain 10/02/2024 03/28/2025 Left lower quadrant abdominal pain 10/02/2024 03/28/2025 Encounters Date Type Department Care Team Description 08/15/2025 Orders Only [facility] [address] [place] [address] Fely Bey FNP Healthcare maintenance (Primary Dx) 08/06/2025 4:00 PM EST Telemedicine [facility] [address] [place] [address] Fely Bey FNP Less than 8 weeks gestation of (Primary Dx) 08/06/2025 Travel 08/04/2025 Refill [facility] [address] [place] [address] Fely Bey FNP 08/03/2025 Orders Only [facility] [address] [place] [address] Fely Bey FNP 07/24/2025 Results Follow-Up [facility] [address] [place] [phone] Swati Blount NP Bacterial Vaginosis, Culture, Urine, Routine, POCT , urine manually resulted, Additional followed-up results: 2 07/20/2025 3:20 PM EDT Office Visit [facility] [address] [place] [phone] Swati Blount NP Dysuria (Primary Dx); Vaginal discharge 07/20/2025 Travel 07/05/2025 Refill [facility] [address] [place] [address] Fely Bey FNP Class 1 obesity with body mass index (BMI) of 34.0 to 34.9 in adult, unspecified obesity type, unspecified whether serious comorbidity present 06/20/2025 Refill [facility] [address] [place] [address] Fely Bey FNP Iron deficiency 05/31/2025 Results Follow-Up [facility] [address] [place] [address] Fely Bey FNP Respiratory Viral Panel PCR 05/30/2025 10:15 AM EDT Office Visit [facility] [address] [place] [address] Fely Bey FNP Temporomandibular joint click (Primary Dx); Sore throat; Cubital tunnel syndrome of both upper extremities; Bilateral carpal tunnel syndrome; Class 1 obesity with body mass index (BMI) of 34.0 to 34.9 in adult, unspecified obesity type, unspecified whether serious comorbidity present 05/30/2025 Orders Only [facility] [address] [place] [address] Fely Bey FNP 05/30/2025 Travel 05/29/2025 Telephone [facility] [address] [place] [address] [phone] Fely Bey FNP CHART PREP 05/23/2025 Refill [facility] [address] [place] [address] Fely Bey FNP Class 1 obesity with body mass index [...] 09/27/2025 09/27/2024 Depression Screening 09/27/2025 09/27/2024, 09/27/19 Disability Screening 03/28/2026 03/28/2025 SDOH Screening 03/28/2026 03/28/2025 Family Planning (PISQ) 04/02/2026 04/02/2025 Tobacco Screening 08/06/2026 08/06/2025 Lipid Panel 08/08/2026 08/08/2021, 07/10/2020 Zoster Vaccines [...] Routine 08/15/2025 1:20 PM EST Healthcare maintenance HCG, TOTAL, QN Routine 08/06/2025 9:40 AM EST Encounter for test, result unknown HCG, TOTAL, QN Routine 08/03/2025 10:05 AM EST Encounter for test, result unknown POCT URINALYSIS DIPSTICK Routine 07/20/2025 4:14 PM EDT Dysuria POCT , URINE Routine 07/20/2025 3:57 PM EDT Vaginal discharge CHLAMYDIA/N. GONORRHOEAE RNA, TMA, UROGENITAL Routine 07/20/2025 3:56 PM EDT Vaginal discharge CULTURE, URINE, ROUTINE Routine 07/20/2025 3:56 PM EDT Dysuria BACTERIAL VAGINOSIS PANEL Routine 07/20/2025 3:56 PM EDT Vaginal discharge RESPIRATORY VIRAL PANEL [...] Health Maintenance Results * hCG, Total, Quantitative (08/15/2025 1:20 PM EST) Only the most recent of3 resultswithin the time period is included. HCG Quantitative 12,007 mIU/mL [facility] Comment:Weeks post LMP Appro ximate hCG(Last Menstrual Period) Range (mIU/ml)3 - 4 weeks 9 - 1304 - 5 weeks 75 - 2,6005 - 6 weeks 850 - 20,8006 - 7 weeks 4000 - 100,2007 - 12 weeks 11,500 - 289,68029 - 16 weeks 18,300 - 137,46273 - 29 weeks (2nd trimester) 1,400 - 53,49493 - 41 weeks (3rd trimester) 940 - [...] PM EST 08/15/2025 1:20 PM EST Fely Bey [employer]OUD [employer]STRU[employer] ARCHITECT LAB BLOOD ORDERABLES Final Res ult [facility] [address] [place] [phone] * (ABNORMAL) POCT urinalysis dipstick manually resulted (CPT 46865) (07/20/2025 4:14 PM EDT) Color, UA Yellow [...] Urine 07/20/2025 3:57 PM EDT Swati Blount NP POINT OF CARE TEST ENTER/EDIT OR DERABLES Final Result * (ABNORMAL) Bacterial Vaginosis (07/20/2025 3:56 PM EDT) TRICHOMONAS VAGINALIS DETECTION BY PCR NOT DETECTED Not Detect [facility] BACTERIAL VAGINOSIS DETECTION BY PCR NEGATIVE Negative [facility] Comment:The BV organism targ ets [...] evaluatedin patients under the age of 14. AKOSUA GROUP DETECTION BY PCR DETECTED(A) Not Detect [facility] Akosua glab krusei PCR NOT DETECTED Not Detect [facility] Swab Vaginal structure / Unknown 07/20/2025 3:56 PM EDT 07/20/2025 6:26 PM EDT us Swati Blount NP LAB MICROBIOLOGY - GENERAL ORDER JULIA Final Result [facility] [address] [place] [phone] * Chlamydia/N. Gonorrhoeae RNA, TMA, Urogenitial (07/20/2025 3:56 PM EDT) CT PCR NOT DETECTED Not Detect. [facility] Comment:A not detected test result [...] psychologicalconsequences. NG PCR NOT DETECTED Not Detect. [facility] Comment:A not detected test result [...] to adverse medical, social or psychologicalconsequences. Swab Vaginal structure / Unknown 07/20/2025 3:56 PM EDT 07/20/2025 6:26 PM EDT Swati Blount NP LAB MICROBIOLOGY - GENERAL ORDER JULIA Final Result Performing Organization Address City/[facility]/ZIP Co de Phone Number [facility] [address] [place] [phone] * Culture, Urine, Routine (07/20/2025 3:56 PM EDT) Urine Urine specimen obtained by clean catch procedure / Unknown 07/20/2025 3:56 PM EDT 07/20/2025 6:26 PM EDT Comment:UACC Narrative [facility] - 07/22/2025 12:26 PM EST Urine Culture No growth. Specimen Source: Urine clean catch Swati Blount NP LAB MICROBIOLOGY - GENERAL ORDER JULIA Final Result [facility] [address] [place] [phone] [phone] * Respiratory Viral Panel PCR (05/30/2025 1:47 PM EDT) Adenovirus PCR Not Detected Not Detect. [facility] Bordetella pertussis PCR Not Detected Not Detect. [facility] Comment:Interpret results wi th caution. If B. pertussis isspecifically suspected, additional testing using analternate method is recommended. Bordetella parapertussis PCR Not Detected Not Detect. [facility] Chlamydia pneumoniae PCR Not Detected Not Detect. [facility] Coronavirus 229E PCR Not Detected Not Detect. [facility] Coronavirus HKU1 PCR Not Detected Not Detect. [facility] Coronavirus NL63 PCR Not Detected Not Detect. [facility] Coronavirus OC43 PCR Not Detected Not Detect. [facility] SARS-CoV-2 PCR Not Detected Not Detect. [facility] Comment:SARS-CoV-2 not detec nan by real-time RT-PCR.Note: If clinical suspicion for Sars-CoV-2 is high, continueto maintain precautions and consider repeat testing.Test results should be interpreted in the context ofclinical findings and other laboratory data.Rare polymorphisms exist that could lead to false-negativeor false-positive results. If results do not match theclinical findings, additional testing should be considered.Results reported to [facility].This test has been authorized by the FDA under the EmergencyUse Authorization (EUA) for use by authorized laboratories. Influenza A PCR Not Detected Not Detect. [facility] Influenza A Subtype H1 Not Detected Not Detect. [facility] Influenza A H1-2009 PCR Not Detected Not Detect. [facility] Influenza A Subtype H3 Not Detected Not Detect. [facility] Influenza B PCR Not Detected Not Detect. [facility] Human metapneumovirus PCR Not Detected Not Detect. [facility] Rhino/Enterovirus PCR Not Detected Not Detect. [facility] Mycoplasma pneumoniae PCR Not Detected Not Detect. [facility] Parainfluenza 1 PCR Not Detected Not Detect. [facility] Parainfluenza 2 PCR Not Detected Not Detect. [facility] Parainfluenza 3 PCR Not Detected Not Detect. [facility] Parainfluenza 4 PCR Not Detected Not Detect. [facility] RSV PCR Not Detected Not Detect. [facility] Resp Panel NA Note See Note H [facility] Comment:All results must be correlated [...] assay is performed by Multiplexed PCR, utilizing [employer] Film Array. 05/30/2025 1:47 PM EDT 05/30/2025 6:56 PM EDT us Fely Bey [employer] ARCHITECT LAB BLOOD ORDERABLES Final Res ult [facility] [address] [place] [phone] [phone] * HIV 1/2 ANTIGEN/ANTIBODY,FOURTH GENERATION W/RFL (07/20/2022 11:52 AM EDT) Pathologist [facility] HIV-1/2 ANTIGEN AND ANTIBODIES, 4TH GENERATION W/ [...] purpose. For additional information please refer to http://education.Riskified/faq/WOH710 (This link is being provided for informational/ educational purposes only.) The performance of this assay has not been clinically validated in patients less than 2 years old. 07/20/2022 11:5 2 AM EDT Yaritza Aranda [facility] LAB BLOOD ORDERABLES Courtney l Result Performing Organization Address [facility] de Phone Number [facility] * HEPATITIS C AB W/REFL TO HCV RNA, QN, PCR (06/01/2022 10:49 AM EDT) Pathologist [facility] HEPATITIS C ANTIBODY NON-REACT MARYLU NON-REACT MARYLU [facility] INDEX 0.08 <1.00 [facility] Comment: HCV antibody was non-reactive. There is no laboratory evidence of HCV infection. In most cases, no further action is required. However, if recent HCV exposure is suspected, a test for HCV RNA (test code 90970) is suggested. For additional information please refer to http://Sigmascreening.Riskified/faq/ZFE68e4 (This link is being provided for informational/ educational purposes only.) 06/01/2022 10:4 9 AM EDT Milla Castillo NP HISTORICAL/NON ORDERABLE LABS Final Result Performing Organization Address [facility] de Phone Number [facility] [address] * (ABNORMAL) LIPID PANEL, STANDARD (08/08/2021 9:18 AM EST) Pathologist [facility] Chol/HDLC Ratio 3.7 <5.0 (calc) [facility] Cholesterol, Total 159 <200 mg/dL [facility] HDL Cholesterol 43(L) > OR = 50 mg/dL [facility] LDL Cholesterol 99 mg/dL (calc) [facility] Comment: Reference range: <100 Desirable range <100 mg/dL for primary prevention; <70 mg/dL for patients with CHD or diabetic patients with > or = 2 CHD risk factors. LDL-C is now calculated using the Negro calculation, which is a validated novel method providing better accuracy than the Friedewald equation in the estimation of LDL-C. Cristobal SEAMAN et al. DIONNE. 2013;310(19): 2804-6432 (http://education.AmberWave/faq/FUS433) Non-HDL Cholesterol 116 <130 mg/dL (calc) [facility] Comment: For patients with diabetes plus 1 major ASCVD risk factor, treating to a non-HDL-C goal of <100 mg/dL (LDL-C of <70 mg/dL) is considered a therapeutic option. Triglycerides 78 <150 mg/dL [facility] 08/08/2021 9:18 AM EST us Milla Castillo NP LAB BLOOD ORDERABLES Final Res ult [facility] [address] * THINPREP TIS PAP (09/24/2020 12:00 AM EST) Clinical Information: None given [facility] COMMENT SEE COMMENT [facility] [...] has been evaluated with computer assisted technology. [facility] Breast Buffer : SEE COMMENT [facility] Comment: SXA, CT(ASCP) CT screening location: [place] [address] Interpretation/R esult: Negative for intraepithelial lesion or malignancy. [facility] LMP: NONE GIVEN [facility] Prev. BX: NONE GIVEN [facility] Prev. PAP: NONE GIVEN [facility] SOURCE: None given [facility] Statement Of Adequacy: SEE COMMENT [facility] Comment: Satisfactory for evaluation. Endocervical/transformation zone component absent. Age and/or menstrual status not provided 09/24/2020 Historical Provider MD LAB PATHOLOGY ORDERABLES Final Result Performing Organization Address [facility] Co de Phone Number [facility] [address] * HPV mRNA E6/E7 (09/24/2020 12:00 AM EST) HPV nRNA E6/E7 Not Detected Not Detected [facility] Comment: This test was performed using the APTIMA HPV Assay ([employer] This assay detects E6/E7 viral messenger RNA (mRNA) from 14 high-risk HPV types (16,18,31,33,35,39,45,51,52,56,58,59,66,68). The analytical performance characteristics of this assay have been determined by [employer]. The modifications have not been cleared or approved by the FDA. This assay has been validated pursuant to the CLIA regulations and is used for clinical purposes. 09/24/2020 Historical Provider MD LAB BLOOD ORDERABLES Courtney l Result Performing Organization Address [facility] Co de Phone Number [facility] [address] from Last 3 Months or Most Recently Relevant to Health Maintenance Insurance [facility] C3 Care Teams Finding Fastener Relationship Specialty Start Date End Date Fely Bey FNP [address] [place] [address] PCP - General Family Medicine 05/20/22
== END 2025-08-15 12:48 | disposition home or self-care (01) ==
LOC: HO.LAB 12:47
PROVIDERS: Visit Provider Registered Nurse
DX: Z00.00 Encounter for general adult medical examination without abnormal findings (principal)
CPT/HCPCS: 36415; 84702